=== PATIENT | female | born 1935 | race Caucasian/White ===

== ENCOUNTER → 2020-10-23 11:30 | Outpatient (CLI) | payer MEDICARE, OTHER, SELFPAY ==
--- NOTE | 2020-10-23 | DI.MRI.S_ITS ---
PROCEDURE: MR HEAD/BRAIN WO/W CON INDICATIONS: Other abnormalities of gait and mobility TECHNIQUE: Noncontrast axial T1 spin echo, axial T2 fast spin echo, sagittal and axial FLAIR, coronal T2 fast spin echo, axial gradient echo, axial diffusion and ADC through the brain. After the administration of contrast, axial and coronal T1 spin echo with fat saturation through the brain. COMPARISON: None. FINDINGS: Image quality: Excellent. CSF spaces: Basal cisterns are patent. No extra-axial fluid collections. Ventricles are normal in size and shape. Brain: No midline shift. No intracranial bleeds or masses. No abnormal intracranial enhancement. There is cerebral volume loss for age. There is periventricular white matter chronic small vessel ischemic change. The brainstem appears normal. Diffusion-weighted images demonstrate no acute ischemic insults. No chronic ischemic insults. Normal intravascular flow voids are present. Skull and face: Calvarial marrow is normal in signal. Orbits appear normal. Sinuses: Sinuses and mastoids appear clear. IMPRESSION: 1. No acute intracranial process. 2. Moderate atrophy and chronic microvascular ischemic changes. Dictated by: Sherry Fishman M.D. on 10/23/2020 at 16:37 Approved by: Sherry Fishman M.D. on 10/23/2020 at 16:40
== END ==
PROVIDERS: PCP Family Medicine; Referring Provider Nurse Practitioner; Visit Provider Nurse Practitioner
DX: R26.89 Other abnormalities of gait and mobility (principal); R29.6 Repeated falls; R51.9 Headache, unspecified
CPT/HCPCS: 70553; A9579

== ENCOUNTER → 2022-02-24 11:01 | Outpatient (CLI) | payer MEDICARE, OTHER, SELFPAY ==
--- NOTE | 2022-02-24 | DI.RAD.S_ITS ---
PROCEDURE: FL JOINT INJECTION MEDIUM LT INDICATIONS: Primary osteoarthritis, left shoulder COMPARISON: None. TECHNIQUE: The indications, alternatives, benefits, risks, and complications of the procedure were explained to the patient. Written informed consent was obtained and placed in the chart. The patient was placed in an appropriate position on the fluoroscopy table, and a site was chosen for percutaneous access under fluoroscopic guidance. The site was prepped and draped in a sterile fashion. Local anesthetic was administered using a 1% lidocaine solution. A hypodermic or spinal needle was then used to access the symptomatic joint. Intra-articular location of the needle tip was confirmed by injecting a small amount of contrast, followed by steroid administration. The needle was then withdrawn, and a bandage applied to the puncture site. FINDINGS: Joint injected: Left shoulder Medications injected: 4 mL of 40 mg/mL Kenalog and 0.5% Ropivacaine mixture. Patient's pain before injection: 7 out of 10. Patient's pain after injection: 0 out of 10. Complications: None. IMPRESSION: Successful fluoroscopically guided administration of steroid and anaesthetic solution into the left glenohumeral joint. Dictated by: Sb Castro M.D. on 02/24/2022 at 14:42 Approved by: Sb Castro M.D. on 02/24/2022 at 14:42
== END ==
PROVIDERS: PCP Counselor Mental Health; Referring Provider Counselor Mental Health; Visit Provider Counselor Mental Health
DX: M19.012 Primary osteoarthritis, left shoulder (principal)
CPT/HCPCS: 20605; 76000

== ENCOUNTER 2022-06-18 11:54 | Inpatient (IN) | payer MEDICARE, OTHER, SELFPAY ==
[2022-06-18] VITALS (19 sets, daily range): BP systolic 129–177; BP diastolic 55–107; PULSE 62–115; RESP 12–20; TEMP 36.1–37.2; O2SAT 94–100; BMI 26.9
--- NOTE | 2022-06-18 | DI.RAD.S_ITS ---
PROCEDURE: XR FEMUR RT MIN 2V INDICATIONS: Right Intramedullary Nailing Femur TECHNIQUE: 4 views of the femur were acquired. COMPARISON: [facility], CR, XR FEMUR RT MIN 2V, 06/18/2022, 13:36. FINDINGS: 4 intraoperative fluoroscopic images demonstrate postsurgical changes status post open reduction internal fixation of the previously visualized subtrochanteric fracture of the proximal right femur. There is improved alignment with interval placement of an intramedullary luisito and telescoping screws through the femoral neck. IMPRESSION: 1. Intraoperative films demonstrate improved alignment status post ORIF of a subtrochanteric right femoral fracture. Dictated by: Huber Stallworth M.D. on 06/18/2022 at 21:16 Approved by: Huber Stallworth M.D. on 06/18/2022 at 21:17
--- NOTE | 2022-06-18 12:14 | DI.RAD.S_ITS ---
PROCEDURE: XR HIP W PEL IF DONE RT 2V INDICATIONS: Fall TECHNIQUE: AP pelvis with lateral view(s) of the right hip(s). COMPARISON: None. FINDINGS: Bones: Acute slightly comminuted fracture involving intertrochanteric region of proximal right femur is seen with superior and medial migration of proximal femoral shaft in relation to femoral neck. Bilateral hip joint osteoarthritic changes are seen. No evidence of avascular necrosis of femoral head. Pelvic ring appears intact. No suspicious bony lesions. Soft tissues: The visualized bowel gas pattern is normal. No suspicious soft tissue calcifications. IMPRESSION: Comminuted and displaced fracture involving intertrochanteric region of right proximal femur as above. Dictated by: Sb Castro M.D. on 06/18/2022 at 13:09 Approved by: Sb Castro M.D. on 06/18/2022 at 13:10
--- NOTE | 2022-06-18 12:18 | DI.RAD.S_ITS ---
PROCEDURE: XR LUMBAR SPINE 2-3V INDICATIONS: fall TECHNIQUE: 3 views of the lumbar spine were acquired. COMPARISON: None. FINDINGS: Bones: 5 [id number] vertebrae are present. There is normal bony alignment. Loss of disc height, degenerative endplate changes and bilateral facet arthrosis throughout lumbar spine is seen most notably at L3-4 and L5-S1 levels. No vertebral body compression fractures. No suspicious bony lesions. Soft tissues: Overlying bowel gas pattern is normal. No suspicious soft tissue calcifications. IMPRESSION: No acute lumbar spine compression fracture or spondylolisthesis. Degenerative disc disease throughout lumbar spine as above. Dictated by: Sb Castro M.D. on 06/18/2022 at 13:06 Approved by: Sb Castro M.D. on 06/18/2022 at 13:07
[2022-06-18] MEDS: HYDROMORPHONE 0.5 MG INJ IV ×4 (12:31→22:30)
--- NOTE | 2022-06-18 12:33 | ED_ITS ---
HPI - Fall <JAYLEN Thomas - Last Filed: 06/18/22 16:09> General Chief Complaint: Fall Stated Complaint: fell backwards, pelvic pain, no thinners Time Seen by Provider: 06/18/22 12:13 Source: patient and EMS Mode of arrival: EMS History of Present Illness HPI Narrative: This is an 86-year-old female who presents to the emergency department via EMS after she stumbled on a step falling backwards on her buttocks and now complains of low back pain, right groin pain, right lateral hip pain and states that is much worse than her normal sciatica. Patient received 100 mics of fentanyl EN route to the emergency department, she did not hit her head, denies loss of consciousness or nausea vomiting. Patient's PCP is Dr. Bhatia. Patient has a history of chronic low back pain with sciatica. She is not anticoagulated, states that she is otherwise healthy. She is able to move her toes, denies any sensation changes, her foot is warm and she is able to dorsiflex and plantar extend. Patient states that she takes Benicar 40 mg daily and sertraline 25 mg, these are her medications. Has a history of osteoarthritis and hypertension. Her primary care provider is Dr. Smith. Related Data Home Medications Medication Instructions Recorded Confirmed olmesartan 40 mg tablet 40 mg PO DAILY 06/18/22 06/18/22 sertraline 25 mg tablet 25 mg PO DAILY 06/18/22 06/18/22 Allergies Allergy/AdvReac Type Severity Reaction Status Date / Time dihydroergotamine Allergy Verified 06/18/22 12:41 Review of Systems <JAYLEN Thomas - Last Filed: 06/18/22 16:09> Review of Systems ROS Unobtainable: All systems reviewed & are unremarkable except as noted in HPI and below Patient History <JAYLEN Thomas - Last Filed: 06/18/22 16:09> Social History household members: family Smoking Status: Never smoker alcohol intake: current Smoking Status: Never smoker alcohol intake frequency: 0-2 drinks per day Substance Use Type: does not use Exam <JAYLEN Thomas - Last Filed: 06/18/22 16:09> Narrative Exam Narrative: Reviewed vitals signs and nursing notes. General: cooperative, comfortable, in no acute distress, well groomed, complains of pain HEENT: symmetrical facial expressions, moist mucous membranes Cardiovascular: regular rate and rhythm, no peripheral edema, warm extremities Respiratory: normal effort, able to speak in complete sentences, without wheezing, stridor, or abnormal breath sounds. No retractions or tachypnea. GI: abdomen soft, nontender to palpation, nondistended, without masses, rebound tenderness or exquisite tenderness with exam. MSK: moves all extremities, neurovascularly intact, no weakness, normal tone, patient able to dorsiflex and plantar extend on the right without deficit, PT and DP pulses are 2+, right lower extremity is not significantly shortened or rotated, movement of right leg elicits right hip pain and right inguinal pain, patient denies numbness to her groin or incontinence Foot is neurovascularly intact, patient able to move her lower extremity Skin: brisk capillary refill, without pallor or erythema Neuro: normal speech and cognition, A&O x3, clear speech Psych: mental status is grossly normal, congruent mood, normal affect, pleasant and cooperative Initial Vital Signs Initial Vital Signs: Vital Signs Temperature 97.6 F 06/18/22 12:02 Pulse Rate 77 06/18/22 12:02 Blood Pressure 164/72 H 06/18/22 12:02 Pulse Oximetry 98 06/18/22 12:02 Oxygen Delivery Method 06/18/22 12:02 <Azeem Dolan MD - Last Filed: 06/18/22 17:40> Initial Vital Signs Initial Vital Signs: Vital Signs Temperature 97.6 F 06/18/22 12:02 Pulse Rate 77 06/18/22 12:02 Blood Pressure 164/72 H 06/18/22 12:02 Pulse Oximetry 98 06/18/22 12:02 Oxygen Delivery Method 06/18/22 12:02 Course <JAYLEN Thomas - Last Filed: 06/18/22 16:09> Orders Ordered: ED Orders 06/18/22 12:14 XR hip w pel if done RT 2V Stat 06/18/22 12:18 XR lumbar spine 2-3V Stat 06/18/22 13:23 Consult to Orthopedic Surgery Stat 06/18/22 13:26 CT pelvis wo con Stat XR femur RT min 2V Stat Covid-19 + FLU A/B + RSV - PCR Stat 06/18/22 13:50 Consult to Occupational Therapy Evaluate & Treat Consult to Physical Therapy Evaluate & Treat 06/18/22 14:14 CBC Auto Diff [Complete Blood Count AUTO DIFF] Stat CMP [Comprehensive Metabolic Panel] Stat Magnesium Urgent Prothrombin Time INR Stat 06/19/22 05:00 BMP [Basic Metabolic Panel] DAILY CBC Auto Diff [Complete Blood Count AUTO DIFF] DAILY 06/20/22 05:00 BMP [Basic Metabolic Panel] DAILY CBC Auto Diff [Complete Blood Count AUTO DIFF] DAILY 06/21/22 05:00 BMP [Basic Metabolic Panel] DAILY CBC Auto Diff [Complete Blood Count AUTO DIFF] DAILY Acetaminophen (Acetaminophen 325 Mg Tablet) 650 mg PO Q6H PRN PRN Reason: Fever/Mild Pain (1-3) Hydromorphone HCl (Hydromorphone 0.5 Mg Inj) 0.5 mg IV Q4H PRN PRN Reason: Pain, Moderate (4-6) Last Admin: 06/18/22 16:30 Dose: 0.5 mg Documented By: RYAN Sodium Chloride (Normal Saline 0.9%) 1,000 mls @ 100 mls/hr IV CONT ANAIS Last Admin: 06/18/22 16:28 Dose: 100 mls/hr Documented By: Infusion: 06/18/22 16:28 Dose: 0 mls/hr Documented By: Infusion: 06/18/22 15:20 Dose: 0 mls/hr Documented By: Admin: 06/18/22 14:33 Dose: 100 mls/hr Documented By: JASMINA Melatonin (Melatonin 3 Mg Tablet) 6 mg PO BEDTIME PRN PRN Reason: Insomnia Oxycodone HCl (Oxycodone Ir 5 Mg Tablet) 5 mg PO Q4HR PRN PRN Reason: Pain, Moderate (4-6) Polyethylene Glycol (Polyethylene Glycol 3350 17 Gm Powd.Pack) 17 gm PO DAILY PRN PRN Reason: Constipation Sennosides (Sennosides 8.6 Mg Tablet) 8.6 mg PO BID PRN PRN Reason: Constipation Discontinued Medications Hydrocodone Bitart/Acetaminophen (Hydrocodone/Acet 5/325 Tablet) 1 tab PO NOW ONE Stop: 06/18/22 12:38 Last Admin: 06/18/22 13:34 Dose: Not Given Documented By: JASMINA Hydromorphone HCl (Hydromorphone 0.5 Mg Inj) 0.5 mg IV NOW ONE Stop: 06/18/22 12:19 Last Admin: 06/18/22 12:31 Dose: 0.5 mg Documented By: DARRIN Hydromorphone HCl (Hydromorphone 0.5 Mg Inj) 0.5 mg IV NOW ONE Stop: 06/18/22 14:20 Last Admin: 06/18/22 14:32 Dose: 0.5 mg Documented By: JASMINA Ketorolac Tromethamine (Ketorolac 30 Mg/Ml Vial) 15 mg IV NOW ONE Stop: 06/18/22 12:38 Last Admin: 06/18/22 15:16 Dose: Not Given Documented By: JASMINA Lidocaine (Lidocaine Patch 1 Each Adh..Patch) 1 each TOP NOW ONE Stop: 06/18/22 12:38 Last Admin: 06/18/22 15:16 Dose: Not Given Documented By: JASMINA Consultations Consultation #1: Consultation with Dr. Mann regarding patient's right femur fracture, he would like to take patient to the operating room MADY esparzaO, orders were placed for imaging per his request, he will admit through the hospitalist and see patient later today. He is aware that patient is neurovascularly intact and her pain control. Vital Signs Vital signs: Vital Signs - 8 hr 06/18/22 12:02 06/18/22 13:07 06/18/22 13:08 Temperature 97.6 F Pulse Rate 77 69 70 Respiratory Rate Blood Pressure 164/72 H Pulse Oximetry 98 100 100 Oxygen Delivery Method Room Air Room Air 06/18/22 13:09 06/18/22 13:09 06/18/22 13:30 Temperature Pulse Rate 65 Respiratory Rate Blood Pressure 151/67 H 160/74 H Pulse Oximetry 100 Oxygen Delivery Method 06/18/22 13:30 06/18/22 13:10 Temperature Pulse Rate 70 68 Respiratory Rate 18 Blood Pressure 151/67 H Pulse Oximetry 99 97 Oxygen Delivery Method Room Air <Azeem Dolan MD - Last Filed: 06/18/22 17:40> Orders Ordered: ED Orders 06/18/22 12:14 XR hip w pel if done RT 2V Stat 06/18/22 12:18 XR lumbar spine 2-3V Stat 06/18/22 13:23 Consult to Orthopedic Surgery Stat 06/18/22 13:26 CT pelvis wo con Stat XR femur RT min 2V Stat Covid-19 + FLU A/B + RSV - PCR Stat 06/18/22 13:50 Consult to Occupational Therapy Evaluate & Treat Consult to Physical Therapy Evaluate & Treat 06/18/22 14:14 CBC Auto Diff [Complete Blood Count AUTO DIFF] Stat CMP [Comprehensive Metabolic Panel] Stat Magnesium Urgent Prothrombin Time INR Stat 06/19/22 05:00 BMP [Basic Metabolic Panel] DAILY CBC Auto Diff [Complete Blood Count AUTO DIFF] DAILY 06/20/22 05:00 BMP [Basic Metabolic Panel] DAILY CBC Auto Diff [Complete Blood Count AUTO DIFF] DAILY 06/21/22 05:00 BMP [Basic Metabolic Panel] DAILY CBC Auto Diff [Complete Blood Count AUTO DIFF] DAILY Acetaminophen (Acetaminophen 325 Mg Tablet) 650 mg PO Q6H PRN PRN Reason: Fever/Mild Pain (1-3) Hydromorphone HCl (Hydromorphone 0.5 Mg Inj) 0.5 mg IV Q4H PRN PRN Reason: Pain, Moderate (4-6) Last Admin: 06/18/22 16:30 Dose: 0.5 mg Documented By: RYAN Sodium Chloride (Normal Saline 0.9%) 1,000 mls @ 100 mls/hr IV CONT ANAIS Last Admin: 06/18/22 16:28 Dose: 100 mls/hr Documented By: Infusion: 06/18/22 16:28 Dose: 0 mls/hr Documented By: Infusion: 06/18/22 15:20 Dose: 0 mls/hr Documented By: Admin: 06/18/22 14:33 Dose: 100 mls/hr Documented By: JASMINA Melatonin (Melatonin 3 Mg Tablet) 6 mg PO BEDTIME PRN PRN Reason: Insomnia Oxycodone HCl (Oxycodone Ir 5 Mg Tablet) 5 mg PO Q4HR PRN PRN Reason: Pain, Moderate (4-6) Polyethylene Glycol (Polyethylene Glycol 3350 17 Gm Powd.Pack) 17 gm PO DAILY PRN PRN Reason: Constipation Sennosides (Sennosides 8.6 Mg Tablet) 8.6 mg PO BID PRN PRN Reason: Constipation Discontinued Medications Hydrocodone Bitart/Acetaminophen (Hydrocodone/Acet 5/325 Tablet) 1 tab PO NOW ONE Stop: 06/18/22 12:38 Last Admin: 06/18/22 13:34 Dose: Not Given Documented By: JASMINA Hydromorphone HCl (Hydromorphone 0.5 Mg Inj) 0.5 mg IV NOW ONE Stop: 06/18/22 12:19 Last Admin: 06/18/22 12:31 Dose: 0.5 mg Documented By: DARRIN Hydromorphone HCl (Hydromorphone 0.5 Mg Inj) 0.5 mg IV NOW ONE Stop: 06/18/22 14:20 Last Admin: 06/18/22 14:32 Dose: 0.5 mg Documented By: JASMINA Ketorolac Tromethamine (Ketorolac 30 Mg/Ml Vial) 15 mg IV NOW ONE Stop: 06/18/22 12:38 Last Admin: 06/18/22 15:16 Dose: Not Given Documented By: JASMINA Lidocaine (Lidocaine Patch 1 Each Adh..Patch) 1 each TOP NOW ONE Stop: 06/18/22 12:38 Last Admin: 06/18/22 15:16 Dose: Not Given Documented By: JASMINA Vital Signs Vital signs: Vital Signs - 8 hr 06/18/22 12:02 06/18/22 13:07 06/18/22 13:08 Temperature 97.6 F Pulse Rate 77 69 70 Respiratory Rate Blood Pressure 164/72 H Pulse Oximetry 98 100 100 Oxygen Delivery Method Room Air Room Air 06/18/22 13:09 06/18/22 13:09 06/18/22 13:30 Temperature Pulse Rate 65 Respiratory Rate Blood Pressure 151/67 H 160/74 H Pulse Oximetry 100 Oxygen Delivery Method 06/18/22 13:30 06/18/22 13:10 Temperature Pulse Rate 70 68 Respiratory Rate 18 Blood Pressure 151/67 H Pulse Oximetry 99 97 Oxygen Delivery Method Room Air MDM - Fall <Blossom Baxter, MACHINING ASSOCIATE - Last Filed: 06/18/22 16:09> Lab Data Result diagrams: 06/18/22 14:14 06/18/22 14:14 Labs: Lab Results 06/18/22 Range/Units 13:26 SARS-CoV-2 (PCR) Negative (Negative) Influenza A (RT-PCR) Flu a negative (NEGATIVE) Influenza B (RT-PCR) Flu b negative (NEGATIVE) RSV (PCR) Negative (Negative) Imaging Data lumbar xr: Radiologist's Impression: PROCEDURE:? XR LUMBAR SPINE 2-3V ? INDICATIONS:? fall ? TECHNIQUE:? 3 views of the lumbar spine were acquired.? ? COMPARISON:? None. ? FINDINGS:? ? Bones:? 5 [id number] vertebrae are present.? There is normal bony alignment.? Loss of disc height, degenerative endplate changes and bilateral facet arthrosis throughout lumbar spine is seen most notably at L3-4 and L5-S1 levels.? No vertebral body compression fractures.? No suspicious bony lesions.? ? Soft tissues:? Overlying bowel gas pattern is normal.? No suspicious soft tissue calcifications.? ? ? IMPRESSION:? No acute lumbar spine compression fracture or spondylolisthesis.? Degenerative disc disease throughout lumbar spine as above. ? ? Dictated by: Sb Castro M.D. on 06/18/2022 at 13:06 ? ? Approved by: Sb Castro M.D. on 06/18/2022 at 13:07 ? hip/pelvis xr : Radiologist's Impression: PROCEDURE:? XR HIP W PEL IF DONE RT 2V ? INDICATIONS:? Fall ? TECHNIQUE:? AP pelvis with lateral view(s) of the right hip(s).? ? COMPARISON:? None. ? FINDINGS:? ? Bones:? Acute slightly comminuted fracture involving intertrochanteric region of proximal right femur is seen with superior and medial migration of proximal femoral shaft in relation to femoral neck.? Bilateral hip joint osteoarthritic changes are seen.? No evidence of avascular necrosis of femoral head.? Pelvic ring appears intact.? No suspicious bony lesions.? ? Soft tissues:? The visualized bowel gas pattern is normal.? No suspicious soft tissue calcifications.? ? ? IMPRESSION:? Comminuted and displaced fracture involving intertrochanteric region of right proximal femur as above. ? Dictated by: Sb Castro M.D. on 06/18/2022 at 13:09 ? ? Approved by: Sb Castro M.D. on 06/18/2022 at 13:10 ? CT pelvis: Radiologist's Impression: PROCEDURE:? CT PEL WO CON ? INDICATIONS:? Right intertrochanteric fracture ? TECHNIQUE:? Noncontrast 3 mm axial sections acquired through the bony pelvis, with coronal and sagittal reformatting.? ? COMPARISON:? [facility], CR, XR HIP W PEL IF DONE RT 2V, 06/18/2022, 12:30. ? FINDINGS:? Image quality:? Excellent.? ? Bones:? There is an acute comminuted fracture involving proximal shaft of right femur with medial and proximal migration of proximal femoral shaft in relation to femoral neck and up to 6 mm impaction and up to 1.3 cm medial displacement at fracture site.? Fracture line is seen extending to involve lesser trochanter with slightly anterior and medial displacement of fractured fragments.? No other fracture or dislocation.? Right worse than left bilateral hip joint osteoarthritic changes are seen with joint space narrowing, subchondral sclerosis and marginal osteophyte formation.? No avascular necrosis of femoral head. ? Soft tissues:? There is significant soft tissue swelling and edema surrounding proximal femoral fracture site.? Asymmetrically enlarged right vastus intermedius muscle is noted anterior to the femoral shaft suggestive of intramuscular hematoma.? No abnormal soft tissue calcifications.? No significant right hip joint effusion.? No gross intra-articular loose bodies.? There is no pelvic free fluid or free air.? No abnormal bowel wall thickening.? Bladder wall thickness is normal.? Sigmoid diverticulosis is seen without evidence of acute diverticulitis. ? ? IMPRESSION:? ? 1. Acute comminuted and displaced fracture involving proximal right femoral shaft with extension to involve lesser trochanter as above.? No other fracture or dislocation. ? 2. Bilateral hip joint osteoarthritis.? No evidence of avascular necrosis of femoral head.? No suspicious intraosseous lesion. ? 3. Significant soft tissue swelling and edema surrounding proximal humeral shaft fracture site with suggestion of intramuscular hematoma in adjacent right anterior upper thigh muscle possibly involving vastus intermedius muscle. ? ? 4. No pelvic free fluid or free air.? ? Dictated by: Sb Castro M.D. on 06/18/2022 at 13:43 ? ? Approved by: Sb Castro M.D. on 06/18/2022 at 13:49 ? femur xr: Radiologist's Impression: PROCEDURE:? XR FEMUR RT MIN 2V ? INDICATIONS:? intertrochanteric fractuer ? TECHNIQUE:? 4 views of the femur were acquired.? ? COMPARISON:? None. ? FINDINGS:? ? Bones:? Acute comminuted and displaced fracture involving proximal right femoral shaft is seen with fracture line extending to involve lesser trochanter.? There is proximal and medial displacement of proximal femoral shaft in relation to femoral neck.? No fracture or dislocation is seen in mid to distal right femur..? No suspicious bony lesions.? ? Soft tissues:? No suspicious soft tissue calcifications or masses.? ? IMPRESSION:? Acute comminuted and displaced proximal femoral fracture as above.? No mid to distal femoral fracture.? ? Dictated by: Sb Castro M.D. on 06/18/2022 at 13:50 ? ? Approved by: Sb Castro M.D. on 06/18/2022 at 13:52 ? MDM Narrative Medical decision making narrative: This is an 86-year-old female presents to the emergency department via EMS after a mechanical fall where she stumbled after tripping on uneven ground falling backwards onto her right hip and sustained a closed comminuted and displaced fracture of the proximal right femoral shaft with extension to the lesser trochanter. Proximal and medial displacement of the proximal femoral shaft in relation to the femoral neck. Imaging reflex bilateral hip osteoarthritis as well, pelvis CT, x-rays and lumbar x-rays above. Patient is neurovascularly intact, consultation with Dr. Alexus BURNS from Orthopedics who will take patient to the operating room tonight, she has been NPO since 03/10 this morning, does not have history of significant medical conditions. Her pain has been treated with hydromorphone in the emergency department, she has tolerated her pain well, consultation with Dr. Moses who accepts patient for admission, likely observation status. Lab work is pending, Patient was informed of lab and imaging results, pertinent diagnoses, consulting physicians, and treatment plan. I have spoken with the patient in regard to admission, patient understands and agrees. I have communicated the patient's evaluation and treatment plan to the admitting physician who agrees with admission. All questions answered at this time. <Azeem Dolan MD - Last Filed: 06/18/22 17:40> Lab Data Labs: Lab Results 06/18/22 Range/Units 13:26 SARS-CoV-2 (PCR) Negative (Negative) Influenza A (RT-PCR) Flu a negative (NEGATIVE) Influenza B (RT-PCR) Flu b negative (NEGATIVE) RSV (PCR) Negative (Negative) Discharge Plan Departure Patient Disposition: Admitted as Observation Clinical Impression: Hx of osteoarthritis Closed right femoral fracture Qualifiers: Encounter type: initial encounter Femur location: shaft Fracture morphology: comminuted Fracture alignment: displaced Qualified Code(s): S72.351A - Displaced comminuted fracture of shaft of right femur, initial encounter for closed fracture Fall Qualifiers: Encounter type: initial encounter Qualified Code(s): W19.XXXA - Unspecified fall, initial encounter Admit Date/Time: 06/18/22 13:54 Admit Provider: Ry Moses <Azeem Dolan MD - Last Filed: 06/18/22 17:40> Cosign ED Attending Cosignature Attestation: I was immediately available in the department for consultation. ?This documentation has been reviewed and I agree with assessment and plan. Supervised by Azeem Dolan MD
--- NOTE | 2022-06-18 13:26 | DI.RAD.S_ITS ---
PROCEDURE: XR FEMUR RT MIN 2V INDICATIONS: intertrochanteric fractuer TECHNIQUE: 4 views of the femur were acquired. COMPARISON: None. FINDINGS: Bones: Acute comminuted and displaced fracture involving proximal right femoral shaft is seen with fracture line extending to involve lesser trochanter. There is proximal and medial displacement of proximal femoral shaft in relation to femoral neck. No fracture or dislocation is seen in mid to distal right femur.. No suspicious bony lesions. Soft tissues: No suspicious soft tissue calcifications or masses. IMPRESSION: Acute comminuted and displaced proximal femoral fracture as above. No mid to distal femoral fracture. Dictated by: Sb Castro M.D. on 06/18/2022 at 13:50 Approved by: Sb Castro M.D. on 06/18/2022 at 13:52
--- NOTE | 2022-06-18 13:26 | DI.CT.S_ITS ---
PROCEDURE: CT PEL WO CON INDICATIONS: Right intertrochanteric fracture TECHNIQUE: Noncontrast 3 mm axial sections acquired through the bony pelvis, with coronal and sagittal reformatting. COMPARISON: [facility], CR, XR HIP W PEL IF DONE RT 2V, 06/18/2022, 12:30. FINDINGS: Image quality: Excellent. Bones: There is an acute comminuted fracture involving proximal shaft of right femur with medial and proximal migration of proximal femoral shaft in relation to femoral neck and up to 6 mm impaction and up to 1.3 cm medial displacement at fracture site. Fracture line is seen extending to involve lesser trochanter with slightly anterior and medial displacement of fractured fragments. No other fracture or dislocation. Right worse than left bilateral hip joint osteoarthritic changes are seen with joint space narrowing, subchondral sclerosis and marginal osteophyte formation. No avascular necrosis of femoral head. Soft tissues: There is significant soft tissue swelling and edema surrounding proximal femoral fracture site. Asymmetrically enlarged right vastus intermedius muscle is noted anterior to the femoral shaft suggestive of intramuscular hematoma. No abnormal soft tissue calcifications. No significant right hip joint effusion. No gross intra-articular loose bodies. There is no pelvic free fluid or free air. No abnormal bowel wall thickening. Bladder wall thickness is normal. Sigmoid diverticulosis is seen without evidence of acute diverticulitis. IMPRESSION: 1. Acute comminuted and displaced fracture involving proximal right femoral shaft with extension to involve lesser trochanter as above. No other fracture or dislocation. 2. Bilateral hip joint osteoarthritis. No evidence of avascular necrosis of femoral head. No suspicious intraosseous lesion. 3. Significant soft tissue swelling and edema surrounding proximal humeral shaft fracture site with suggestion of intramuscular hematoma in adjacent right anterior upper thigh muscle possibly involving vastus intermedius muscle. 4. No pelvic free fluid or free air. Dictated by: Sb Castro M.D. on 06/18/2022 at 13:43 Approved by: Sb Castro M.D. on 06/18/2022 at 13:49
[2022-06-18 14:31] LABS: Influenza A - CEPHEID Flu A NEGATIVE (NEGATIVE); Influenza B - CEPHEID Flu B NEGATIVE (NEGATIVE); Respiratory Syncytial Virus Negative (Negative)
[2022-06-18 14:32] LABS: COVID-19 CEPHEID 4-PLEX PCR Negative (Negative)
[2022-06-18] MEDS: SODIUM CHLORIDE 0.9% 1,000 ML 100 ML IV ×3 (14:33→22:29)
[2022-06-18 14:36] LABS: Appearance Urine UA CLEAR; Bilirubin Urine UA NEGATIVE (NEGATIVE); Color Urine UA YELLOW; Glucose Urine UA NEGATIVE (Negative); Ketones Urine UA NEGATIVE (NEGATIVE); Leukocyte Esterase Urine UA NEGATIVE (NEGATIVE); Nitrite Urine UA NEGATIVE (Negative); Occult Blood Urine UA TRACE-INTACT (Negative); Protein Urine UA NEGATIVE (Negative); Specific Gravity Urine UA 1.025 (1.000-1.035); Urobilinogen Urine UA 0.2 E.U./dL (0.2)
[2022-06-18 14:52] LABS: Bacteria Urine None Seen; Culture Indicated Urine Cult Not Indicated; RBC Urine 1-5/HPF (0-5/HPF); Squamous Epithelial Cell Urine None Seen (0-5/HPF); WBC Urine None Seen (0-5/HPF)
[2022-06-18 15:09] LABS: Add Manual Diff / Slide Review NO; Basophils Absolute Auto 0 /uL (0-100); Basophils Percent Auto 0.1 % (0-2); Eosinophils Absolute Auto 0 /uL (0-450); Eosinophils Percent Auto 0.1 % (2-4); Hemoglobin 10.9 g/dL (12.0-16.0); Lymphocytes Absolute Auto 600 /uL (1100-4500); Lymphocytes Percent Auto 4.7 % (25-40); Mean Corpuscular Hemoglobin 29.7 PG (26-34); Mean Corpuscular Volume 90.1 fL (80-100); Monocytes Absolute Auto 400 /uL (0-900); Monocytes Percent Auto 2.7 % (3-14); Neutrophils Absolute Auto 12300 /uL (1500-7000); Neutrophils Percent Auto 92.4 % (50-75); Platelet Count 196 X10^3/uL (150-400); Red Blood Cell Count 3.67 X10^6/uL (4.0-5.2); Red Cell Distribution Width 19.1 % (11.6-14.8); White Blood Cell Count 13.3 X10^3/uL (4.5-11.0)
[2022-06-18 15:10] LABS: Prothrombin Time 11.7 SECONDS (10.1-12.7)
[2022-06-18 15:16] LABS: Alanine Aminotransferase 26 IU/L (<35); Albumin 4.2 g/dL (3.5-5.0); Albumin Globulin Ratio 1.4 (1.0-2.8); Alkaline Phosphatase 81 U/L (38-126); Aspartate Aminotransferase 34 IU/L (14-36); BUN Creatinine Ratio 37.7 (6-22); Bilirubin Total 0.3 mg/dL (0.2-1.3); Blood Urea Nitrogen 23 mg/dL (7-17); Calcium 10.2 mg/dL (8.4-10.2); Carbon Dioxide 27 mmol/L (22-32); Chloride 105 mmol/L (98-107); Estimated Glomerular Filt Rate > 60 mL/min (>60); Globulin 3.1 g/dL (1.7-4.1); Glucose 145 mg/dL (80-110); HEMOLYSIS < 15 (0-50); Potassium 3.9 mmol/L (3.4-5.1); Sodium 139 mmol/L (137-145); Total Protein 7.3 g/dL (6.3-8.2)
--- NOTE | 2022-06-18 15:16 | PT-IP ANOTE ---
PT eval received. EMR reviewed. Pt s/p fall and has a R femoral fx and pending sx this afternoon. Talked with hospitalist and stated that eval order is for tomorrow after sx.
[2022-06-18 15:23] LABS: Magnesium 1.8 mg/dL (1.6-2.3)
--- NOTE | 2022-06-18 17:52 | SUR.HOLD ---
Patient to pre-op holding area from room 212 in stable condition via bed. VSS. GCS 15; garcias catheter draining to bedside bag without difficulty.
[2022-06-18] MEDS: LACTATED RINGERS 1,000 ML 42 ML IV ×2 (17:55→19:46)
--- NOTE | 2022-06-18 17:59 | PC.NURSE ---
Addendum entered by Susan Arredondo R.N. 06/18/22 18:38: 300 ml output from [facility] Original Note: 1730: Off floor to pre op with Sonia HAMPTON. Continue NPO.
--- NOTE | 2022-06-18 18:02 | P.HP_ITS ---
History of Present Illness History of Present Illness Date Patient Seen: 06/18/22 Chief complaint: fell backwards, pelvic pain, no thinners Narrative: Christian Villagran is an 86yo F with PMH of depression and HTN who presents with right femur fracture after fall at home. She was reaching for a doorknob and missed the handle, losing her balance then falling on her right side. In the ED found to have a right trochanteric fracture. She has never broken a bone before. Her pain is currently low without movement of her right leg. Dr. Lopez ortho consulted from ED who will take for surgery tomorrow. She denies any CP, SBO, cough, abd pain, NV or diarrhea. Patient History Family & Social History Social History: household members family Prior Living Arrangements House Safety & Behavioral: Feels Safe in Current Yes Environment Been Physically Hurt or No Threatened By a Person Tobacco & Substance use: Smoking Status Never smoker alcohol intake current alcohol intake frequency 0-2 drinks per day Substance Use Type does not use Meds Home Medications and Allergies Home Medications Medication Instructions Recorded Confirmed Type olmesartan 40 mg tablet 40 mg PO DAILY 06/18/22 06/18/22 History sertraline 25 mg tablet 25 mg PO DAILY 06/18/22 06/18/22 History Allergies Allergy/AdvReac Type Severity Reaction Status Date / Time dihydroergotamine Allergy Verified 06/18/22 12:41 Review of Systems Review of Systems Narrative: All other systems reviewed with the patient and are negative unless otherwise stated. Exam Vital Signs (past 8 hours): - 06/18/22 12:02 06/18/22 13:07 06/18/22 13:08 Temperature 97.6 F Pulse Rate 77 69 70 Respiratory Rate Blood Pressure 164/72 H Pulse Oximetry 98 100 100 Oxygen Delivery Method Room Air Room Air 06/18/22 13:09 06/18/22 13:09 06/18/22 13:30 Temperature Pulse Rate 65 Respiratory Rate Blood Pressure 151/67 H 160/74 H Pulse Oximetry 100 Oxygen Delivery Method 06/18/22 13:30 06/18/22 14:00 06/18/22 14:18 Temperature Pulse Rate 70 70 Respiratory Rate Blood Pressure 177/107 H Pulse Oximetry 99 99 Oxygen Delivery Method Room Air 06/18/22 14:18 06/18/22 14:30 06/18/22 14:30 Temperature Pulse Rate 76 72 Respiratory Rate Blood Pressure 174/102 H Pulse Oximetry 99 100 Oxygen Delivery Method Room Air Room Air 06/18/22 13:10 06/18/22 15:00 06/18/22 16:47 Temperature 98.5 F Pulse Rate 68 71 62 Respiratory Rate 18 16 Blood Pressure 151/67 H 131/65 Pulse Oximetry 97 94 96 Oxygen Delivery Method Room Air Room Air 06/18/22 17:49 Temperature 99 F Pulse Rate 70 Respiratory Rate 20 Blood Pressure 170/71 H Pulse Oximetry 99 Oxygen Delivery Method Room Air Oxygen Delivery Method Room Air Narrative Exam Narrative: GEN: no acute distress, elderly woman who appears younger than stated age HEENT: moist mucous membranes, PERRL NECK: trachea midline, no JVD CV: regular rate and rhythm, no murmurs PULM: clear bilaterally ABD: soft, nontender, nondistended, no organomegaly EXT: Right extremity externally rotated NEURO: awake, alert, oriented, no focal deficits Objective Labs Result Diagrams: 06/18/22 14:14 06/18/22 14:14 Labs: Laboratory Results - last 24 hr 06/18/22 06/18/22 06/18/22 13:26 14:10 14:14 WBC 13.3 H RBC 3.67 L Hgb 10.9 L Hct 33.0 L MCV 90.1 MCH 29.7 MCHC 33.0 RDW 19.1 H Plt Count 196 Neut % (Auto) 92.4 H Lymph % (Auto) 4.7 L [place] % (Auto) 2.7 L Eos % (Auto) 0.1 L Baso % (Auto) 0.1 Neut # (Auto) 97192 H Lymph # (Auto) 600 L [place] # (Auto) 400 Eos # (Auto) 0 Baso # (Auto) 0 PT INR Sodium Potassium Chloride Carbon Dioxide BUN Creatinine Estimated GFR BUN/Creatinine Ratio Glucose Calcium Magnesium Total Bilirubin AST ALT Alkaline Phosphatase Total Protein Albumin Globulin Albumin/Globulin Ratio Urine Color Yellow Urine Appearance Clear Urine pH 5.0 Ur Specific [place] 1.025 Urine Protein Negative Urine Glucose (UA) Negative Urine Ketones Negative Urine Occult Blood Trace-intact Urine Nitrate Negative Urine Bilirubin Negative Urine Urobilinogen 0.2 Ur Leukocyte Esterase Negative Urine RBC 1-5/hpf Urine WBC None seen Ur Squamous Epith Cells None seen Urine Bacteria None seen Ur Culture Indicated? Cult not indicated SARS-CoV-2 (PCR) Negative Influenza A (RT-PCR) Flu a negative Influenza B (RT-PCR) Flu b negative RSV (PCR) Negative 06/18/22 06/18/22 06/18/22 14:14 14:14 14:14 WBC RBC Hgb Hct MCV MCH MCHC RDW Plt Count Neut % (Auto) Lymph % (Auto) [place] % (Auto) Eos % (Auto) Baso % (Auto) Neut # (Auto) Lymph # (Auto) [place] # (Auto) Eos # (Auto) Baso # (Auto) PT 11.7 INR 1.0 Sodium 139 Potassium 3.9 Chloride 105 Carbon Dioxide 27 BUN 23 H Creatinine 0.61 Estimated GFR > 60 BUN/Creatinine Ratio 37.7 H Glucose 145 H Calcium 10.2 Magnesium 1.8 Total Bilirubin 0.3 AST 34 ALT 26 Alkaline Phosphatase 81 Total Protein 7.3 Albumin 4.2 Globulin 3.1 Albumin/Globulin Ratio 1.4 Urine Color Urine Appearance Urine pH Ur Specific [place] Urine Protein Urine Glucose (UA) Urine Ketones Urine Occult Blood Urine Nitrate Urine Bilirubin Urine Urobilinogen Ur Leukocyte Esterase Urine RBC Urine WBC Ur Squamous Epith Cells Urine Bacteria Ur Culture Indicated? SARS-CoV-2 (PCR) Influenza A (RT-PCR) Influenza B (RT-PCR) RSV (PCR) Assessment & Plan Assessment & Plan narrative: # right femur fracture 2/2 GLF -sustained after losing balance accidentally at home and falling on right side -R hip CT with acute comminuted and displaced fracture involving proximal right femoral shaft with extension to involve lesser trochanter -Dr. Mann, ortho consulting and will take for repair on 06/19 -pain control with oxycodone as needed and Dilaudid as needed -laxatives as needed to prevent constipation -PT/OT eval following surgery -patient should have outpatient DEXA scan to screen for osteoporosis # mild leukocytosis -likely stress related, low clinical suspicion for infection -UA negative # hypertension, chronic -continue home olmesartan # depression -continue home sertraline Code status is DNR. COVID negative. DVT prophylaxis with SCDs then Lovenox following surgery. Proxy is her son Greg. I have reviewed home meds and used all available resources to reconcile the home meds. This patient will be admitted as inpatient and will require greater than 2 midnights of hospital time to treat right hip fracture. Time Spent With Patient Critical Care time: I spent a total of [] minutes of critical care time on this patient's care today; this time is exclusive of procedural time. Quality VTE Deep Vein Thrombosis/Pulmonary Embolism Present on Admission: No
--- NOTE | 2022-06-18 18:33 | PM.HP.1 ---
History of Present Illness History of Present Illness Date Patient Seen: 06/18/22 Time Patient Seen: 18:33 Date of Onset of Symptoms: 06/18/22 Chief complaint: fell backwards, pelvic pain, no thinners Narrative: Patient is seen in the preoperative holding unit. She states that she was grabbing for a door handle on her car when she fell backwards and landed on her right hip. She felt immediate pain could not bear weight. She was taken to the emergency department at [facility] where imaging was obtained demonstrating a reverse obliquity intertrochanteric femur fracture. She denies any distal numbness or tingling. She denies any recent nausea, vomiting, diarrhea, fevers, chills, shortness of breath or chest pain. No other complaints at this time. Patient History Family & Social History Social History: household members family Prior Living Arrangements House Safety & Behavioral: Feels Safe in Current Yes Environment Been Physically Hurt or No Threatened By a Person Tobacco & Substance use: Smoking Status Never smoker alcohol intake current alcohol intake frequency 0-2 drinks per day Substance Use Type does not use Meds Home Medications and Allergies Home Medications Medication Instructions Recorded Confirmed Type olmesartan 40 mg tablet 40 mg PO DAILY 06/18/22 06/18/22 History sertraline 25 mg tablet 25 mg PO DAILY 06/18/22 06/18/22 History Allergies Allergy/AdvReac Type Severity Reaction Status Date / Time dihydroergotamine Allergy Verified 06/18/22 12:41 Review of Systems Review of Systems ROS: Yes All systems reviewed with the patient and are negative except as otherwise documented Exam Vital Signs (past 8 hours): - 06/18/22 12:02 06/18/22 13:07 06/18/22 13:08 Temperature 97.6 F Pulse Rate 77 69 70 Respiratory Rate Blood Pressure 164/72 H Pulse Oximetry 98 100 100 Oxygen Delivery Method Room Air Room Air 06/18/22 13:09 06/18/22 13:09 06/18/22 13:30 Temperature Pulse Rate 65 Respiratory Rate Blood Pressure 151/67 H 160/74 H Pulse Oximetry 100 Oxygen Delivery Method 06/18/22 13:30 06/18/22 14:00 06/18/22 14:18 Temperature Pulse Rate 70 70 Respiratory Rate Blood Pressure 177/107 H Pulse Oximetry 99 99 Oxygen Delivery Method Room Air 06/18/22 14:18 06/18/22 14:30 06/18/22 14:30 Temperature Pulse Rate 76 72 Respiratory Rate Blood Pressure 174/102 H Pulse Oximetry 99 100 Oxygen Delivery Method Room Air Room Air 06/18/22 13:10 06/18/22 15:00 06/18/22 16:47 Temperature 98.5 F Pulse Rate 68 71 62 Respiratory Rate 18 16 Blood Pressure 151/67 H 131/65 Pulse Oximetry 97 94 96 Oxygen Delivery Method Room Air Room Air 06/18/22 17:49 Temperature 99 F Pulse Rate 70 Respiratory Rate 20 Blood Pressure 170/71 H Pulse Oximetry 99 Oxygen Delivery Method Room Air Oxygen Delivery Method Room Air Narrative Exam Narrative: HEENT: Head atraumatic, eyes anicteric moist mucous membranes Cardiovascular: Palpable pulses warm and well-perfused extremities Respiratory: Breathing comfortably on room air Neuro no acute deficits Psychiatric: Appropriate mood and affect Musculoskeletal: Focused exam of the right lower extremity demonstrates leg held flexed and in external rotation. She has sensation intact from light touch from L2 through S2. 2+ dorsalis pedis pulse with brisk capillary refill less than 2 seconds. Objective Labs Result Diagrams: 06/18/22 14:14 06/18/22 14:14 Labs: Laboratory Results - last 24 hr 06/18/22 06/18/22 06/18/22 13:26 14:10 14:14 WBC 13.3 H RBC 3.67 L Hgb 10.9 L Hct 33.0 L MCV 90.1 MCH 29.7 MCHC 33.0 RDW 19.1 H Plt Count 196 Neut % (Auto) 92.4 H Lymph % (Auto) 4.7 L [place] % (Auto) 2.7 L Eos % (Auto) 0.1 L Baso % (Auto) 0.1 Neut # (Auto) 86755 H Lymph # (Auto) 600 L [place] # (Auto) 400 Eos # (Auto) 0 Baso # (Auto) 0 PT INR Sodium Potassium Chloride Carbon Dioxide BUN Creatinine Estimated GFR BUN/Creatinine Ratio Glucose Calcium Magnesium Total Bilirubin AST ALT Alkaline Phosphatase Total Protein Albumin Globulin Albumin/Globulin Ratio Urine Color Yellow Urine Appearance Clear Urine pH 5.0 Ur Specific [place] 1.025 Urine Protein Negative Urine Glucose (UA) Negative Urine Ketones Negative Urine Occult Blood Trace-intact Urine Nitrate Negative Urine Bilirubin Negative Urine Urobilinogen 0.2 Ur Leukocyte Esterase Negative Urine RBC 1-5/hpf Urine WBC None seen Ur Squamous Epith Cells None seen Urine Bacteria None seen Ur Culture Indicated? Cult not indicated SARS-CoV-2 (PCR) Negative Influenza A (RT-PCR) Flu a negative Influenza B (RT-PCR) Flu b negative RSV (PCR) Negative 06/18/22 06/18/22 06/18/22 14:14 14:14 14:14 WBC RBC Hgb Hct MCV MCH MCHC RDW Plt Count Neut % (Auto) Lymph % (Auto) [place] % (Auto) Eos % (Auto) Baso % (Auto) Neut # (Auto) Lymph # (Auto) [place] # (Auto) Eos # (Auto) Baso # (Auto) PT 11.7 INR 1.0 Sodium 139 Potassium 3.9 Chloride 105 Carbon Dioxide 27 BUN 23 H Creatinine 0.61 Estimated GFR > 60 BUN/Creatinine Ratio 37.7 H Glucose 145 H Calcium 10.2 Magnesium 1.8 Total Bilirubin 0.3 AST 34 ALT 26 Alkaline Phosphatase 81 Total Protein 7.3 Albumin 4.2 Globulin 3.1 Albumin/Globulin Ratio 1.4 Urine Color Urine Appearance Urine pH Ur Specific [place] Urine Protein Urine Glucose (UA) Urine Ketones Urine Occult Blood Urine Nitrate Urine Bilirubin Urine Urobilinogen Ur Leukocyte Esterase Urine RBC Urine WBC Ur Squamous Epith Cells Urine Bacteria Ur Culture Indicated? SARS-CoV-2 (PCR) Influenza A (RT-PCR) Influenza B (RT-PCR) RSV (PCR) Assessment & Plan Assessment and plan (1) Closed right femoral fracture: Qualifiers: Encounter type: initial encounter Femur location: shaft Fracture alignment: displaced Fracture morphology: comminuted Qualified Code(s): S72.351A - Displaced comminuted fracture of shaft of right femur, initial encounter for closed fracture Status: Acute Plan Exam and imaging discussed with patient. She has a right reverse obliquity intertrochanteric femur fracture. We discussed treatment options. In order to facilitate early weight-bearing and reduce the risk of fracture nonunion or malunion we recommend operative fixation with intramedullary nail. The risks and benefits of surgery were discussed with her including the risk of bleeding, damage to internal structures, failure of hardware and need for future surgery as well as anesthesia. Patient agreed with these risks and wished to go forward with surgery. All of her questions were answered fully to her satisfaction as the son the consent. Time Spent With Patient Critical Care time: I spent a total of [] minutes of critical care time on this patient's care today; this time is exclusive of procedural time. Quality VTE Deep Vein Thrombosis/Pulmonary Embolism Present on Admission: No
[2022-06-18] MEDS: CEFAZOLIN 2 GM/100 ML PREMIX 100 ML IV (19:00)
[2022-06-18] MEDS: TRANEXAMIC ACID 1,000 MG in SODIUM CHLORIDE 0.9% 100 ML 200 MG IV (19:09)
--- NOTE | 2022-06-18 19:29 | SUR.OPER ---
Supine on padded [place] table with bilateral legs secured in padded positioning boots and suspended in positioning spars, operative leg in traction per surgeon. Head on one pillow. Arm on non-operative side secured on padded armboard <90 degrees abduction. Arm on operative side padded and resting across chest then secured with tape over sheet. Padded perineal post in place per surgeon.
[2022-06-18] MEDS: BUPIVACAINE 0.25% (PF) 30 ML, EPINEPHrine 0.15 MG INJ (19:36)
--- NOTE | 2022-06-18 20:43 | SUR.PHASEI ---
Patient to recovery room s/p right hip IM nailing in stable condition; vss; no distress noted; ice pack to site; Lungs CTA. Following simple commands when prompted.
--- NOTE | 2022-06-18 20:56 | P.OP_ITS ---
Operative Date/Time/Diagnoses Date of procedure: 06/18/22 Time of procedure: 20:56 Pre-op diagnosis: Right intertrochanteric femur fracture Post-op diagnosis: same Procedure & Clinicians Procedure: Intramedullary nail right hip Same procedure as scheduled: Yes Indications: This is an 86-year-old female who had a fall earlier today sustaining a right reverse obliquity intertrochanteric femur fracture. We discussed that in order to enable early mobilization to allow fracture healing and decrease the risk of nonunion and malunion we recommend operative fixation. The risks and benefits of the procedure were described in detail including the risk for infection, damage to internal structures, failure of hardware, need for further or future surgery, and risk of anesthesia. She expressed understanding with these risks and wished to go forward with surgery. Surgeon: Ajay Mann Click Yes if Unassisted: Yes Anesthesia Type: General Operative Notes Findings: Operative findings: Intertrochanteric hip fracture, reducible with traction using leverage to the operating table. Closure Type: primary Specimen(s): none sent Prosthetic devices, grafts, tissues, transplants, or devices: Bowie and nephew 10 x 36 cm intertan nail 100 mm lag screw 95 mm compression screw 5 x 35 mm interlocking screw 5 x 37.5 mm interlocking screw Estimated Blood Loss (mL): 50 Blood products transfused: none Procedure in detail: Details of operation: The patient's identity was verified. The right hip was verified and site of surgery was marked. Prophylactic antibiotics were administered. The patient was taken to the operating room and anesthesia was established. Patient was positioned supine on the operating table. The feet were padded and placed into the traction boots with the injured hip in slight adduction and the uninjured hip extended about 30?. A C-arm was then brought into the OR and positioned perpendicularly to allow visualization of the hip and AP and lateral planes. The fracture was reduced by applying longitudinal traction and internal rotation and a small amount of adduction. The lateral surface of the hip was sterilely prepped after which a vertical isolation drape was placed. The surgical team paused in the patient's identity, surgical procedure and surgical site were verified. Antibiotics were given. A small incision was made proximal to the greater trochanter through the fascia to the tip of the trochanter could be palpated. A threaded guide pin was then inserted through the tip of the greater trochanter to the level of the lesser tuberosity. Once the wire was appropriately positioned the entry hole was drilled. The entry/channel Reamer was used to enter the cortex and reamed the metaphyseal portion of the canal. The intramedullary nail was assembled on the insertion handle and the nail was inserted and its depth verified. Our attention was then turned to the proximal locking of the nail. A small incision was made laterally over the distal vastus tubercle, through the fascia down to the bone and the targeting jig sleeve was advanced to the bone. Under fluoroscopic control, a guidewire was positioned through the lateral cortex of the femoral neck and into the center of the femoral head. Once the wire was appropriately positioned, the length of nail was measured the lateral cortex was opened with a drill. The lag screw was assembled on the insertion handle and advanced over the guidewire into the center of the femoral head to beneath the subchondral surface. The compression screw was then placed in compressed under fluoroscopic imaging. Final AP and lateral projections were taken confirming correct nail and screw placement. Our attention was then directed distally to the interlocking of the nail. Fluoroscopy was positioned for perfect [place] technique. Two nonlocking interlocking screws were then placed. Final fluoroscopic images were then taken confirming screw position and final implant. The wounds were copiously irrigated. The subcutaneous area was closed with interrupted 2-0 Vicryl. The wound was then infiltrated with 0.5% lidocaine with epinephrine. The skin was then closed with ryley after which a sterile dressing was applied. Patient was subsequently transferred from the [place] table to the hospital bed. Disposition: The patient was taken to the recovery room in stable condition having tolerated the procedure without difficulty. Post-operative Condition: stable Disposition: PACU Plan for aftercare: Postoperative plan: Weightbearing as tolerated with crutches or walker for 4 weeks. After 4 weeks it is okay to ambulate without assistance if stable and strong enough. DVT prophylaxis for 4 weeks (default aspirin 81 mg b.i.d., is unable to take aspirin, and then Lovenox, 40 mg subcutaneous daily). Okay to change dressings to clean dry dressings after 3 days. Okay for dressings to come off completely at 7 days. Okay for warm soap and water to run over the incision and a shower or sponge bath, however no soaking the wound. Follow-up in 2 weeks with a PA for staple removal, and follow-up in [address] Mann with x-rays on arrival
[2022-06-18] MEDS: ONDANSETRON 4 MG/2 ML INJ IV (20:57)
[2022-06-18 22:15] LABS: Hematocrit 26.8 % (36-46); Hemoglobin 9.1 g/dL (12.0-16.0)
[2022-06-19] VITALS (9 sets, daily range): BP systolic 111–142; BP diastolic 42–62; PULSE 60–104; RESP 12–20; TEMP 36.4–37.3; O2SAT 93–98
[2022-06-19] MEDS: HYDROMORPHONE 0.5 MG INJ IV ×2 (02:00→05:44)
[2022-06-19 06:31] LABS: BUN Creatinine Ratio 30.6 (6-22); Blood Urea Nitrogen 19 mg/dL (7-17); Calcium 8.6 mg/dL (8.4-10.2); Carbon Dioxide 26 mmol/L (22-32); Chloride 104 mmol/L (98-107); Estimated Glomerular Filt Rate > 60 mL/min (>60); Glucose 130 mg/dL (80-110); HEMOLYSIS < 15 (0-50); Potassium 4.2 mmol/L (3.4-5.1); Sodium 135 mmol/L (137-145)
[2022-06-19 06:33] LABS: Add Manual Diff / Slide Review NO; Basophils Absolute Auto 0 /uL (0-100); Basophils Percent Auto 0.1 % (0-2); Eosinophils Absolute Auto 0 /uL (0-450); Eosinophils Percent Auto 0.1 % (2-4); Hematocrit 23.5 % (36-46); Hemoglobin 7.8 g/dL (12.0-16.0); Lymphocytes Absolute Auto 1100 /uL (1100-4500); Lymphocytes Percent Auto 10.8 % (25-40); Mean Corpuscular HGB Conc 32.9 % (30-36); Mean Corpuscular Hemoglobin 30.1 PG (26-34); Mean Corpuscular Volume 91.2 fL (80-100); Monocytes Absolute Auto 800 /uL (0-900); Monocytes Percent Auto 8.1 % (3-14); Neutrophils Absolute Auto 8300 /uL (1500-7000); Neutrophils Percent Auto 80.9 % (50-75); Platelet Count 163 X10^3/uL (150-400); Red Blood Cell Count 2.58 X10^6/uL (4.0-5.2); White Blood Cell Count 10.2 X10^3/uL (4.5-11.0)
--- NOTE | 2022-06-19 08:16 | PM.PNPO.1 ---
Subjective Subjective Date Patient Seen: 06/19/22 Time Patient Seen: 09:28 Interval history: Patient is complaining of [id number] right leg pain. She denies any dizziness or lightheadedness. She is not worked with physical therapy yet. She is planning to discharge with her daughter in [place]. Exam Vital Signs (past 8 hours): - 06/19/22 00:50 06/19/22 03:27 06/19/22 07:44 Temperature 97.8 F Pulse Rate 60 72 80 Respiratory Rate 12 14 20 Blood Pressure 119/42 L 114/54 L Pulse Oximetry 98 96 97 Oxygen Flow Rate 0 0 0 Oxygen Delivery Method Nasal Cannula Oxygen Flow Rate 0 Narrative Exam Narrative: Pleasant 86-year-old female, resting comfortably in bed, eating breakfast, no acute distress. Right hip dressings are clean, dry, intact, there is no surrounding erythema, induration, or mandi pus. Bilateral lower extremity: Motor functions are grossly intact, sensation is grossly intact to light touch, calves are soft and nontender palpation. Objective Labs Result Diagrams: 06/19/22 05:34 06/19/22 05:34 Labs: Laboratory Results - last 24 hr 06/18/22 06/18/22 06/18/22 13:26 14:10 14:14 WBC 13.3 H RBC 3.67 L Hgb 10.9 L Hct 33.0 L MCV 90.1 MCH 29.7 MCHC 33.0 RDW 19.1 H Plt Count 196 Neut % (Auto) 92.4 H Lymph % (Auto) 4.7 L [place] % (Auto) 2.7 L Eos % (Auto) 0.1 L Baso % (Auto) 0.1 Neut # (Auto) 83209 H Lymph # (Auto) 600 L [place] # (Auto) 400 Eos # (Auto) 0 Baso # (Auto) 0 PT INR Sodium Potassium Chloride Carbon Dioxide BUN Creatinine Estimated GFR BUN/Creatinine Ratio Glucose Calcium Magnesium Total Bilirubin AST ALT Alkaline Phosphatase Total Protein Albumin Globulin Albumin/Globulin Ratio Urine Color Yellow Urine Appearance Clear Urine pH 5.0 Ur Specific [place] 1.025 Urine Protein Negative Urine Glucose (UA) Negative Urine Ketones Negative Urine Occult Blood Trace-intact Urine Nitrate Negative Urine Bilirubin Negative Urine Urobilinogen 0.2 Ur Leukocyte Esterase Negative Urine RBC 1-5/hpf Urine WBC None seen Ur Squamous Epith Cells None seen Urine Bacteria None seen Ur Culture Indicated? Cult not indicated SARS-CoV-2 (PCR) Negative Influenza A (RT-PCR) Flu a negative Influenza B (RT-PCR) Flu b negative RSV (PCR) Negative 06/18/22 06/18/22 06/18/22 14:14 14:14 14:14 WBC RBC Hgb Hct MCV MCH MCHC RDW Plt Count Neut % (Auto) Lymph % (Auto) [place] % (Auto) Eos % (Auto) Baso % (Auto) Neut # (Auto) Lymph # (Auto) [place] # (Auto) Eos # (Auto) Baso # (Auto) PT 11.7 INR 1.0 Sodium 139 Potassium 3.9 Chloride 105 Carbon Dioxide 27 BUN 23 H Creatinine 0.61 Estimated GFR > 60 BUN/Creatinine Ratio 37.7 H Glucose 145 H Calcium 10.2 Magnesium 1.8 Total Bilirubin 0.3 AST 34 ALT 26 Alkaline Phosphatase 81 Total Protein 7.3 Albumin 4.2 Globulin 3.1 Albumin/Globulin Ratio 1.4 Urine Color Urine Appearance Urine pH Ur Specific [place] Urine Protein Urine Glucose (UA) Urine Ketones Urine Occult Blood Urine Nitrate Urine Bilirubin Urine Urobilinogen Ur Leukocyte Esterase Urine RBC Urine WBC Ur Squamous Epith Cells Urine Bacteria Ur Culture Indicated? SARS-CoV-2 (PCR) Influenza A (RT-PCR) Influenza B (RT-PCR) RSV (PCR) 06/18/22 06/19/22 06/19/22 22:07 05:34 05:34 WBC 10.2 RBC 2.58 L Hgb 9.1 L 7.8 L Hct 26.8 L 23.5 L MCV 91.2 MCH 30.1 MCHC 32.9 RDW 19.0 H Plt Count 163 Neut % (Auto) 80.9 H Lymph % (Auto) 10.8 L [place] % (Auto) 8.1 Eos % (Auto) 0.1 L Baso % (Auto) 0.1 Neut # (Auto) 8300 H Lymph # (Auto) 1100 [place] # (Auto) 800 Eos # (Auto) 0 Baso # (Auto) 0 PT INR Sodium 135 L Potassium 4.2 Chloride 104 Carbon Dioxide 26 BUN 19 H Creatinine 0.62 Estimated GFR > 60 BUN/Creatinine Ratio 30.6 H Glucose 130 H Calcium 8.6 Magnesium Total Bilirubin AST ALT Alkaline Phosphatase Total Protein Albumin Globulin Albumin/Globulin Ratio Urine Color Urine Appearance Urine pH Ur Specific [place] Urine Protein Urine Glucose (UA) Urine Ketones Urine Occult Blood Urine Nitrate Urine Bilirubin Urine Urobilinogen Ur Leukocyte Esterase Urine RBC Urine WBC Ur Squamous Epith Cells Urine Bacteria Ur Culture Indicated? SARS-CoV-2 (PCR) Influenza A (RT-PCR) Influenza B (RT-PCR) RSV (PCR) [facility] Social History household members: family Smoking Status: Never smoker alcohol intake: current Assessment & Plan Post-op Postoperative Procedures: Procedures Operation Date: 06/18/22 17:30 Actual Procedure Side Surgeon p Intramedullary Nailing Femur Right Ajay Mann MD Postoperative day: 1 Postoperative status: doing well Postoperative status narrative: -stable status post right hip IM nailing for right intertrochanteric femur fracture -postoperative hemorrhagic anemia, asymptomatic Postoperative plan narrative: -mobilize with physical therapy. Weightbearing as tolerated with crutches or walker for 4 weeks. After 4 weeks it is okay to ambulate without assistance if stable and strong enough. -DVT prophylaxis for 4 weeks (default aspirin 81 mg b.i.d., is unable to take aspirin, and then Lovenox, 40 mg subcutaneous daily). -continue with multimodal pain management, encourage p.o. medications -Okay to change dressings to clean dry dressings after 3 days. Okay for dressings to come off completely at 7 days. Okay for warm soap and water to run over the incision and a shower or sponge bath, however no soaking the wound. -continue to monitor postoperative hemorrhagic anemia, current hemoglobin is 7.8, down from 10.9 yesterday. The patient is currently asymptomatic. Consider possible transfusion if she becomes symptomatic, per hospitalist recommendation. -patient is planning on discharging with her daughter in [place] -Follow-up in 2 weeks with a PA for staple removal, and follow-up in [address] Mann with x-rays on arrival Quality VTE Deep Vein Thrombosis/Pulmonary Embolism Present on Admission: No
--- NOTE | 2022-06-19 08:40 | PM.PN.1 ---
Subjective Subjective Date Patient Seen: 06/19/22 Interval history: Patient underwent right femur fracture repair last night. Pain is currently controlled. Exam Vital Signs (past 8 hours): - 06/19/22 00:50 06/19/22 03:27 06/19/22 07:44 Temperature 97.8 F Pulse Rate 60 72 80 Respiratory Rate 12 14 20 Blood Pressure 119/42 L 114/54 L Pulse Oximetry 98 96 97 Oxygen Flow Rate 0 0 0 Oxygen Delivery Method Nasal Cannula Oxygen Flow Rate 0 Narrative Exam Narrative: GEN: no acute distress, elderly woman who appears younger than stated age HEENT: moist mucous membranes, PERRL NECK: trachea midline, no JVD CV: regular rate and rhythm, no murmurs PULM: clear bilaterally ABD: soft, nontender, nondistended, no organomegaly EXT: s/p right femur repair with bandage in place NEURO: awake, alert, oriented, no focal deficits Objective Labs Result Diagrams: 06/19/22 05:34 06/19/22 05:34 Labs: Laboratory Results - last 24 hr 06/18/22 06/18/22 06/18/22 13:26 14:10 14:14 WBC 13.3 H RBC 3.67 L Hgb 10.9 L Hct 33.0 L MCV 90.1 MCH 29.7 MCHC 33.0 RDW 19.1 H Plt Count 196 Neut % (Auto) 92.4 H Lymph % (Auto) 4.7 L [place] % (Auto) 2.7 L Eos % (Auto) 0.1 L Baso % (Auto) 0.1 Neut # (Auto) 90050 H Lymph # (Auto) 600 L [place] # (Auto) 400 Eos # (Auto) 0 Baso # (Auto) 0 PT INR Sodium Potassium Chloride Carbon Dioxide BUN Creatinine Estimated GFR BUN/Creatinine Ratio Glucose Calcium Magnesium Total Bilirubin AST ALT Alkaline Phosphatase Total Protein Albumin Globulin Albumin/Globulin Ratio Urine Color Yellow Urine Appearance Clear Urine pH 5.0 Ur Specific [place] 1.025 Urine Protein Negative Urine Glucose (UA) Negative Urine Ketones Negative Urine Occult Blood Trace-intact Urine Nitrate Negative Urine Bilirubin Negative Urine Urobilinogen 0.2 Ur Leukocyte Esterase Negative Urine RBC 1-5/hpf Urine WBC None seen Ur Squamous Epith Cells None seen Urine Bacteria None seen Ur Culture Indicated? Cult not indicated SARS-CoV-2 (PCR) Negative Influenza A (RT-PCR) Flu a negative Influenza B (RT-PCR) Flu b negative RSV (PCR) Negative 06/18/22 06/18/22 06/18/22 14:14 14:14 14:14 WBC RBC Hgb Hct MCV MCH MCHC RDW Plt Count Neut % (Auto) Lymph % (Auto) [place] % (Auto) Eos % (Auto) Baso % (Auto) Neut # (Auto) Lymph # (Auto) [place] # (Auto) Eos # (Auto) Baso # (Auto) PT 11.7 INR 1.0 Sodium 139 Potassium 3.9 Chloride 105 Carbon Dioxide 27 BUN 23 H Creatinine 0.61 Estimated GFR > 60 BUN/Creatinine Ratio 37.7 H Glucose 145 H Calcium 10.2 Magnesium 1.8 Total Bilirubin 0.3 AST 34 ALT 26 Alkaline Phosphatase 81 Total Protein 7.3 Albumin 4.2 Globulin 3.1 Albumin/Globulin Ratio 1.4 Urine Color Urine Appearance Urine pH Ur Specific [place] Urine Protein Urine Glucose (UA) Urine Ketones Urine Occult Blood Urine Nitrate Urine Bilirubin Urine Urobilinogen Ur Leukocyte Esterase Urine RBC Urine WBC Ur Squamous Epith Cells Urine Bacteria Ur Culture Indicated? SARS-CoV-2 (PCR) Influenza A (RT-PCR) Influenza B (RT-PCR) RSV (PCR) 06/18/22 06/19/22 06/19/22 22:07 05:34 05:34 WBC 10.2 RBC 2.58 L Hgb 9.1 L 7.8 L Hct 26.8 L 23.5 L MCV 91.2 MCH 30.1 MCHC 32.9 RDW 19.0 H Plt Count 163 Neut % (Auto) 80.9 H Lymph % (Auto) 10.8 L [place] % (Auto) 8.1 Eos % (Auto) 0.1 L Baso % (Auto) 0.1 Neut # (Auto) 8300 H Lymph # (Auto) 1100 [place] # (Auto) 800 Eos # (Auto) 0 Baso # (Auto) 0 PT INR Sodium 135 L Potassium 4.2 Chloride 104 Carbon Dioxide 26 BUN 19 H Creatinine 0.62 Estimated GFR > 60 BUN/Creatinine Ratio 30.6 H Glucose 130 H Calcium 8.6 Magnesium Total Bilirubin AST ALT Alkaline Phosphatase Total Protein Albumin Globulin Albumin/Globulin Ratio Urine Color Urine Appearance Urine pH Ur Specific [place] Urine Protein Urine Glucose (UA) Urine Ketones Urine Occult Blood Urine Nitrate Urine Bilirubin Urine Urobilinogen Ur Leukocyte Esterase Urine RBC Urine WBC Ur Squamous Epith Cells Urine Bacteria Ur Culture Indicated? SARS-CoV-2 (PCR) Influenza A (RT-PCR) Influenza B (RT-PCR) RSV (PCR) [facility] Social History household members: none Smoking Status: Never smoker alcohol intake: current Assessment & Plan Assessment & Plan narrative: # right femur fracture 2/ GLF s/p ORIF -sustained after losing balance accidentally at home and falling on right side -R hip CT with acute comminuted and displaced fracture involving proximal right femoral shaft with extension to involve lesser trochanter -Dr. Mann, ortho consulting and took for repair on 06/19 -pain control with oxycodone as needed and Dilaudid as needed -laxatives as needed to prevent constipation -PT/OT eval rec SNF -patient should have outpatient DEXA scan to screen for osteoporosis # mild leukocytosis, resolved -likely stress related, low clinical suspicion for infection -UA negative # hypertension, chronic -continue home olmesartan # depression -continue home sertraline Code status is DNR. COVID negative. DVT prophylaxis with SCDs then Lovenox following surgery. Proxy is her son Greg. I have reviewed home meds and used all available resources to reconcile the home meds. Dispo: PT rec SNF. Awaiting placement. Time Spent With Patient Critical Care time: I spent a total of [] minutes of critical care time on this patient's care today; this time is exclusive of procedural time. Quality VTE Deep Vein Thrombosis/Pulmonary Embolism Present on Admission: No
[2022-06-19] MEDS: SERTRALINE 50 MG TABLET 25 MG PO (09:31)
--- NOTE | 2022-06-19 10:12 | PT.IIE ---
Current Diagnoses Displaced comminuted fracture of shaft of right femur, initial encounter for closed fracture (06/18/22) Surgery Performed Operation Date: 06/18/22 17:30 Actual Procedures p Intramedullary Nailing Femur(Right) - Ajay Mann MD Physical Therapy Inpatient Evaluation/Re-Eval M1 PT/OT-IP Prior Functional Status Start: 06/19/22 14:39 Freq: NEEDED Status: Active Protocol: Document 06/19/22 10:12 DLM (Rec: 06/19/22 15:04 DL [id number]) Medical Review Prior Functional Status Medical History Reviewed Yes Diet/Fluid Consistency Regular Communication glasses all the time, mild hard of hearing Mobility and Gait Independent without a device Activities of Daily Living and IADL's Independent, drives 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 1+1 step to enter back door, 4 steep steps at front she does not usually use Home Environment High Toilet,Walk in Shower Home Equipment Shower Seat with Backrest,Grab Bars In Shower Additional Social History Comment she reports her chair in the shower is a plastic lawn type chair she used to have a FWW but loaned it out to friend, can borrow one from [employer] as needed M2 PT-IP Current Condition Start: 06/19/22 14:39 Freq: NEEDED Status: Active Protocol: Document 06/19/22 10:12 DLM (Rec: 06/19/22 15:04 [facility] [id number]) Physical Therapy Current Condition Current Condition Evaluation Date 06/19/22 Treatment Diagnosis Right femur fx s/p ORIF, impaired gait and mobility Onset Date 06/18/22 M3 PT-IP Subjective Start: 06/19/22 14:39 Freq: NEEDED Status: Active Protocol: Document 06/19/22 10:12 DLM (Rec: 06/19/22 15:04 DL [id number]) Subjective Physical Therapy Visit Type Type Initial Evaluation Visit Start Time 09:30 Visit Stop Time 10:12 Total Visit Minutes 42 Number of INCIDENT COMMANDER Visits 0 Physical Therapy Visit Comments Patient Comments Her Daughter wants her to go stay somewhere closer to [place] to be closer to family Patient Goals get stronger Therapy Pain Assessment Pain When Pain Assessed During Mobility Pain Present Pain Present Pain Reported Location Right Hip Intensity 5 Scale Used Numeric (0 - 10) Description Aching,Tender,With Movement Pain Behaviors Facial Grimacing,Guarding, Wincing Pain Management Techniques Re-positioning,Timing of Activity with Medications M4 PT-IP Mobility and Gait Start: 06/19/22 14:39 Freq: NEEDED Status: Active Protocol: Document 06/19/22 10:12 DL (Rec: 06/19/22 15:04 [facility] [id number]) PT-Bed Mobility Assessment Rolling Type of Rolling Roll to Right Level of Assist Contact Guard Assistance, Minimal Assistance Supine to Sit Supine to Sit Minimal Assistance,Bedrails Sit to Supine Sit to Supine Moderate Assistance,Bedrails Scooting Scooting to Edge of Bed Minimal Assistance,Moderate Assistance PT-Transfer Assessment Equipment Transfer Assistive Device Gait Belt,Front Wheeled Walker Comments Mobility Comments Pt attempted to stand 3 times but was not able to achieve a standing position. Pt developed urgent need to have BM with fear it would be diarrhea so she returned to supine and was placed on bed mojica. Pt able to sit on edge of bed with SBA. She was not able to progress to transfers this visit. Gait Assessment Comments Gait Comments unable to progress to standing or gait this visit Stair Climbing Assessment Comments Stair Climbing Comments unable to assess PT-Balance Assessment Sitting Balance and Reactions Static Sitting Balance Ability Good Dynamic Sitting Balance Ability Fair Comments Other Balance Tests/Deviations/Treatment sitting on edge of bed she : tends to lean to left side with less weight on right hip area, c/o pain right hip/thigh area M5 PT-IP Objective Assessments Start: 06/19/22 14:39 Freq: NEEDED Status: Active Protocol: Document 06/19/22 10:12 DL (Rec: 06/19/22 15:04 [facility] [id number]) Orientation Orientation/Cognition Level of Alertness Alert Orientation Name,Age,Birthday,Month,Date, Year,Day of Week,Place, Situation Language Function Ability Hard of Hearing Safety Awareness Decreased Safety Awareness Memory Description No Deficits Noted Comments she can be tangential and disorganized in conversation, she is pleasant and cooperative, she has limited awareness of her current limitations at this time Gross Range of Motion Upper Extremity ROM Assessment Within Functional Limits Lower Extremity ROM Assessment Right Impaired Impairments pain moving right hip area, functional for sitting, limited hip flexion in supine (about 45 degrees) Strength Upper Extremity Strength Assessment Within Functional Limits Lower Extremity Strength Assessment Right Impaired Hip needs assist to move right LE in bed with pain Knee seated knee ext 2+/5 with pain Ankle DF 4+/5 Comments Strength Comments she reports she has hx of left hip area fracture that healed well, no details in her medical chart Coordination Assessment Gross Coordination Gross Coordination WNL Sensation Assessment Sensation Gross Sensation WNL Muscle Tone Muscle Tone WNL Yes Other Assessments Other Other Assessments mild decrease in motor coordination globally with difficulty coordinating scooting and compensatory movement patterns M6 PT-IP Treatment Start: 06/19/22 14:39 Freq: NEEDED Status: Active Protocol: Document 06/19/22 10:12 DLM (Rec: 06/19/22 15:04 DLM [id number]) Physical Therapy Treatment Exercises Exercises Ankle Pumps Education Education Provided Weight Bearing Status,Post-Op Packet,Safety M7 PT-IP Assessment and Plan Start: 06/19/22 14:39 Freq: NEEDED Status: Active Protocol: Document 06/19/22 10:12 DLM (Rec: 06/19/22 15:04 DLM [id number]) PT Summary Assessment and Plan Potential Rehabilitation Potential Good Status of Condition at Evaluation Evolving Summary Impairments Pain,ROM,Strength,Balance,Bed Mobility,Transfers,Gait, Activity Tolerance Assessment Summary I[place] is alert and resting in bed. She fell trying to get into her car suffering right femur fracture. She underwent ORIF 06/18/22. This visit she was able to sit up on edge of bed. She was not able to progress to standing nor transfers this visit. She shows good effort with therapy . Patient is not safe to discharge home alone and will needs SNF rehab at discharge. Since she is not able to sit up in a chair at this time will plan for a BLS transfer. Will continue to work towards improved sitting tolerance with the goal of transport to SNF via wheelchair. Will continue to assess as she progresses in therapy. Goals Bed Mobility Goal Independent Transfer Goal Independent,Front Wheeled Walker Gait Goal Independent,Front Wheel Walker Gait Distance 50 feet Other Goals Up and down one step with FWW and CG/SBA. Days to Meet Goals 10 Frequency of Treatment Frequency Of Treatment Twice a Day Treatment Plan Physical Therapy Treatment Plan Bed Mobility Training,Transfer Training,Gait Training, Therapeutic Exercise,Balance Retraining,Post Op Education, Discharge Planning,Hot or Cold Pack,Neuromuscular Re-ed Weight Bearing Status Weight Bearing Status Weight Bear as Tolerated Allowed Weight Bearing Amount (enter % right LE s/p ORIF 06/18/22 or #) (%) Recommendations To Nursing Amount of Assist Needed 2 Person Assist Discharge Recommendations PT Discharge Recommendations SNF Rehab Other Discharge Recommendations limited sitting tolerance at this time and unable to do functional transfer Transportation Needs at Discharge Stretcher/Ambulance
[2022-06-19] MEDS: OXYCODONE IR 5 MG TABLET PO ×3 (11:41→23:35)
--- NOTE | 2022-06-19 13:40 | CM.DANOTE ---
Addendum entered by Nona Ann R.N. 06/19/22 15:56: DCDarlene Cont: Spoke to Bettina at facility and she states that they can accept the patient on Wednesday. Bettina requesting to see weekend therapy notes on Wednesday when back in the office but otherwise, able to accept. ISABELLEP spoke about transport and Bettina states her and the daughter have talked about this and family is going to figure out transport along with PT/OT recommendations over the weekend. They are aware that it could be out of pocket cost. DCP to continue following pt case. DCP to contact daughter and update her tomorrow. Nona Ann RN/MAIDA Original Note: DCP Assessment: Payor confirmed: Medicare and commercial insurance PCP confirmed: MD Elham Pt is a 86 y.o. F who presented to the ER following a fall after attempting to open her car door. It was found that pt has a femoral fracture. Pt brought up to the unit for further evaluation and management of diagnosis. DCP met with pt this morning to discuss needs. Pt laying in bed. DCP introduced herself and role. Pt is normally independent at baseline and lives alone in [place]. Pt drives POV and owns a walker that she sometimes uses. Pt states that her daughter, Racheal, lives in [place] and has been attempting to get pt to move down closer to her. Pt states that Racheal has been working on discharge plan since last night and that DCP should give her a call to help coordinate. DCP was provided Racheal's phone number. White board updated and instructed to call. Pt thankful for discussion. DCP contacted Racheal to discuss discharge plan. Racheal states that she has been in contact with Bettina, administrative support coordinator, at a facility called [facility] in [place], [place]. Racheal wants to get her mother closer to her so that she can take care of her easier. Racheal requesting DCP contact Bettina to help with coordination of care. DCP contacted Bettina at [facility] and she is requesting clinicals to determine if they can accept the pt. Bettina states that the earliest they could accept the pt would be Wednesday as they do not do admissions on the weekend. DCP to fax clinicals today. Once determination is made, transportation will be arranged. P: Pt is needing rehab. DCP to help with coordination of care to get pt to rehab closer to her family. Once medically cleared, pt to discharge to SNF. DCP to continue to follow. Nona Ann RN/ISABELLEP Discharge Planning/Care Management CM Discharge Assessment Start: 06/19/22 13:38 Freq: Status: Active Protocol: Document 06/19/22 13:38 AJ (Rec: 06/19/22 13:39 AJ [id number]) Discharge Planning Assessment Assigned Senior Business Architect Nona Ann RN/ISABELLEP Advance Directives? No History Provided By Patient,Medical Record Prior Living Arrangements House Household Members none Type of transporation used prior to Drives own vehicle admit Independent with ADL's Yes Is patient alert and oriented? Yes Caregiver for Another No DME Already Rented / Owned FWW / Walker Patient/Family Preference Alf Facility Discharge Plan Alf Facility Referrals Initiated Alf Whiteboard Updated in Patient Room with Yes name and ext. # of Senior Business Architect Comment Instructed to call Review Status In Process Please Provide Date Initial DC 06/19/22 Assessment Was Performed Next Review Type Continued Stay Review
--- NOTE | 2022-06-19 14:35 | PT.IPTN ---
Current Diagnoses Displaced comminuted fracture of shaft of right femur, initial encounter for closed fracture (06/18/22) Surgery Performed Operation Date: 06/18/22 17:30 Actual Procedures p Intramedullary Nailing Femur(Right) - Ajay Mann MD Physical Therapy Treatment Note M2 PT-IP Current Condition Start: 06/19/22 14:39 Freq: NEEDED Status: Active Protocol: Document 06/19/22 10:12 DLM (Rec: 06/19/22 15:04 DLM [id number]) Physical Therapy Current Condition Current Condition Evaluation Date 06/19/22 Treatment Diagnosis Right femur fx s/p ORIF, impaired gait and mobility Onset Date 06/18/22 M3 PT-IP Subjective Start: 06/19/22 14:39 Freq: NEEDED Status: Active Protocol: Document 06/19/22 14:35 DLM (Rec: 06/19/22 15:16 DL [id number]) Subjective Physical Therapy Visit Type Type Treatment Note Visit Start Time 14:00 Visit Stop Time 14:35 Total Visit Minutes 35 Notes co-treated with OT for patient safety Number of NUCLEAR MEDICAL TECH Visits 0 Physical Therapy Visit Comments Patient Comments She reports her Daughter has found a facility for her near [employer] [employer]. Patient Goals get stronger Therapy Pain Assessment Pain When Pain Assessed During Mobility Pain Present Pain Present Pain Reported Location Right Hip Intensity 6 Scale Used Numeric (0 - 10) Description Aching,Tender,With Movement Pain Behaviors Guarding,Wincing Pain Management Techniques Apply Cold,Re-positioning, Timing of Activity with Medications M4 PT-IP Mobility and Gait Start: 06/19/22 14:39 Freq: NEEDED Status: Active Protocol: Document 06/19/22 14:35 DLM (Rec: 06/19/22 15:16 DL [id number]) PT-Bed Mobility Assessment Supine to Sit Supine to Sit Minimal Assistance,Head of Bed Elevated Sit to Supine Sit to Supine Moderate Assistance,Bedrails Scooting Scooting to Edge of Bed Minimal Assistance Scooting Up and Down in Bed Dependent PT-Transfer Assessment Sit to and From Stand Sit to and from Stand Minimal Assistance,2 Person Assistance,Use of Upper Extremities Equipment Transfer Assistive Device Gait Belt,Front Wheeled Walker Comments Mobility Comments Pt was able stand at edge of bed x 2 trials but each a very short duration. She c/o pain in right LE with weight bearing. She was not able to progress to transfers this visit. Pt sat on edge of bed for ADL's and balance training . Gait Assessment Comments Gait Comments she was not able to progress to gait this visit Stair Climbing Assessment Comments Stair Climbing Comments unable PT-Balance Assessment Sitting Balance and Reactions Static Sitting Balance Ability Good Dynamic Sitting Balance Ability Fair Standing Balance and Reactions Static Standing Balance Ability Fair Dynamic Standing Balance Ability Poor Device Used fWW Comments Other Balance Tests/Deviations/Treatment sitting edge of bed she tends : to lean to left side with c/o pain right LE M5 PT-IP Objective Assessments Start: 06/19/22 14:39 Freq: NEEDED Status: Active Protocol: Document 06/19/22 10:12 DLM (Rec: 06/19/22 15:04 DLM [id number]) Orientation Orientation/Cognition Level of Alertness Alert Orientation Name,Age,Birthday,Month,Date, Year,Day of Week,Place, Situation Language Function Ability Hard of Hearing Safety Awareness Decreased Safety Awareness Memory Description No Deficits Noted Comments she can be tangential and disorganized in conversation, she is pleasant and cooperative, she has limited awareness of her current limitations at this time Gross Range of Motion Upper Extremity ROM Assessment Within Functional Limits Lower Extremity ROM Assessment Right Impaired Impairments pain moving right hip area, functional for sitting, limited hip flexion in supine (about 45 degrees) Strength Upper Extremity Strength Assessment Within Functional Limits Lower Extremity Strength Assessment Right Impaired Hip needs assist to move right LE in bed with pain Knee seated knee ext 2+/5 with pain Ankle DF 4+/5 Comments Strength Comments she reports she has hx of left hip area fracture that healed well, no details in her medical chart Coordination Assessment Gross Coordination Gross Coordination WNL Sensation Assessment Sensation Gross Sensation WNL Muscle Tone Muscle Tone WNL Yes Other Assessments Other Other Assessments mild decrease in motor coordination globally with difficulty coordinating scooting and compensatory movement patterns M6 PT-IP Treatment Start: 06/19/22 14:39 Freq: NEEDED Status: Active Protocol: Document 06/19/22 14:35 DLM (Rec: 06/19/22 15:16 DLM [id number]) Physical Therapy Treatment Exercises Exercises Ankle Pumps,Seated Knee Flexion/Extension Education Education Provided Safety M7 PT-IP Assessment and Plan Start: 06/19/22 14:39 Freq: NEEDED Status: Active Protocol: Document 06/19/22 14:35 DLM (Rec: 06/19/22 15:16 DLM [id number]) PT Summary Assessment and Plan Summary Impairments Pain,ROM,Strength,Balance,Bed Mobility,Transfers,Gait, Activity Tolerance Progress Towards Goals Slow Progress due to Activity Tolerance Assessment Summary Christian is showing slow but good progress this visit. She was able to sit on edge of bed and stand with two person assist and use of the FWW. She was not able to progress to transfers nor gait at this time. Due to her limited sitting tolerance and the plan to go to a SNF in [place] continue to recommend BLS for transport. If she can improve her sitting tolerance then she may be able to transport by wheelchair at discharge. Will continue to assess as she progresses with therapy. She is not safe to discharge home alone and will needs SNF rehab to assist with her functional recovery. Goals Bed Mobility Goal Independent Transfer Goal Independent,Front Wheeled Walker Gait Goal Independent,Front Wheel Walker Gait Distance 50 feet Other Goals Up and down one step with FWW and CG/SBA. Days to Meet Goals 10 Frequency of Treatment Frequency Of Treatment Twice a Day Treatment Plan Physical Therapy Treatment Plan Bed Mobility Training,Transfer Training,Gait Training, Therapeutic Exercise,Balance Retraining,Post Op Education, Discharge Planning,Hot or Cold Pack,Neuromuscular Re-ed Weight Bearing Status Weight Bearing Status Weight Bear as Tolerated Allowed Weight Bearing Amount (enter % right LE s/p ORIF 06/18/22 or #) (%) Recommendations To Nursing Amount of Assist Needed 2 Person Assist Discharge Recommendations PT Discharge Recommendations SNF Rehab Other Discharge Recommendations limited sitting tolerance at this time and unable to do functional transfer Transportation Needs at Discharge Stretcher/Ambulance
--- NOTE | 2022-06-19 14:38 | OT.IP.EVAL ---
Current Diagnoses Displaced comminuted fracture of shaft of right femur, initial encounter for closed fracture (06/18/22) Surgery Performed Operation Date: 06/18/22 17:30 Actual Procedures p Intramedullary Nailing Femur(Right) - Ajay Mann MD Occupational Therapy Inpatient Evaluation/Re-Eval M1 PT/OT-IP Prior Functional Status Start: 06/19/22 14:39 Freq: NEEDED Status: Active Protocol: Document 06/19/22 14:41 [facility] (Rec: 06/19/22 15:04 [facility] [id number]) Medical Review Prior Functional Status Communication Independent Mobility and Gait Pt states does not use a device to walk with. Activities of Daily Living and IADL's Pt states completely independent with all needs prior to her fall. Social History Household Members none Living Arrangements Mobile home Number of Floors (Floors) One Floor Number of Stairs To Enter/Railing? 4 steep steps from the front and if having to walk to the back 1 step, space, and another step. Home Environment Standard Height Toilet,Walk in Shower Home Equipment Shower Seat with Backrest,Grab Bars In Shower Additional Social History Comment Pt feel while trying to reach out to the door handle of the car and landed backwards on her hip. M2 OT-IP Current Condition Start: 06/19/22 14:40 Freq: Status: Active Protocol: Document 06/19/22 14:41 [facility] (Rec: 06/19/22 15:04 [facility] [id number]) Occupational Therapy Current Condition Current Condition Evaluation Date 06/19/22 Treatment Diagnosis Right intertrochanteric femur fx, s/p ORIF right hip Diagnosis Onset Date 06/18/22 Weight Bearing Status Weight Bearing Status Weight Bear as Tolerated M3 OT- IP Subjective and Pain Start: 06/19/22 14:40 Freq: Status: Active Protocol: Document 06/19/22 14:41 [facility] (Rec: 06/19/22 15:04 [facility] [id number]) OT- Subjective Occupational Therapy Visit Type Type Initial Evaluation Visit Start Time 13:58 Visit Stop Time 14:38 Total Visit Minutes 40 Occupational Therapy Visit Comments Patient Comments Pt agreed to try to get up. Pt also present for the session. Patient/Caregiver Goals To be able to care fore herself again. OT Pain Assessment Pain When Pain Assessed During Mobility Pain Present Pain Present Pain Reported M4 OT- IP ADL's Start: 06/19/22 14:40 Freq: Status: Active Protocol: Document 06/19/22 14:41 [facility] (Rec: 06/19/22 15:04 [facility] [id number]) OT [id number] Comments OT Self-Feeding Comments Not at meal time. OT ADL-Grooming General Evaluation Grooming Ability Independent Areas Needing Assistance Retrieving/Set-up of Grooming Items Comments OT Grooming Comments while seated on the edge of the bed OT ADL-Oral Care General Eval Oral Care Ability Independent Areas of Assistance Retrieving/Set-Up of Items Comments Oral Care Comments While seated on the edge of the bed OT ADL-Dressing General Eval Lower Body Dressing Ability Maximum Assistance Areas Needing Assistance Socks OT ADL-Toileting General Evaluation Toileting Ability Total Assistance Comments OT Toileting Comments Gill in place OT ADL-Bathing Comments OT Bathing Comments Sponge bath more appropriate at this time. M5 OT- IP IADL's Start: 06/19/22 14:40 Freq: Status: Active Protocol: Document 06/19/22 14:41 [facility] (Rec: 06/19/22 15:04 [facility] [id number]) OT-Instrumental Activities of Daily Living Deficits IADL Deficits Identified Deficits Medication Management Medication Management Comments Prior pt states was completely independent with all her needs. Money Management Money Management Comments Prior pt states was completely independent with all her needs. Meal Preparation Meal Preparation Comments Prior pt states was completely independent with all her needs. French Binding Folder French Binding Folder Comments Prior pt states was completely independent with all her needs. Driving Driving Comments Pt states was driving prior. M6 OT- IP Functional Cognition Start: 06/19/22 14:40 Freq: Status: Active Protocol: Document 06/19/22 14:41 [facility] (Rec: 06/19/22 15:04 [facility] [id number]) Cognitive Factors Limiting Selfcare Function Cognitive Ability Level of Alertness Alert Patient Orientation Name,Age,Place,Situation Attention Span Ability Capable of Focused Attention, Capable of Sustained Attention Ability to Follow Commands Able to Follow One Step Commands Cognitive Comments Cognitive Assessment Comments Pt able to follow commands for ADl and mobility needs. Pt able to follow in conversation however is very tangential and tends to skip from topic to topic. OT- Vision and Hearing OT- Hearing Assessment OT- Hearing Assessment WFL OT- Vision Assessment Visual Acuity Glasses All The Time M7 OT- IP Mobility and Balance Start: 06/19/22 14:40 Freq: Status: Active Protocol: Document 06/19/22 14:41 [facility] (Rec: 06/19/22 15:04 [facility] [id number]) OT- Bed Mobility Assessment Supine to Sit Supine to Sit Assist Minimal Assistance Sit to Supine Sit to Supine Assist Moderate Assistance OT-Transfer Assessment Sit to and From Stand Sit to and from Stand Minimal Assistance,2 Person Assistance Comments Mobility Comments LUCIANO x2 to stand to FWW and pt not able to tolerate standing for long. Pt able to stand again a second time but having to sit back down again due to her back pain or hip pain. OT- Gait Assessment Comments Gait Ability Comments Unable to take any steps at this time. OT- Balance Assessment Sitting Balance and Reactions Static Sitting Balance Ability Good Dynamic Sitting Balance Ability Fair Standing Balance and Reactions Static Standing Balance Ability Poor Dynamic Standing Balance Ability Poor M8 OT- IP Objective Assessments Start: 06/19/22 14:40 Freq: Status: Active Protocol: Document 06/19/22 14:41 [facility] (Rec: 06/19/22 15:04 [facility] [id number]) OT Gross Range of Motion Upper Extremity Range of Motion Assessment Within Functional Limits OT Strength Upper Extremity Strength Assessment Within Functional Limits Comments Strength Comments BUE 4/5 OT- Coordination Assessment Comments Coordination Comments Pt has arthritis in her hands and having to use her teeth to open the seal from the toothpaste tube. OT-Muscle Tone Assessment Muscle Tone WNL Yes M9 OT- IP Assessment and Plan Start: 06/19/22 14:40 Freq: Status: Active Protocol: Document 06/19/22 14:41 [facility] (Rec: 06/19/22 15:04 [facility] [id number]) OT Summary Assessment and Plan Potential Rehabilitation Potential Good Analytic Complexity at Evaluation Moderate Summary OT Impairments Pain,Strength,Balance, Functional Mobility,Dressing, Toileting,Bathing,Toilet Transfers,Shower Transfers, Activity Tolerance Progress Towards Goals Slow Progress due to Pain,Slow Progress due to Activity Tolerance Assessment Summary Pt MOD complexity and main barriers are pain and just able to tolerate standing at this time. Pt is open to going to skilled rehab as currently pt lives alone and prior was independent for all ADl and mobility needs. Pt is very cooperative and motivated to get better. Pt's family looking at a skilled rehab facility closer to [place] as if is closer to her family. Goals Grooming Goal Independent Dressing Goal Independent Toileting Goal Independent Bathing Goal Independent Toilet Transfer Goal Independent Shower Transfer Goal Independent Days to Meet Goals 35 Frequency of Treatment Frequency Of Treatment Once a Day Treatment Plan OT Treatment Plan ADL Training,Functional Mobility,Patient/Family Education,Discharge Planning Other Treatment Recommendations and [place] [facility] [place] 2 Treatment Focus with FWW. Discharge Recommendations OT Discharge Recommendations SNF Rehab Transportation Needs at Discharge Stretcher/Ambulance
[2022-06-20] VITALS (11 sets, daily range): BP systolic 105–153; BP diastolic 45–63; PULSE 81–93; RESP 14–20; TEMP 36.4–37.2; O2SAT 93–98
[2022-06-20] MEDS: ACETAMINOPHEN 325 MG TABLET 650 MG PO ×2 (03:23→22:30)
[2022-06-20] MEDS: OXYCODONE IR 5 MG TABLET PO ×3 (03:24→22:30)
[2022-06-20 05:19] LABS: BUN Creatinine Ratio 23.4 (6-22); Blood Urea Nitrogen 18 mg/dL (7-17); Calcium 8.5 mg/dL (8.4-10.2); Carbon Dioxide 28 mmol/L (22-32); Chloride 102 mmol/L (98-107); Estimated Glomerular Filt Rate > 60 mL/min (>60); Glucose 127 mg/dL (80-110); HEMOLYSIS < 15 (0-50); Potassium 3.8 mmol/L (3.4-5.1); Sodium 133 mmol/L (137-145)
[2022-06-20 05:58] LABS: Basophils Absolute Auto 0 /uL (0-100); Basophils Percent Auto 0.1 % (0-2); Eosinophils Absolute Auto 0 /uL (0-450); Eosinophils Percent Auto 0.4 % (2-4); Lymphocytes Absolute Auto 1700 /uL (1100-4500); Lymphocytes Percent Auto 21.5 % (25-40); Mean Corpuscular HGB Conc 33.9 % (30-36); Mean Corpuscular Hemoglobin 30.2 PG (26-34); Mean Corpuscular Volume 89.2 fL (80-100); Monocytes Absolute Auto 800 /uL (0-900); Monocytes Percent Auto 10.7 % (3-14); Neutrophils Absolute Auto 5200 /uL (1500-7000); Neutrophils Percent Auto 67.3 % (50-75); Platelet Count 131 X10^3/uL (150-400); Red Blood Cell Count 2.21 X10^6/uL (4.0-5.2); Red Cell Distribution Width 19.2 % (11.6-14.8); White Blood Cell Count 7.8 X10^3/uL (4.5-11.0)
[2022-06-20 06:09] LABS: Add Manual Diff / Slide Review SLIDE REVIEW; Hematocrit 19.7 % (36-46); Hemoglobin 6.7 g/dL (12.0-16.0)
--- NOTE | 2022-06-20 06:37 | PC.NURSE ---
Patient resting in bed this shift. Did wake up confused at 0100 and accidentally pulled out her IV access, patient pod2 taking po fluids well and po pain meds. Iv was not replaced per patient request. Reoriented well after confusion. Drsgs cdi to rt hip. Pain controlled well with percolone. Patient did have a critical H&H, aware and ordering blood transfusion.
[2022-06-20 06:47] LABS: Anisocytosis 2+; Ovalocytes 1+
--- NOTE | 2022-06-20 09:16 | CM.DPC ---
Addendum entered by Sudha Miller R.N. 06/20/22 14:08: Spoke to patient's daughter, Racheal. Confirmed that patient was accepted at [facility] in [place]. Daughter is ok with transport as long as she can get into the car. Will just need to update her, since she lives in the [facility]. Patient did not work with P.T. today secondary to transfusion. Sent this note to the facility, letting them know that as soon as patient works with P.T, again, will fax this over. Discussed possible discharge on Wednesday with daughter. Original Note: DCP Cont: Notes indicate that Bettina at [facility] in [place], has accepted on Wednesday. She will want updated P.T. notes as well. Left message with daughter, Racheal, to call this [facility] back regarding mode of transport, can be expensive should she need BLS. Will have to consult with P.T. As back up, just to see if there may be any local facilities accepting, called [facility], no beds until Wednesday, messages out to both [facility] and [facility]. At this point, no bed availability until Wednesday. P: DCP to continue to follow. Will fax over P.T. notes to Bettina, and await daughter's response regarding transport. Sudha Miller RN/Pre Coder
--- NOTE | 2022-06-20 09:37 | P.PN_ITS ---
Subjective Subjective Date Patient Seen: 06/20/22 Time Patient Seen: 09:37 Interval history: Lying in bed comfortably, receiving blood transfusion. Will need SNF per PT. Exam Vital Signs (past 8 hours): - 06/20/22 04:01 06/20/22 09:01 06/20/22 09:20 Temperature 99.0 F 97.6 F 97.6 F Pulse Rate 81 85 83 Respiratory Rate 18 14 16 Blood Pressure 131/53 L 115/50 L 105/45 L Pulse Oximetry 95 Oxygen Flow Rate 06/20/22 08:45 Temperature 97.6 F Pulse Rate 85 Respiratory Rate 14 Blood Pressure 115/50 L Pulse Oximetry 97 Oxygen Flow Rate 0 Oxygen Delivery Method Nasal Cannula Oxygen Flow Rate 0 Narrative Exam Narrative: 5/5 DF, PF, EHL on right. Calves soft, compressible, nontender. Sensation to light touch intact throughout leg. Dressings place intraoperatively are CDI. Objective Labs Result Diagrams: 06/20/22 04:55 06/20/22 04:55 Labs: Laboratory Results - last 24 hr 06/20/22 06/20/22 06/20/22 04:55 04:55 06:35 WBC 7.8 RBC 2.21 L Hgb 6.7 L* Hct 19.7 L* MCV 89.2 MCH 30.2 MCHC 33.9 RDW 19.2 H Plt Count 131 L Neut % (Auto) 67.3 Lymph % (Auto) 21.5 L [place] % (Auto) 10.7 Eos % (Auto) 0.4 L Baso % (Auto) 0.1 Neut # (Auto) 5200 Lymph # (Auto) 1700 [place] # (Auto) 800 Eos # (Auto) 0 Baso # (Auto) 0 RBC Morphology See below Anisocytosis 2+ H Ovalocytes 1+ H Sodium 133 L Potassium 3.8 Chloride 102 Carbon Dioxide 28 BUN 18 H Creatinine 0.77 Estimated GFR > 60 BUN/Creatinine Ratio 23.4 H Glucose 127 H Calcium 8.5 Blood Type A Positive Antibody Screen Negative Crossmatch See Detail PFSH Social History household members: none Smoking Status: Never smoker alcohol intake: current Assessment & Plan Post-op Assessment and plan (1) Status post hip surgery: Assessment and Plan narrative: 1) Weightbearing as tolerated with crutches or walker for 4 weeks (through Jul 16, 2022).? After Jul 16 it is okay to ambulate without assistance if stable and strong enough.? 2) DVT prophylaxis for through Jul 16, 2022 with either ASA 81 mg BID or Lovenox 40 gm daily. Spoke to Dr Alvarenga today about holding Lovenox until H/H stable; resume VTE prophylaxis when appropriate per hospitalist service. 3) If needed, can change dressings on June 21.? Dressings can be removed completely on June 25.? Okay for warm soap and water to run over the incisions and a shower or sponge bath, however no soaking the wounds.? 4) Follow-up in 2 weeks with a PA for staple removal, and follow-up in [address] Mann with x-rays on arrival. Postoperative Procedures: Procedures Operation Date: 06/18/22 17:30 Actual Procedure Side Surgeon p Intramedullary Nailing Femur Right Ajay Mann MD Postoperative day: 2 Quality VTE Deep Vein Thrombosis/Pulmonary Embolism Present on Admission: No
[2022-06-20] MEDS: SERTRALINE 50 MG TABLET 25 MG PO (10:30)
--- NOTE | 2022-06-20 12:26 | PT-IP ANOTE ---
Pt with Hgb of 6.7 and Hct of 19.7. checked with nurse and stated that pt will be receiving transfusion. will hold PT at this time pending H&H result post transfusion.
--- NOTE | 2022-06-20 14:39 | PM.PN.1 ---
Subjective Subjective Interval history: 86yo female w/depression and HTN who suffered a mechanical fall at home and sustained a right trochanteric hip fracture. She is now POD #2 from imtramedullary nailing. Patient reports her pain has been somewhat difficult to control. She states she suffered a mechanical fall which led to her injury. She states it has been 2 days since her last bowel movement which has her a bit concerned as she is worried about getting constipated. She denies any lightheadedness, shortness of breath, chest pain. She was noted to be more anemic today and the orthopedic team ordered 2 units of packed red blood cells. Exam Vital Signs (past 8 hours): - 06/19/22 18:00 06/19/22 19:50 Temperature 97.8 F 98.7 F Pulse Rate 84 84 Respiratory Rate 18 18 Blood Pressure 125/54 L 142/50 H Pulse Oximetry 96 94 Oxygen Flow Rate 0 Oxygen Delivery Method Nasal Cannula Oxygen Flow Rate 0 Narrative Exam Narrative: GEN: Very pleasant elderly female, Alert and oriented x 3, NAD HEENT:NC, Face symmetric CHEST: Respiratory excursions symmetric, CTAB CV: RRR, no M/R/G ABD: Soft, NT/ND, BT present in all 4 quadrants, no organomegaly or masses EXTR: warm, well perfused, no C/C/E, right hip dressings are clean/dry/intact SKIN: warm and dry, no rash NEURO: Alert and oriented x 3, nonfocal Objective Labs Result Diagrams: 06/20/22 04:55 06/20/22 04:55 Labs: Laboratory Results - last 24 hr 06/18/22 06/19/22 06/19/22 22:07 05:34 05:34 WBC 10.2 RBC 2.58 L Hgb 9.1 L 7.8 L Hct 26.8 L 23.5 L MCV 91.2 MCH 30.1 MCHC 32.9 RDW 19.0 H Plt Count 163 Neut % (Auto) 80.9 H Lymph % (Auto) 10.8 L [place] % (Auto) 8.1 Eos % (Auto) 0.1 L Baso % (Auto) 0.1 Neut # (Auto) 8300 H Lymph # (Auto) 1100 [place] # (Auto) 800 Eos # (Auto) 0 Baso # (Auto) 0 Sodium 135 L Potassium 4.2 Chloride 104 Carbon Dioxide 26 BUN 19 H Creatinine 0.62 Estimated GFR > 60 BUN/Creatinine Ratio 30.6 H Glucose 130 H Calcium 8.6 PFSH Social History household members: none Smoking Status: Never smoker alcohol intake: current Assessment & Plan Assessment & Plan narrative: 1. POD #2 from R femur intramedullary nailing for trochanteric fx ?Continue working on mobility. PT rec's SNF. Care management working towards placement. 2. Anemia Likely secondary to expected intraoperative losses and acute fracture. Hgb 7.8 yesterday. Down to 6.7 today. Receiving 2 units of packed red blood cells per Orthopedic surgery. 3. HTN Chronic. Continue olmesartan. Blood pressure is moderately hypertensive today. 4. Depression Continue sertraline Resolved issues: Leukocytosis - felt to be a stress reaction Code status DNR Elaine Finn ordered Dispo SNF Time Spent With Patient Critical Care time: I spent a total of [] minutes of critical care time on this patient's care today; this time is exclusive of procedural time. Quality VTE Deep Vein Thrombosis/Pulmonary Embolism Present on Admission: No
--- NOTE | 2022-06-20 17:53 | PC.NURSE ---
Patient denies pain or discomfort after oxycodone given. She tolerated 2u of prbcs well. IV started to L.ac. Dressing to r.hip is cdi. PT will work with patient tomorrow. Her H and H was low and they felt it would be best to wait until levels were higher. Resting comfortably. Eating well at meals.
[2022-06-20] MEDS: SENNOSIDES 8.6 MG TABLET PO (22:31)
[2022-06-21 04:29] VITALS: BP 127/53; PULSE 76; RESP 17; TEMP 36.3; O2SAT 96
[2022-06-21 05:34] LABS: Add Manual Diff / Slide Review NO; Basophils Absolute Auto 0 /uL (0-100); Basophils Percent Auto 0.3 % (0-2); Eosinophils Absolute Auto 100 /uL (0-450); Eosinophils Percent Auto 1.6 % (2-4); Hemoglobin 9.3 g/dL (12.0-16.0); Lymphocytes Absolute Auto 1600 /uL (1100-4500); Lymphocytes Percent Auto 20.3 % (25-40); Mean Corpuscular HGB Conc 34.7 % (30-36); Mean Corpuscular Hemoglobin 29.9 PG (26-34); Mean Corpuscular Volume 86.2 fL (80-100); Monocytes Absolute Auto 800 /uL (0-900); Monocytes Percent Auto 10.1 % (3-14); Neutrophils Absolute Auto 5400 /uL (1500-7000); Neutrophils Percent Auto 67.7 % (50-75); Platelet Count 142 X10^3/uL (150-400); Red Blood Cell Count 3.11 X10^6/uL (4.0-5.2); Red Cell Distribution Width 18.2 % (11.6-14.8); White Blood Cell Count 7.9 X10^3/uL (4.5-11.0)
[2022-06-21 05:44] LABS: BUN Creatinine Ratio 23.5 (6-22); Blood Urea Nitrogen 19 mg/dL (7-17); Carbon Dioxide 27 mmol/L (22-32); Chloride 105 mmol/L (98-107); Estimated Glomerular Filt Rate > 60 mL/min (>60); Glucose 106 mg/dL (80-110); HEMOLYSIS < 15 (0-50); Potassium 3.5 mmol/L (3.4-5.1); Sodium 136 mmol/L (137-145)
--- NOTE | 2022-06-21 05:45 | P.PN_ITS ---
Subjective Subjective Interval history: 86yo female w/depression and HTN who suffered a mechanical fall at home and sustained a right trochanteric hip fracture.? She is now POD #2 from imtramedullary nailing. Patient reports she is having some difficulty with sleep. She has trouble finding a comfortable position overall. She reports she did attempt to use the bedpan but was unsuccessful. She is worried about getting constipated. She does complain of some right knee pain on wonders if she could have injured her knee were twisted it. ? Exam Vital Signs (past 8 hours): - 06/21/22 04:29 Temperature 97.4 F L Pulse Rate 76 Respiratory Rate 17 Blood Pressure 127/53 L Pulse Oximetry 96 Oxygen Delivery Method Nasal Cannula Oxygen Flow Rate 0 Narrative Exam Narrative: GEN:? Very pleasant elderly female, Alert and oriented x 3, NAD HEENT:NC, Face symmetric CHEST: Respiratory excursions symmetric, CTAB CV: RRR, no M/R/G ABD: Soft, NT/ND, BT present in all 4 quadrants, no organomegaly or masses EXTR: warm, well perfused, no C/C/E, right hip dressings are clean/dry/intact SKIN: warm and dry, no rash NEURO: Alert and oriented x 3, nonfocal Musculoskeletal: Mild tenderness with palpation of her right quadriceps muscles, no obvious deformity or effusion to the right knee Objective Labs Result Diagrams: 06/21/22 04:55 06/21/22 04:55 Labs: Laboratory Results - last 24 hr 06/20/22 06/20/22 06/21/22 04:55 06:35 04:55 WBC 7.8 RBC 2.21 L Hgb 6.7 L* Hct 19.7 L* MCV 89.2 MCH 30.2 MCHC 33.9 RDW 19.2 H Plt Count 131 L Neut % (Auto) 67.3 Lymph % (Auto) 21.5 L Mclean % (Auto) 10.7 Eos % (Auto) 0.4 L Baso % (Auto) 0.1 Neut # (Auto) 5200 Lymph # (Auto) 1700 Mclean # (Auto) 800 Eos # (Auto) 0 Baso # (Auto) 0 RBC Morphology See below Anisocytosis 2+ H Ovalocytes 1+ H Sodium 136 L Potassium 3.5 Chloride 105 Carbon Dioxide 27 BUN 19 H Creatinine 0.81 Estimated GFR > 60 BUN/Creatinine Ratio 23.5 H Glucose 106 Calcium 9.0 Blood Type A Positive Antibody Screen Negative Crossmatch See Detail [facility] Social History household members: none Smoking Status: Never smoker alcohol intake: current Assessment & Plan Assessment & Plan narrative: 1.? POD #3 from R femur intramedullary nailing for trochanteric fx ?Continue working on mobility.? PT rec's SNF.? Care management working towards placement. Encouraged her to monitor her knee pain when she worked with therapy next. If it does seem to be persistent, she is instructed to advise her nurse and we can consider further workup if needed. Advised it may very well generalized discomfort from her fall. She has required reassurance regarding her hip and thigh pain as well. 2.? Anemia Likely secondary to expected intraoperative losses and acute fracture.? 6.7 yesterday. 2 units of packed red blood cells were given and hemoglobin improved to 9.3 today. 3.? HTN Chronic.? Continue olmesartan.? Blood pressure is moderately hypertensive today. 4.? Depression Continue sertraline 5. Thrombocytopenia Mild at 131 yesterday. Improved at 142 today. Likely consumptive related to surgery and her injury. 6. Hyponatremia Mild. Low at 133 yesterday. Improved at 136 today. Resolved issues: Leukocytosis - felt to be a stress reaction Code status DNR Aidanfaustino Españarodrick ordered Dispo SNF. She is been accepted to [facility] rehab in [place], [place]. Care management is working on disposition. I will determine after discussing further with physical therapy whether patient can transfer via private vehicle or via BLS ambulance. Anticipate discharge tomorrow. Time Spent With Patient Critical Care time: I spent a total of [] minutes of critical care time on this patient's care today; this time is exclusive of procedural time. Quality VTE Deep Vein Thrombosis/Pulmonary Embolism Present on Admission: No
[2022-06-21 05:50] LABS: Hematocrit 26.8 % (36-46)
[2022-06-21] MEDS: ACETAMINOPHEN 325 MG TABLET 650 MG PO ×2 (06:43→17:31)
[2022-06-21] MEDS: polyethylene glycoL 3350 17 GM POWD.PACK PO (06:43)
[2022-06-21] MEDS: OXYCODONE IR 5 MG TABLET PO ×3 (06:44→21:54)
[2022-06-21 08:00] VITALS: BP 117/57; PULSE 79; RESP 14; TEMP 36; O2SAT 96
[2022-06-21 08:45] VITALS: BP 117/67; PULSE 76
[2022-06-21] MEDS: POTASSIUM CHLORIDE 20 MEQ TAB PO (08:45)
[2022-06-21] MEDS: LOSARTAN 50 MG TABLET 100 MG PO (08:45)
[2022-06-21] MEDS: SENNOSIDES 8.6 MG TABLET PO ×2 (08:45→21:49)
[2022-06-21] MEDS: SERTRALINE 50 MG TABLET 25 MG PO (08:46)
[2022-06-21] MEDS: ENOXAPARIN 40 MG/0.4 ML SYRINGE SUBCUT (08:46)
--- NOTE | 2022-06-21 09:09 | P.PN_ITS ---
Subjective Subjective Date Patient Seen: 06/21/22 Time Patient Seen: 09:09 Interval history: Sitting up in bed, c/o inability to move bowels. 'They are kicking me out tomorrow.' Per CM note, it sounds like pt will likely d/c to a SNF in [place], [place]. Exam Vital Signs (past 8 hours): - 06/21/22 04:29 06/21/22 08:45 Temperature 97.4 F L Pulse Rate 76 76 Respiratory Rate 17 Blood Pressure 127/53 L 117/67 Pulse Oximetry 96 Oxygen Delivery Method Nasal Cannula Oxygen Flow Rate 0 Narrative Exam Narrative: Pain and hesitancy w/ movement of RLE. 5/5 DF, PF, EHL. 4/5 hip flexors, celestine driceps, hamstrings. Dressings placed intraoperatively are CDI. H/H responded appropriately to transfusion yesterday, enoxaparin started this morning. Objective Labs Result Diagrams: 06/21/22 04:55 06/21/22 04:55 Labs: Laboratory Results - last 24 hr 06/20/22 06/21/22 06/21/22 06:35 04:55 04:55 WBC 7.9 RBC 3.11 L Hgb 9.3 L Hct 26.8 L MCV 86.2 D MCH 29.9 MCHC 34.7 RDW 18.2 H Plt Count 142 L Neut % (Auto) 67.7 Lymph % (Auto) 20.3 L Imperial % (Auto) 10.1 Eos % (Auto) 1.6 L Baso % (Auto) 0.3 Neut # (Auto) 5400 Lymph # (Auto) 1600 Imperial # (Auto) 800 Eos # (Auto) 100 Baso # (Auto) 0 Sodium 136 L Potassium 3.5 Chloride 105 Carbon Dioxide 27 BUN 19 H Creatinine 0.81 Estimated GFR > 60 BUN/Creatinine Ratio 23.5 H Glucose 106 Calcium 9.0 Blood Type A Positive Antibody Screen Negative Crossmatch See Detail [facility] Social History household members: none Smoking Status: Never smoker alcohol intake: current Assessment & Plan Post-op Assessment and plan (1) Status post hip surgery: Assessment and Plan narrative: 1) Weightbearing as tolerated with crutches or walker for 4 weeks (through Jul 16, 2022).? After Jul 16 it is okay to ambulate without assistance if stable and strong enough.? 2) DVT prophylaxis for through Jul 16, 2022 with Lovenox 40 mg sq daily.? 3) Dressings can be removed completely on June 25.? Okay for warm soap and water to run over the incisions and a shower or sponge bath, however no soaking the wounds.? 4) Follow-up in 2 weeks with a PA for staple removal, and follow-up in [address] Mann with x-rays on arrival. Given that pt may d/c to [facility], the 2- week wound check and staple removal can be done at the SNF or by a closer provider if more convenient. No soaking incisions or applying any creams, lotions, or ointments to them until completely healed. Postoperative Procedures: Procedures Operation Date: 06/18/22 17:30 Actual Procedure Side Surgeon p Intramedullary Nailing Femur Right Ajay Mann MD Postoperative day: 3 Quality VTE Deep Vein Thrombosis/Pulmonary Embolism Present on Admission: No
--- NOTE | 2022-06-21 11:08 | CM.DPC ---
DCP Cont: Called patient's daughter, Racheal. P.T. and nurse, were concerned about patient going in daughter's private vehicle. Spoke to daughter about ambulance, and expense of driving that far. Daughter indicated, I don't think that my mom can afford it, I really want to pick her up in my car tomorrow. Let nurseElaine know, patient will likely need pain medication before transport. Daughter is planning to leave her home at about 0500 tomorrow, should be here at about 0800. Daughter also indicated that her daughter is a JAVA PROGRAMMER ANALYST at [facility], and knows Bettina in admissions, and can text her about tomorrow's admission. P: DCP to continue to follow. Will plan on discharge to [facility] tomorrow. PASSR already completed. Daughter will arrive here at about 0800 tomorrow. Sudha Miller RN/Plastics Fabricator Or Welder
[2022-06-21 11:52] VITALS: BP 130/58; PULSE 77; RESP 14; TEMP 36.4; O2SAT 94
--- NOTE | 2022-06-21 12:05 | PT.IPTN ---
Current Diagnoses Displaced comminuted fracture of shaft of right femur, initial encounter for closed fracture (06/18/22) Other specified postprocedural states (06/18/22) Surgery Performed Operation Date: 06/18/22 17:30 Actual Procedures p Intramedullary Nailing Femur(Right) - Ajay Mann MD Physical Therapy Treatment Note M2 PT-IP Current Condition Start: 06/19/22 14:39 Freq: NEEDED Status: Active Protocol: Document 06/19/22 10:12 DLM (Rec: 06/19/22 15:04 DLM [id number]) Physical Therapy Current Condition Current Condition Evaluation Date 06/19/22 Treatment Diagnosis Right femur fx s/p ORIF, impaired gait and mobility Onset Date 06/18/22 M3 PT-IP Subjective Start: 06/19/22 14:39 Freq: NEEDED Status: Active Protocol: Document 06/21/22 12:05 AW (Rec: 06/21/22 13:46 AW [id number]) Subjective Physical Therapy Visit Type Type Treatment Note Visit Start Time 11:45 Visit Stop Time 12:05 Total Visit Minutes 20 Number of WAREHOUSE ORDER PULLER Visits 0 Physical Therapy Visit Comments Patient Comments Pt would like to try standing again today Patient Goals get stronger Therapy Pain Assessment Pain When Pain Assessed During Mobility Pain Present Pain Present Denied Pain Location Right Hip Intensity 5 Scale Used Numeric (0 - 10) Description Aching,With Movement Pain Behaviors Guarding,Wincing Pain Management Techniques Apply Cold,Re-positioning, Timing of Activity with Medications M4 PT-IP Mobility and Gait Start: 06/19/22 14:39 Freq: NEEDED Status: Active Protocol: Document 06/21/22 12:05 AW (Rec: 06/21/22 13:46 AW [id number]) PT-Bed Mobility Assessment Supine to Sit Supine to Sit Minimal Assistance,Head of Bed Elevated Sit to Supine Sit to Supine Minimal Assistance,Bedrails Scooting Scooting to Edge of Bed Minimal Assistance Scooting Up and Down in Bed Moderate Assistance PT-Transfer Assessment Sit to and From Stand Sit to and from Stand Moderate Assistance,1 Person Assistance,Use of Upper Extremities Equipment Transfer Assistive Device Gait Belt,Front Wheeled Walker Comments Mobility Comments Pt was able to transition to sitting EOB with min A. She leans heavily away from her right side in sitting and needs assist to get her feet on the floor. She needed mod A to stand with FWW and tolerated standing ~45 seconds before needing to sit. After resting, she stood again mod A but stated her right knee would not support her and needed to sit after ~10 seconds. Pt was assisted back to supine min A and cued to use her LLE and to pull with her arms on the bed rails to reposition. She was left with call light in reach. Gait Assessment Comments Gait Comments Unable to transfer or take any steps at this time. Stair Climbing Assessment Comments Stair Climbing Comments unable PT-Balance Assessment Sitting Balance and Reactions Static Sitting Balance Ability Good Dynamic Sitting Balance Ability Fair Standing Balance and Reactions Static Standing Balance Ability Poor Dynamic Standing Balance Ability Poor Device Used fWW M5 PT-IP Objective Assessments Start: 06/19/22 14:39 Freq: NEEDED Status: Active Protocol: Document 06/19/22 10:12 DLM (Rec: 06/19/22 15:04 DLM [id number]) Orientation Orientation/Cognition Level of Alertness Alert Orientation Name,Age,Birthday,Month,Date, Year,Day of Week,Place, Situation Language Function Ability Hard of Hearing Safety Awareness Decreased Safety Awareness Memory Description No Deficits Noted Comments she can be tangential and disorganized in conversation, she is pleasant and cooperative, she has limited awareness of her current limitations at this time Gross Range of Motion Upper Extremity ROM Assessment Within Functional Limits Lower Extremity ROM Assessment Right Impaired Impairments pain moving right hip area, functional for sitting, limited hip flexion in supine (about 45 degrees) Strength Upper Extremity Strength Assessment Within Functional Limits Lower Extremity Strength Assessment Right Impaired Hip needs assist to move right LE in bed with pain Knee seated knee ext 2+/5 with pain Ankle DF 4+/5 Comments Strength Comments she reports she has hx of left hip area fracture that healed well, no details in her medical chart Coordination Assessment Gross Coordination Gross Coordination WNL Sensation Assessment Sensation Gross Sensation WNL Muscle Tone Muscle Tone WNL Yes Other Assessments Other Other Assessments mild decrease in motor coordination globally with difficulty coordinating scooting and compensatory movement patterns M6 PT-IP Treatment Start: 06/19/22 14:39 Freq: NEEDED Status: Active Protocol: Document 06/21/22 12:05 AW (Rec: 06/21/22 13:46 AW [id number]) Physical Therapy Treatment Exercises Exercises Ankle Pumps,Heel Slides,Seated Knee Flexion/Extension Education Education Provided Weight Bearing Status,Safety M7 PT-IP Assessment and Plan Start: 06/19/22 14:39 Freq: NEEDED Status: Active Protocol: Document 06/21/22 12:05 AW (Rec: 06/21/22 13:46 AW [id number]) PT Summary Assessment and Plan Summary Impairments Pain,ROM,Strength,Balance,Bed Mobility,Transfers,Gait, Activity Tolerance Progress Towards Goals Slow Progress due to Activity Tolerance Assessment Summary Christian continues to show slow progress. She was able to sit on edge of bed and stand with one person assist and FWW. She was not able to progress to transfers nor gait at this time. Due to her limited sitting tolerance and the plan to go to a SNF in [place] continue to recommend BLS for transport. If she can improve her sitting tolerance then she may be able to transport by wheelchair at discharge. Will continue to assess as she progresses with therapy. She is not safe to discharge home alone and will needs SNF rehab to assist with her functional recovery. Goals Bed Mobility Goal Independent Transfer Goal Independent,Front Wheeled Walker Gait Goal Independent,Front Wheel Walker Gait Distance 50 feet Other Goals Up and down one step with FWW and CG/SBA. Days to Meet Goals 10 Frequency of Treatment Frequency Of Treatment Twice a Day Treatment Plan Physical Therapy Treatment Plan Bed Mobility Training,Transfer Training,Gait Training, Therapeutic Exercise,Balance Retraining,Post Op Education, Discharge Planning,Hot or Cold Pack,Neuromuscular Re-ed Weight Bearing Status Weight Bearing Status Weight Bear as Tolerated Recommendations To Nursing Amount of Assist Needed 1 Person Assist,2 Person Assist Discharge Recommendations PT Discharge Recommendations SNF Rehab Other Discharge Recommendations limited sitting tolerance at this time and unable to do functional transfer Transportation Needs at Discharge Stretcher/Ambulance
--- NOTE | 2022-06-21 15:17 | PT.IPTN ---
Current Diagnoses Displaced comminuted fracture of shaft of right femur, initial encounter for closed fracture (06/18/22) Other specified postprocedural states (06/18/22) Surgery Performed Operation Date: 06/18/22 17:30 Actual Procedures p Intramedullary Nailing Femur(Right) - Ajay Mann MD Physical Therapy Treatment Note M2 PT-IP Current Condition Start: 06/19/22 14:39 Freq: NEEDED Status: Active Protocol: Document 06/19/22 10:12 DLM (Rec: 06/19/22 15:04 DLM [id number]) Physical Therapy Current Condition Current Condition Evaluation Date 06/19/22 Treatment Diagnosis Right femur fx s/p ORIF, impaired gait and mobility Onset Date 06/18/22 M3 PT-IP Subjective Start: 06/19/22 14:39 Freq: NEEDED Status: Active Protocol: Document 06/21/22 15:03 LJ (Rec: 06/21/22 15:17 LJ [id number]) Subjective Physical Therapy Visit Type Type Treatment Note Visit Start Time 14:24 Visit Stop Time 14:46 Total Visit Minutes 22 Number of SHOP SERVICE TECHNICIAN Visits 1 Physical Therapy Visit Comments Patient Comments Pt c/o sitting on lumps on the matress. Would like to sit on side of bed for a while Therapy Pain Assessment Pain When Pain Assessed During Mobility Pain Present Pain Present Pain Reported M4 PT-IP Mobility and Gait Start: 06/19/22 14:39 Freq: NEEDED Status: Active Protocol: Document 06/21/22 15:03 LJ (Rec: 06/21/22 15:17 LJ [id number]) PT-Bed Mobility Assessment Rolling Type of Rolling Roll to Left Supine to Sit Supine to Sit Minimal Assistance,Head of Bed Elevated Sit to Supine Sit to Supine Minimal Assistance,Bedrails Scooting Scooting to Edge of Bed Minimal Assistance Scooting Up and Down in Bed Maximum Assistance PT-Transfer Assessment Sit to and From Stand Sit to and from Stand Moderate Assistance,1 Person Assistance,Use of Upper Extremities Equipment Transfer Assistive Device Gait Belt,Front Wheeled Walker Comments Mobility Comments Pt requiring Walter for all bed mobility other than MaxA to scoot to head of bed. Sitting on side of bed pt silll leaning to left. Able to get her feet on the floor SBA. ModA for sit<>stand. Pt unable to weightbear on RLE therefore unable to scoot to chair next to bed. Pt stood ~1 .5 min then sat back on bed. Rested for several minutes toen attempted standing again but unable to stand tall second time. Pt sat back on bed and repositioned in bed Walter -MaxA. Pt given all needs and left in bed with nursing. Gait Assessment Comments Gait Comments Unable to do more than tranfer at this time Stair Climbing Assessment Comments Stair Climbing Comments unable PT-Balance Assessment Sitting Balance and Reactions Static Sitting Balance Ability Good Dynamic Sitting Balance Ability Fair Standing Balance and Reactions Static Standing Balance Ability Poor Dynamic Standing Balance Ability Poor Device Used fWW Comments Other Balance Tests/Deviations/Treatment sitting edge of bed she tends : to lean to left side with c/o pain right LE M5 PT-IP Objective Assessments Start: 06/19/22 14:39 Freq: NEEDED Status: Active Protocol: Document 06/19/22 10:12 DLM (Rec: 06/19/22 15:04 DL [id number]) Orientation Orientation/Cognition Level of Alertness Alert Orientation Name,Age,Birthday,Month,Date, Year,Day of Week,Place, Situation Language Function Ability Hard of Hearing Safety Awareness Decreased Safety Awareness Memory Description No Deficits Noted Comments she can be tangential and disorganized in conversation, she is pleasant and cooperative, she has limited awareness of her current limitations at this time Gross Range of Motion Upper Extremity ROM Assessment Within Functional Limits Lower Extremity ROM Assessment Right Impaired Impairments pain moving right hip area, functional for sitting, limited hip flexion in supine (about 45 degrees) Strength Upper Extremity Strength Assessment Within Functional Limits Lower Extremity Strength Assessment Right Impaired Hip needs assist to move right LE in bed with pain Knee seated knee ext 2+/5 with pain Ankle DF 4+/5 Comments Strength Comments she reports she has hx of left hip area fracture that healed well, no details in her medical chart Coordination Assessment Gross Coordination Gross Coordination WNL Sensation Assessment Sensation Gross Sensation WNL Muscle Tone Muscle Tone WNL Yes Other Assessments Other Other Assessments mild decrease in motor coordination globally with difficulty coordinating scooting and compensatory movement patterns M6 PT-IP Treatment Start: 06/19/22 14:39 Freq: NEEDED Status: Active Protocol: Document 06/21/22 15:03 VINCE (Rec: 06/21/22 15:17 LJ [id number]) Physical Therapy Treatment Exercises Exercises Ankle Pumps,Heel Slides,Seated Knee Flexion/Extension Education Education Provided Weight Bearing Status,Safety M7 PT-IP Assessment and Plan Start: 06/19/22 14:39 Freq: NEEDED Status: Active Protocol: Document 06/21/22 15:03 VINCE (Rec: 06/21/22 15:17 VINCE [id number]) PT Summary Assessment and Plan Summary Impairments Pain,ROM,Strength,Balance,Bed Mobility,Transfers,Gait, Activity Tolerance Progress Towards Goals Slow Progress due to Activity Tolerance Assessment Summary Pt progressed today with transfer ability. Still c/o of pain with all movement. Unable to bear weight on RLE. She will require SNF at this time to recover and improve activity tolernce, strength, and level of independence. Goals Bed Mobility Goal Independent Transfer Goal Independent,Front Wheeled Walker Gait Goal Independent,Front Wheel Walker Gait Distance 50 feet Other Goals Up and down one step with FWW and CG/SBA. Days to Meet Goals 10 Frequency of Treatment Frequency Of Treatment Twice a Day Treatment Plan Physical Therapy Treatment Plan Bed Mobility Training,Transfer Training,Gait Training, Therapeutic Exercise,Balance Retraining,Post Op Education, Discharge Planning,Hot or Cold Pack,Neuromuscular Re-ed Weight Bearing Status Weight Bearing Status Weight Bear as Tolerated Recommendations To Nursing Amount of Assist Needed 2 Person Assist Discharge Recommendations PT Discharge Recommendations SNF Rehab Other Discharge Recommendations limited sitting tolerance at this time and unable to do functional transfer Transportation Needs at Discharge Stretcher/Ambulance
[2022-06-21 18:00] VITALS: BP 118/42; PULSE 84; RESP 14; TEMP 36.6; O2SAT 93
--- NOTE | 2022-06-21 18:26 | PC.NURSE ---
Notified Dr. Alvarenga in person that patient's IV came out. Dr. Alvarenga states, ok to leave out since pt is to go to SNF tomorrow.
[2022-06-22 00:42] VITALS: BP 104/57; PULSE 72; RESP 18; TEMP 36.4; O2SAT 95
[2022-06-22 06:00] VITALS: BP 128/61; PULSE 82; RESP 18; TEMP 36.6; O2SAT 96
[2022-06-22 06:08] LABS: Add Manual Diff / Slide Review NO; Basophils Absolute Auto 0 /uL (0-100); Basophils Percent Auto 0.3 % (0-2); Eosinophils Absolute Auto 100 /uL (0-450); Eosinophils Percent Auto 1.1 % (2-4); Hemoglobin 9.4 g/dL (12.0-16.0); Lymphocytes Absolute Auto 1300 /uL (1100-4500); Mean Corpuscular HGB Conc 33.6 % (30-36); Mean Corpuscular Hemoglobin 29.5 PG (26-34); Mean Corpuscular Volume 87.8 fL (80-100); Monocytes Absolute Auto 600 /uL (0-900); Monocytes Percent Auto 8.9 % (3-14); Neutrophils Absolute Auto 4900 /uL (1500-7000); Neutrophils Percent Auto 70.7 % (50-75); Platelet Count 173 X10^3/uL (150-400); Red Blood Cell Count 3.19 X10^6/uL (4.0-5.2); Red Cell Distribution Width 18.3 % (11.6-14.8)
[2022-06-22 06:14] LABS: BUN Creatinine Ratio 29.9 (6-22); Blood Urea Nitrogen 23 mg/dL (7-17); Calcium 9.2 mg/dL (8.4-10.2); Carbon Dioxide 29 mmol/L (22-32); Chloride 105 mmol/L (98-107); Estimated Glomerular Filt Rate > 60 mL/min (>60); Glucose 103 mg/dL (80-110); HEMOLYSIS < 15 (0-50); Potassium 3.9 mmol/L (3.4-5.1); Sodium 135 mmol/L (137-145)
[2022-06-22] MEDS: ACETAMINOPHEN 325 MG TABLET 650 MG PO ×2 (06:17→11:17)
[2022-06-22] MEDS: OXYCODONE IR 5 MG TABLET PO ×2 (06:17→09:50)
--- NOTE | 2022-06-22 08:33 | CM.DPC ---
Addendum entered by Sudha Miller R.N. 06/22/22 09:06: Bettina Lyons called back from [facility], and confirmed acceptance. They would like patient there before 4:00pm, preferred noon, but let her know that patient is not yet ready, and is about [place] [address]. Updated nurse, Vignesh, gave her the report phone number, and updated hospitalist. Will fax orders as soon as they are completed. Original Note: DCP Cont: [facility]ed [facility] yesterday's physical therapy notes. Left a message this morning with Bettina in admissions, that patient is ready to discharge today. Placed COVID swab order, and updated hospitalist. Daughter, Racheal, is here and in the room. P: DCP working [facility], awaiting call back from the facility. Sudha Miller RN/Wildlife Manager
[2022-06-22 09:08] VITALS: BP 114/50; PULSE 78; RESP 16; TEMP 36.7; O2SAT 100
--- NOTE | 2022-06-22 09:36 | P.DS_ITS ---
History of Present Illness History of Present Illness Date Patient Seen: 06/22/22 Chief complaint: fell backwards, pelvic pain, no thinners Narrative: Christian Villagran is an 86yo F with PMH of depression and HTN who presents with right femur fracture after fall at home. She was reaching for a doorknob and missed the handle, losing her balance then falling on her right side. In the ED found to have a right trochanteric fracture. She has never broken a bone before. Her pain is currently low without movement of her right leg. Dr. Lopez ortho consulted from ED who will take for surgery tomorrow. She denies any CP, SBO, cough, abd pain, NV or diarrhea. Discharge Providers Provider Date of admission: 06/18/22 13:54 Discharge Date: 06/22/22 Consults: 06/18/22 13:23 Consult to Orthopedic Surgery Stat Comment: Consulting Provider: Ajay Mann Reason for consultation: rt comminuted displaced intertoc Has provider been notified: Yes 06/18/22 13:50 Consult to Occupational Therapy Evaluate & Treat Comment: Physician Instructions: Evaluate and treat Consult to Physical Therapy Evaluate & Treat Comment: Physician Instructions: Evaluate and Treat 06/18/22 21:08 Consult to Discharge Planning Routine Comment: Consult to Physical Therapy Evaluate & Treat Comment: Physician Instructions: Evaluate and Treat Discharge provider: Ry Moses DO Summary Hospital Course Discharge Diagnosis: 1.? POD #3 from R femur intramedullary nailing for trochanteric fx ?Continue working on mobility.? PT rec's SNF.? Care management arranged rehab.? Encouraged her to monitor her knee pain when she worked with therapy next.? If i t does seem to be persistent, she is instructed to advise her nurse and we can consider further workup if needed.? Advised it may very well generalized discomfort from her fall.? She has required reassurance regarding her hip and thigh pain as well. 2.? Anemia Likely secondary to expected intraoperative losses and acute fracture.? 6.7 yesterday.? 2 units of packed red blood cells were given and hemoglobin improved to 9.3 today.? 3.? HTN Chronic.? Continue olmesartan.? Blood pressure is moderately hypertensive today. 4.? Depression Continue sertraline 5. Thrombocytopenia Mild at 131 yesterday.? Improved at 142 today.? Likely consumptive related to surgery and her injury. 6. Hyponatremia Mild.? Low at 133 yesterday.? Improved at 136 today. Hospital Course: Admitted for fall resulting in R femur fracture. This was repaired by ortho. PT rec SNF. Had postop anemia due to blood loss and received 2 units of PRBC's. Hgb stable after that. Discharged with 6 weeks of lovenox, garcias still in place and oxy for pain control PRN. Time Spent with Patient Time spent: Greater than 30 minutes Exam Vital Signs (past 8 hours): - 06/22/22 06:00 06/22/22 09:08 Temperature 97.9 F 98.0 F Pulse Rate 82 78 Respiratory Rate 18 16 Blood Pressure 128/61 114/50 L Pulse Oximetry 96 100 Oxygen Delivery Method Nasal Cannula Oxygen Flow Rate 0 Narrative Exam Narrative: GEN:? Very pleasant elderly female, Alert and oriented x 3, NAD HEENT:NC, Face symmetric CHEST: Respiratory excursions symmetric, CTAB CV: RRR, no M/R/G ABD: Soft, NT/ND, BT present in all 4 quadrants, no organomegaly or masses EXTR: warm, well perfused, no C/C/E, right hip dressings are clean/dry/intact SKIN: warm and dry, no rash NEURO: Alert and oriented x 3, nonfocal Musculoskeletal: Mild tenderness with palpation of her right quadriceps muscles, no obvious deformity or effusion to the right knee Objective Labs Result Diagrams: 06/22/22 05:22 06/22/22 05:22 Labs: Laboratory Results - last 24 hr 06/22/22 06/22/22 05:22 05:22 WBC 7.0 RBC 3.19 L Hgb 9.4 L Hct 28.0 L MCV 87.8 MCH 29.5 MCHC 33.6 RDW 18.3 H Plt Count 173 Neut % (Auto) 70.7 Lymph % (Auto) 19.0 L Cascade % (Auto) 8.9 Eos % (Auto) 1.1 L Baso % (Auto) 0.3 Neut # (Auto) 4900 Lymph # (Auto) 1300 Cascade # (Auto) 600 Eos # (Auto) 100 Baso # (Auto) 0 Sodium 135 L Potassium 3.9 Chloride 105 Carbon Dioxide 29 BUN 23 H Creatinine 0.77 Estimated GFR > 60 BUN/Creatinine Ratio 29.9 H Glucose 103 Calcium 9.2 PFSH Social History household members: none Smoking Status: Never smoker alcohol intake: current Discharge Plan Discharge Plan Patient Disposition: SNF Other facility[facility] in [place], [place] Under care of provider: Facility MD Discharge orders & Medications Prescriptions: New sennosides [senna] 8.6 mg Tablet 8.6 mg PO BID Qty: 20 0RF acetaminophen 325 mg Tablet 650 mg PO Q6H PRN (Reason: Fever/Mild Pain (1-3)) Qty: 30 0RF polyethylene glycol 3350 17 gram Powder In Packet 17 g PO DAILY PRN (Reason: Constipation) Qty: 14 0RF bisacodyl 10 mg Suppository 10 mg ME DAILY PRN (Reason: Constipation) Qty: 12 0RF oxycodone 5 mg tablet 5 mg PO Q4H PRN (Reason: pain) Qty: 30 0RF enoxaparin [Lovenox] 40 mg/0.4 mL Syringe 40 mg SUBCUT DAILY 42 Days Qty: 4 0RF Rx Instructions: until Jul 16, 2022 Continued sertraline 25 mg tablet 25 mg PO DAILY Label Comments: Take 1 tablet by mouth once a day olmesartan 40 mg tablet 40 mg PO DAILY Follow up/Referrals: Chandrakant Bhatia [Non-Staff] - Ajay Mann MD [Physician] - 2 Weeks (Follow up with a PA at [facility] between Jun 28- for wound check and staple removal. If this is inconvenient, please have ryley removed at [facility] or by a closer provider during those dates. Come in to see Dr Mann in about 6 weeks after surgery for repeat xrays.) Diet/Activity/Treatments Diet: Diet as Tolerated Liquid consistency: Normal/Thin Food texture: Regular Activity: As tolerated, per PT/OT Other treatments: Weightbearing as tolerated with crutches or walker for 4 weeks (through Jul 16, 2022). After Jul 16 it is okay to ambulate without assistance if stable and strong enough. 2) DVT prophylaxis for through Jul 16, 2022 with Lovenox 40 mg sq daily. 3) Dressings can be removed completely on June 25. Okay for warm soap and water to run over the incisions and a shower or sponge bath, however no soaking the wounds. 4) Follow-up in 2 weeks with a PA for staple removal, and follow-up in [address] Mann with x-rays on arrival. Given that pt may d/c to [facility], the 2- week wound check and staple removal can be done at the [facility] or by a closer pro vider if more convenient. No soaking incisions or applying any creams, lotions, or ointments to them until completely healed. Dressing/Wound care: -okay to remove Zack wrap after 48-72 hours of surgery -Okay to change dressings to clean dry dressings after 3 days. Okay for dressings to come off completely at 7 days. Okay for warm soap and water to run over the incision and a shower or sponge bath. -No soaking or submerging until all the scabs fall off (approximately 6 weeks). -No lotions, ointments, or scar creams directly to the incision until the wound is healed (4-6 weeks), -Please call the office if dressing becomes wet, soiled, or saturated. Activities: -Weightbearing as tolerated with crutches or walker for 4 weeks. After 4 weeks it is okay to ambulate without assistance if stable and strong enough. -Continue with home exercises as directed by your physical therapist. -Elevate ?toes above the nose if you have significant swelling in your lower leg. (A wedge pillow is easiest.) -Ice your incision as needed for pain/inflammation/swelling. Protect your skin with a folded pillowcase. Follow-up: -call to schedule the following appointments: -Follow-up with PA in the orthopedic office between Jun 28 and for wound check. Please see above comments if this is not possible. -Follow-up with your surgeon 6 weeks postoperatively. Call the office if you have chest pain, shortness of breath, significant swelling that will not resolve with elevating, fever over 101?, significantly worsening pain, or are concerned you might need to go to the Emergency Room. [facility]: [phone] Skin/Wound/Dressing Care Report to your healthcare provider any signs of infection, such as:: chills, fever, night sweats, unusual drainage and unusual redness Special Rehabilitation Services Reason for rehabilitation: Post-operative therapy Rehab type: Physical therapy and Occupational therapy Visit Report/Discharge Packet Instructions: DI for Prescription Opioid Use Stand Alone Forms: Surgery Discharge Quality VTE Deep Vein Thrombosis/Pulmonary Embolism Present on Admission: No
[2022-06-22 09:43] LABS: COVID19 -Nasal RAPID Negative (Negative)
[2022-06-22] MEDS: SERTRALINE 50 MG TABLET 25 MG PO (09:50)
[2022-06-22] MEDS: LOSARTAN 50 MG TABLET 100 MG PO (09:50)
[2022-06-22] MEDS: SENNOSIDES 8.6 MG TABLET PO (09:50)
[2022-06-22] MEDS: ENOXAPARIN 40 MG/0.4 ML SYRINGE SUBCUT (09:50)
--- NOTE | 2022-06-22 10:14 | PC.NURSE ---
Per Dr. Moses maintain garcias during transport per patient request/comfort during a long car ride. Discontinue upon arrival to SNF.
--- NOTE | 2022-06-22 11:42 | PT.IPTN ---
Current Diagnoses Displaced comminuted fracture of shaft of right femur, initial encounter for closed fracture (06/18/22) Other specified postprocedural states (06/18/22) Surgery Performed Operation Date: 06/18/22 17:30 Actual Procedures p Intramedullary Nailing Femur(Right) - Ajay Mann MD Physical Therapy Treatment Note M2 PT-IP Current Condition Start: 06/19/22 14:39 Freq: NEEDED Status: Discharge Protocol: Document 06/19/22 10:12 DLM (Rec: 06/19/22 15:04 DLM [id number]) Physical Therapy Current Condition Current Condition Evaluation Date 06/19/22 Treatment Diagnosis Right femur fx s/p ORIF, impaired gait and mobility Onset Date 06/18/22 M3 PT-IP Subjective Start: 06/19/22 14:39 Freq: NEEDED Status: Discharge Protocol: Document 06/22/22 11:42 AW (Rec: 06/22/22 14:42 AW [id number]) Subjective Physical Therapy Visit Type Type Treatment Note Visit Start Time 08:55 Visit Stop Time 11:42 Total Visit Minutes 33 Notes Split visits [id number] and [id number] with OT Number of JOB ANALYSIS MANAGER Visits 0 Physical Therapy Visit Comments Patient Comments Pt is preparing to discharge to [facility]. She hopes to be able to get into her daughter's [facility]. Therapy Pain Assessment Pain When Pain Assessed During Mobility Pain Present Pain Present Denied Pain Location Right Hip Intensity 6 Scale Used Numeric (0 - 10) M4 PT-IP Mobility and Gait Start: 06/19/22 14:39 Freq: NEEDED Status: Discharge Protocol: Document 06/22/22 11:42 AW (Rec: 06/22/22 14:42 AW [id number]) PT-Bed Mobility Assessment Supine to Sit Supine to Sit Minimal Assistance,Head of Bed Elevated Scooting Scooting to Edge of Bed Minimal Assistance PT-Transfer Assessment Sit to and From Stand Sit to and from Stand Moderate Assistance,2 Person Assistance Equipment Transfer Assistive Device Gait Belt,Front Wheeled Walker Transfers Transfer Destination Chair,Bedside Commode,Car Transfer Technique Stand Pivot Transfer Ability Level of Assist Maximum Assistance,Total Assistance,2 Person Assistance Comments Mobility Comments During early AM session, pt needed assist to sitting EOB. Mod A x 2 to stand and max A x 2 to transfer toward left side to chair. Pt was able to pivot on her left foot and needed cues and assist to bring her RLE along. Once sitting on the chair, pt stated need to use the commode . Set up the commode on her left. Mod A x 2 to stand and pt transferred with left foot pivot to commode with PT assisting via gait belt and pt 's daughter guiding her hips to commode from behind. Pt was left on the commode with OT. PT returned later to assist with car transfer. Pt was in the w/c as PT arrived. She was escorted to the main entrance . Vehicle was situated next to the curb. PT assisted pt to stand using car door for support. She was able to stand tall as PT assisted via gait belt. OT was inside the car and able to pull pt's hips onto the front seat of the car . PT assisted pt to lift RLE into the car and helped position her. Pt left with her daughter driving POV. Gait Assessment Comments Gait Comments Pivot steps taken during transfer. RLE WB remains limited. PT-Balance Assessment Sitting Balance and Reactions Static Sitting Balance Ability Good Dynamic Sitting Balance Ability Fair Standing Balance and Reactions Static Standing Balance Ability Poor Dynamic Standing Balance Ability Poor Device Used fWW M5 PT-IP Objective Assessments Start: 06/19/22 14:39 Freq: NEEDED Status: Discharge Protocol: Document 06/19/22 10:12 [facility] (Rec: 06/19/22 15:04 [facility] [id number]) Orientation Orientation/Cognition Level of Alertness Alert Orientation Name,Age,Birthday,Month,Date, Year,Day of Week,Place, Situation Language Function Ability Hard of Hearing Safety Awareness Decreased Safety Awareness Memory Description No Deficits Noted Comments she can be tangential and disorganized in conversation, she is pleasant and cooperative, she has limited awareness of her current limitations at this time Gross Range of Motion Upper Extremity ROM Assessment Within Functional Limits Lower Extremity ROM Assessment Right Impaired Impairments pain moving right hip area, functional for sitting, limited hip flexion in supine (about 45 degrees) Strength Upper Extremity Strength Assessment Within Functional Limits Lower Extremity Strength Assessment Right Impaired Hip needs assist to move right LE in bed with pain Knee seated knee ext 2+/5 with pain Ankle DF 4+/5 Comments Strength Comments she reports she has hx of left hip area fracture that healed well, no details in her medical chart Coordination Assessment Gross Coordination Gross Coordination WNL Sensation Assessment Sensation Gross Sensation WNL Muscle Tone Muscle Tone WNL Yes Other Assessments Other Other Assessments mild decrease in motor coordination globally with difficulty coordinating scooting and compensatory movement patterns M6 PT-IP Treatment Start: 06/19/22 14:39 Freq: NEEDED Status: Discharge Protocol: Document 06/22/22 11:42 AW (Rec: 06/22/22 14:42 AW [id number]) Physical Therapy Treatment Education Education Provided Weight Bearing Status,Safety M7 PT-IP Assessment and Plan Start: 06/19/22 14:39 Freq: NEEDED Status: Discharge Protocol: Document 06/22/22 11:42 AW (Rec: 06/22/22 14:42 AW [id number]) PT Summary Assessment and Plan Summary Impairments Pain,ROM,Strength,Balance,Bed Mobility,Transfers,Gait, Activity Tolerance Progress Towards Goals Slow Progress due to Activity Tolerance Assessment Summary Pt was able to transfer to chair, BSC, and car today with max/total A x 2. She is on her way to a [facility]. Goals Bed Mobility Goal Independent Transfer Goal Independent,Front Wheeled Walker Gait Goal Independent,Front Wheel Walker Gait Distance 50 feet Other Goals Up and down one step with FWW and CG/SBA. Days to Meet Goals 10 Frequency of Treatment Frequency Of Treatment Twice a Day Treatment Plan Physical Therapy Treatment Plan Bed Mobility Training,Transfer Training,Gait Training, Therapeutic Exercise,Balance Retraining,Post Op Education, Discharge Planning,Hot or Cold Pack,Neuromuscular Re-ed Weight Bearing Status Weight Bearing Status Weight Bear as Tolerated Allowed Weight Bearing Amount (enter % right LE s/p ORIF 06/18/22 or #) (%) Recommendations To Nursing Amount of Assist Needed 2 Person Assist Discharge Recommendations PT Discharge Recommendations SNF Rehab
--- NOTE | 2022-06-22 11:42 | OT.IP.TRT ---
Current Diagnoses Displaced comminuted fracture of shaft of right femur, initial encounter for closed fracture (06/18/22) Other specified postprocedural states (06/18/22) Surgery Performed Operation Date: 06/18/22 17:30 Actual Procedures p Intramedullary Nailing Femur(Right) - Ajay Mann MD Occupational Therapy Treatment Note M2 OT-IP Current Condition Start: 06/19/22 14:40 Freq: Status: Discharge Protocol: Document 06/19/22 14:41 [facility] (Rec: 06/19/22 15:04 [facility] [id number]) Occupational Therapy Current Condition Current Condition Evaluation Date 06/19/22 Treatment Diagnosis Right intertrochanteric femur fx, s/p ORIF right hip Diagnosis Onset Date 06/18/22 Weight Bearing Status Weight Bearing Status Weight Bear as Tolerated M3 OT- IP Subjective and Pain Start: 06/19/22 14:40 Freq: Status: Discharge Protocol: Document 06/22/22 08:56 [facility] (Rec: 06/22/22 12:29 [facility] [id number]) OT- Subjective Occupational Therapy Visit Type Visit Start Time 08:56 Visit Stop Time 11:42 Total Visit Minutes 60 Notes Pt seen for split treatments [id number] and [id number], pt's daughter present. Occupational Therapy Visit Comments Patient Comments Pt agreed to use the BSC. Patient/Caregiver Goals To be able to care fore herself again. OT Pain Assessment Pain When Pain Assessed During Mobility Pain Present Pain Present Pain Reported M4 OT- IP ADL's Start: 06/19/22 14:40 Freq: Status: Discharge Protocol: Document 06/22/22 08:56 [facility] (Rec: 06/22/22 12:29 [facility] [id number]) OT [id number] Comments OT Self-Feeding Comments Not at meal time. OT ADL-Grooming Comments OT Grooming Comments Able to do while seated in the wc. OT ADL-Oral Care Comments Oral Care Comments Able to do while seated in the WC OT ADL-Dressing General Eval Lower Body Dressing Ability Maximum Assistance,Total Assistance Areas Needing Assistance Underpants/Brief,Pants/Shorts, Socks Comments OT Dressing Comments Assist to tread the catheter through the pants, assist to dawna brief over her feet and over over her hips when another person assist to stand her with MAXA 1 with FWW. OT ADL-Toileting General Evaluation Toileting Ability Total Assistance Comments OT Toileting Comments Gill in place, pt dependent for all brief and hygiene needs after BM. OT ADL-Bathing Comments OT Bathing Comments Sponge bath more appropriate at this time. M5 OT- IP IADL's Start: 06/19/22 14:40 Freq: Status: Discharge Protocol: Document 06/19/22 14:41 [facility] (Rec: 06/19/22 15:04 [facility] [id number]) OT-Instrumental Activities of Daily Living Deficits IADL Deficits Identified Deficits Medication Management Medication Management Comments Prior pt states was completely independent with all her needs. Money Management Money Management Comments Prior pt states was completely independent with all her needs. Meal Preparation Meal Preparation Comments Prior pt states was completely independent with all her needs. Carpenter Helper Carpenter Helper Comments Prior pt states was completely independent with all her needs. Driving Driving Comments Pt states was driving prior. M6 OT- IP Functional Cognition Start: 06/19/22 14:40 Freq: Status: Discharge Protocol: Document 06/22/22 08:56 [facility] (Rec: 06/22/22 12:29 [facility] [id number]) Cognitive Factors Limiting Selfcare Function Cognitive Comments Cognitive Assessment Comments Pt able to follow command better today and partake in conversations better. Pt still gets distracted at times. M7 OT- IP Mobility and Balance Start: 06/19/22 14:40 Freq: Status: Discharge Protocol: Document 06/22/22 08:56 [facility] (Rec: 06/22/22 12:29 [facility] [id number]) OT-Transfer Assessment Sit to and From Stand Sit to and from Stand Moderate Assistance,Maximum Assistance,2 Person Assistance Transfers Transfer Ability Maximum Assistance,Total Assistance,2 Person Assistance Technique Transfer Destination Bed,Bedside Commode,Car,Chair, Wheelchair Transfer Technique Stand Step Pivot Devices Transfer Assistive Devices Gait Belt,Front Wheeled Walker Comments Mobility Comments Pending on the level of surface standing from needing from MODA X2 to MAX AX 2. Pt' s transfer with FWW MAX AX 2 as pt needing to shuffle her feet side to side to move at this time to the recliner and BSC. Opted to just stand from the BSC and swap out for the WC. WC to car MAX/TOTAL Ax2 and pt having to hold to the care door to assist as well. OT- Balance Assessment Sitting Balance and Reactions Static Sitting Balance Ability Good Dynamic Sitting Balance Ability Fair Standing Balance and Reactions Static Standing Balance Ability Poor Dynamic Standing Balance Ability Poor M8 OT- IP Objective Assessments Start: 06/19/22 14:40 Freq: Status: Discharge Protocol: Document 06/19/22 14:41 [facility] (Rec: 06/19/22 15:04 [facility] [id number]) OT Gross Range of Motion Upper Extremity Range of Motion Assessment Within Functional Limits OT Strength Upper Extremity Strength Assessment Within Functional Limits Comments Strength Comments BUE 4/5 OT- Coordination Assessment Comments Coordination Comments Pt has arthritis in her hands and having to use her teeth to open the seal from the toothpaste tube. OT-Muscle Tone Assessment Muscle Tone WNL Yes M9 OT- IP Assessment and Plan Start: 06/19/22 14:40 Freq: Status: Discharge Protocol: Document 06/22/22 08:56 [facility] (Rec: 06/22/22 12:29 [facility] [id number]) OT Summary Assessment and Plan Potential Rehabilitation Potential Good Analytic Complexity at Evaluation Moderate Summary OT Impairments Pain,Strength,Balance, Functional Mobility,Dressing, Toileting,Bathing,Toilet Transfers,Shower Transfers, Activity Tolerance Progress Towards Goals Progressing Toward Goals Assessment Summary Pt able to tolerate transfer to the recliner, BSC, and care today. Pt needing extensive assist x2 for all transfers as mainly just able to shuffle her feet side to side and with use of FWW to transfer. Pt going to skilled rehab today. Goals Grooming Goal Independent Dressing Goal Independent Toileting Goal Independent Bathing Goal Independent Toilet Transfer Goal Independent Shower Transfer Goal Independent Days to Meet Goals 24 Frequency of Treatment Frequency Of Treatment Once a Day Treatment Plan OT Treatment Plan ADL Training,Functional Mobility,Patient/Family Education,Discharge Planning Discharge Recommendations OT Discharge Recommendations SNF Rehab Transportation Needs at Discharge Private Vehicle
--- NOTE | 2022-06-22 11:44 | PC.NURSE ---
Called Kyra for nurse report [phone] at approx 10am, she had not received any information yet and not ready to receive report. Paperwork was finalized by MD and case management and confirmed sent. Packet given to patient's daughter for transport. Patient in wheelchair to be escorted out and assisted by PT/OT into her vehicle as arranged. Able to call back Kyra to give report prior to patient leaving. Gill is in place during transportation and to be discontinued upon arrival at SNF. Patient has IV out, and all belongings with patient.
== END 2022-06-22 11:30 | DRG 481 ==
LOC: ED 13:34 → AC 13:56
PROVIDERS: Family Medicine; Orthopaedic Surgery; Admitting Provider Student in an Organized Health Care Education/Training Program; Emergency Provider Nurse Practitioner Critical Care Medicine; Referring Provider Nurse Practitioner Critical Care Medicine; Visit Provider Student in an Organized Health Care Education/Training Program
PROC: 0QS606Z Reposition Right Upper Femur with Intramedullary Internal Fixation Device, Open Approach (ICD-10-PCS; CPT 27245; principal; 2022-06-18 17:30)
DX: S72.141A Displaced intertrochanteric fracture of right femur, initial encounter for closed fracture (principal); D62 Acute posthemorrhagic anemia; I10 Essential (primary) hypertension; F32.A Depression, unspecified; W18.30XA Fall on same level, unspecified, initial encounter; Z66 Do not resuscitate; Z20.822 Contact with and (suspected) exposure to COVID-19
CPT/HCPCS: 0241U; 36415; 36430; 72100; 72192; 73502; 73552; 76000; 80048; 80053; 81001; 83735; 85014; 85018; 85025; 85610; 86850; 86900; 86901; 87635; 96374; 96376; 97162; 97166; 97530; 97535; 99284; C9803; P9016; J0171; J0690; J1170; J1650; J2405; J2704; J3010

== ENCOUNTER → 2022-12-01 10:29 | Outpatient (CLI) | payer MEDICARE, OTHER, SELFPAY ==
[2022-06-18 15:41] VITALS: BMI 26.9
--- NOTE | 2022-12-01 | DI.RAD.S_ITS ---
PROCEDURE: FL JOINT INJECTION MEDIUM LT INDICATIONS: DJD LEFT SHOULDER COMPARISON: [facility], CR, XR PELVIS WITH LATERAL HIP RIGHT, 08/21/2022, 14:07. TECHNIQUE: The indications, alternatives, benefits, risks, and complications of the procedure were explained to the patient. Written informed consent was obtained and placed in the chart. The patient was placed in an appropriate position on the fluoroscopy table, and a site was chosen for percutaneous access under fluoroscopic guidance. The site was prepped and draped in a sterile fashion. Local anesthetic was administered using a 1% lidocaine solution. A hypodermic or spinal needle was then used to access the symptomatic joint. Intra-articular location of the needle tip was confirmed by injecting a small amount of contrast, followed by steroid administration. The needle was then withdrawn, and a bandage applied to the puncture site. FINDINGS: Joint injected: Left shoulder Medications injected: 4 mL of 40 mg/mL Kenalog and 0.5% Ropivacaine mixture. Patient's pain before injection: 8 out of 10. Patient's pain after injection: 0 out of 10. 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 Complications: None. IMPRESSION: Successful fluoroscopically guided administration of steroid and anaesthetic solution into the left glenohumeral joint. Dictated by: Cat Glasgow M.D. on 12/02/2022 at 10:36 Approved by: Cat Glasgow M.D. on 12/02/2022 at 10:37
== END ==
PROVIDERS: PCP Family Medicine; Referring Provider Physician Assistant Surgical; Visit Provider Physician Assistant Surgical
DX: M19.012 Primary osteoarthritis, left shoulder (principal)
CPT/HCPCS: 20605; 76000

== ENCOUNTER → 2023-05-31 12:41 | Outpatient (CLI) | payer MEDICARE, OTHER, SELFPAY ==
[2022-06-18 15:41] VITALS: BMI 26.9
--- NOTE | 2023-05-31 | DI.RAD.S_ITS ---
PROCEDURE: [place] JOINT INJECTION MEDIUM LT INDICATIONS: DEGENERATIVE JOINT DISEASE LEFT SHOULDER COMPARISON: [facility], , [place] JOINT INJECTION MEDIUM LT, 12/01/2022, 11:10. TECHNIQUE: The indications, alternatives, benefits, risks, and complications of the procedure were explained to the patient. Written informed consent was obtained and placed in the chart. The patient was placed in an appropriate position on the fluoroscopy table, and a site was chosen for percutaneous access under fluoroscopic guidance. The site was prepped and draped in a sterile fashion. Local anesthetic was administered using a 1% lidocaine solution. A hypodermic or spinal needle was then used to access the symptomatic joint. Intra-articular location of the needle tip was confirmed by injecting a small amount of contrast, followed by steroid administration. The needle was then withdrawn, and a bandage applied to the puncture site. FINDINGS: Joint injected: Left shoulder Medications injected: 4 mL of 40 mg/mL Kenalog and 0.5% Ropivacaine mixture. Patient's pain before injection: 7 out of 10. Patient's pain after injection: 0 out of 10. Complications: None. IMPRESSION: Successful fluoroscopically guided administration of steroid and anaesthetic solution into the left shoulder joint. Dictated by: Denis Zavala M.D. on 05/31/2023 at 13:58 Approved by: Denis Zavala M.D. on 05/31/2023 at 13:58
[2023-05-31] MEDS: ROPIVACAINE 0.5% PF 5 MG/ML 20ML VIAL 20 ML INJ (13:20)
[2023-05-31] MEDS: TRIAMCINOLONE 40 MG/ML VIAL INTRA-ARTI (13:20)
[2023-05-31] MEDS: LIDOCAINE 1% 20 ML INJ (13:20)
== END ==
PROVIDERS: PCP Family Medicine; Referring Provider Physician Assistant Surgical; Visit Provider Physician Assistant Surgical
DX: M19.012 Primary osteoarthritis, left shoulder (principal)
CPT/HCPCS: 20605; 77002

== ENCOUNTER → 2023-10-08 13:28 | Outpatient (CLI) | payer MEDICARE, OTHER, SELFPAY ==
[2022-06-18 15:41] VITALS: BMI 26.9
--- NOTE | 2023-10-08 13:31 | DI.RAD.S_ITS ---
PROCEDURE: [place] JOINT INJECTION MEDIUM LT INDICATIONS: Primary osteoarthritis, left shoulder COMPARISON: [facility], [place], [place] JOINT INJECTION MEDIUM LT, 05/31/2023, 14:16. TECHNIQUE: The indications, alternatives, benefits, risks, and complications of the procedure were explained to the patient. Written informed consent was obtained and placed in the chart. The patient was placed in an appropriate position on the fluoroscopy table, and a site was chosen for percutaneous access under fluoroscopic guidance. The site was prepped and draped in a sterile fashion. Local anesthetic was administered using a 1% lidocaine solution. A hypodermic or spinal needle was then used to access the symptomatic joint. Intra-articular location of the needle tip was confirmed by injecting a small amount of contrast, followed by steroid administration. The needle was then withdrawn, and a bandage applied to the puncture site. FINDINGS: Joint injected: Left shoulder Medications injected: 4 mL of 40 mg/mL Kenalog and 0.5% Ropivacaine mixture. Patient's pain before injection: 10 out of 10. Patient's pain after injection: 0 out of 10. Complications: None. IMPRESSION: Successful fluoroscopically guided administration of steroid and anaesthetic solution into the left shoulder joint. Dictated by: Denis Zavala M.D. on 10/08/2023 at 17:22 Approved by: Denis Zavala M.D. on 10/08/2023 at 17:23
[2023-10-08] MEDS: LIDOCAINE 1% 20 ML INJ (14:49)
[2023-10-08] MEDS: ROPIVACAINE 0.5% PF 5 MG/ML 20ML VIAL 20 ML INJ (14:51)
[2023-10-08] MEDS: TRIAMCINOLONE 40 MG/ML VIAL INTRA-ARTI (14:52)
== END ==
LOC: RAD 13:29
PROVIDERS: PCP Family Medicine; Referring Provider Physician Assistant Surgical; Visit Provider Physician Assistant Surgical
DX: M19.012 Primary osteoarthritis, left shoulder (principal)
CPT/HCPCS: 20605; 77002

== ENCOUNTER 2024-10-12 11:13 | Observation (INO) | payer OTHER, SELFPAY ==
[2022-06-18 15:41] VITALS: BMI 26.9
[2024-10-12] VITALS (21 sets, daily range): BP systolic 128–192; BP diastolic 57–78; PULSE 58–77; RESP 15–28; TEMP 36.6–36.7; O2SAT 92–100; BMI 27.3
--- NOTE | 2024-10-12 11:23 | DI.RAD.S_ITS ---
PROCEDURE: XR HIP W PEL IF DONE LT 2V INDICATIONS: fall/left hip pain/can't walk TECHNIQUE: 2 views of the hip were acquired. COMPARISON: [facility], CR, XR HIP W PEL IF DONE RT 2V, 06/18/2022, 12:30. FINDINGS AND IMPRESSION: Bilateral hip arthrosis. No definite acute displaced femoral neck fracture. No hip dislocation. Possible bony irregularity in the inferior left pubic ring. Consider CT to further evaluate given reported history. Right femur postsurgical changes, with fracture bridging. Dictated by: Nilay Bazan M.D. on 10/12/2024 at 11:54 Approved by: Nilay Bazan M.D. on 10/12/2024 at 11:55
--- NOTE | 2024-10-12 12:01 | DI.RAD.S_ITS ---
PROCEDURE: XR CHEST 1V INDICATIONS: Shortness of breath TECHNIQUE: One view of the chest was acquired. COMPARISON: None. FINDINGS: Surgical changes and devices: None. Lungs and pleura: Lungs are clear. No pleural effusions or pneumothorax. Mediastinum: Mediastinal contours appear normal. Heart size is normal. Bones and chest wall: No suspicious bony lesions. Overlying soft tissues appear unremarkable. IMPRESSION: No acute cardiopulmonary abnormality is seen. Dictated by: Melvin Ahn M.D. on 10/12/2024 at 12:22 Approved by: Melvin Ahn M.D. on 10/12/2024 at 12:22
[2024-10-12 12:11] LABS: Add Manual Diff / Slide Review NO; Basophils Absolute Auto 0 /uL (0-100); Basophils Percent Auto 0.3 % (0-2); Eosinophils Absolute Auto 100 /uL (0-450); Eosinophils Percent Auto 0.6 % (2-4); Hematocrit 35.9 % (36-46); Hemoglobin 12.2 g/dL (12.0-16.0); Lymphocytes Absolute Auto 1300 /uL (1100-4500); Lymphocytes Percent Auto 13.2 % (25-40); Mean Corpuscular HGB Conc 33.8 % (30-36); Mean Corpuscular Hemoglobin 32.4 PG (26-34); Mean Corpuscular Volume 95.7 fL (80-100); Monocytes Absolute Auto 500 /uL (0-900); Monocytes Percent Auto 5.2 % (3-14); Neutrophils Absolute Auto 8100 /uL (1500-7000); Neutrophils Percent Auto 80.7 % (50-75); Platelet Count 215 X10^3/uL (150-400); Prothrombin Time 10.8 SECONDS (9.4-12.5); Red Blood Cell Count 3.75 X10^6/uL (4.0-5.2)
[2024-10-12 12:16] LABS: Alanine Aminotransferase 26 IU/L (<35); Albumin 4.5 g/dL (3.5-5.0); Albumin Globulin Ratio 1.6 (1.0-2.8); Alkaline Phosphatase 69 U/L (38-126); Aspartate Aminotransferase 41 IU/L (14-36); BUN Creatinine Ratio 33.3 (6-22); Bilirubin Total 0.7 mg/dL (0.2-1.3); Blood Urea Nitrogen 25 mg/dL (7-17); Calcium 10.8 mg/dL (8.4-10.2); Carbon Dioxide 23 mmol/L (22-32); Chloride 108 mmol/L (98-107); Estimated Glomerular Filt Rate > 60 mL/min (>60); Globulin 2.8 g/dL (1.7-4.1); Glucose 99 mg/dL (80-110); HEMOLYSIS < 15 (0-50); Potassium 4.1 mmol/L (3.4-5.1); Sodium 140 mmol/L (137-145); Total Protein 7.3 g/dL (6.3-8.2)
[2024-10-12 12:28] LABS: NT-proBNP (BNP-Adult 18+) 174 pg/mL (<450); Troponin I < 0.012 ng/mL (0.01-0.034)
--- NOTE | 2024-10-12 12:33 | EKG_ITS ---
[place] [id number] [place] [id number] Test Date: 2024-10-12 Pat Name: Christian Villagran Department: [facility] Room: Gender: Female Full Time Babysitter: RALPH : 1935 Requested By: Order Number: [id number] Reading MD: Henrry Borden Measurements Intervals [place] Rate: 65 P: 48 VT: 200 QRS: -45 QRSD: 94 T: 39 QT: 396 QTc: 411 Interpretive Statements Normal sinus rhythm Incomplete right bundle branch block Left anterior fascicular block Moderate voltage criteria for LVH, may be normal variant ( R in aVL , [facility] product ) Electronically Signed On 10-13-2024 19:10:16 PDT by Henrry Borden
--- NOTE | 2024-10-12 13:41 | DI.CT.S_ITS ---
PROCEDURE: CT PEL WO CON INDICATIONS: severe left hip pain TECHNIQUE: Noncontrast 3 mm axial sections acquired through the bony pelvis, with coronal and sagittal reformatting. COMPARISON: [facility], CR, XR HIP W PEL IF DONE LT 2V, 10/12/2024, 11:27. [facility], CT, CT PEL WO CON, 06/18/2022, 13:34. FINDINGS: Image quality: Excellent. Bones: There is prior internal fixation of right proximal femur with surgical hardware in place. Acute slightly comminuted fracture involving mid shaft of left inferior pubic ramus is seen. No left femoral fracture or dislocation. No evidence of avascular necrosis of femoral heads. No suspicious intraosseous lesions. Soft tissues: There is mild soft tissue swelling surrounding left inferior pubic ramus fracture site. Asymmetric enlargement of left obturator externus muscle adjacent to the inferior pubic ramus likely represent intramuscular hematoma. No discrete soft tissue mass or drainable fluid collection. No pelvic free fluid or free air. No abnormal bowel wall thickening. Bladder wall thickness is normal. IMPRESSION: 1. Acute comminuted and minimally displaced fracture involving left inferior pubic ramus. 2. No other acute pelvic fracture or dislocation. Prior internal fixation of right proximal femur. Bilateral hip joint osteoarthritis. No evidence of avascular necrosis of femoral head. 3. Mild soft tissue swelling adjacent to left inferior pubic ramus fracture site with intramuscular hematoma involving adjacent left obturator externus muscle. No discrete drainable fluid collection or large soft tissue mass. No abnormal soft tissue calcifications. No pelvic free fluid or free air. Dictated by: Sb Castro M.D. on 10/12/2024 at 14:24 Approved by: Sb Castro M.D. on 10/12/2024 at 14:28
--- NOTE | 2024-10-12 14:15 | PC.NURSE ---
Pt declined pain medication, stating that she is not feeling pain at this time. Refusing to do ambulation trial because she is unable to bear weight on her lower extremities. RN offered walker to assist with ambulation and pt still refused. A&Ox4.
--- NOTE | 2024-10-12 15:21 | ED.FALL ---
HPI - Fall General Chief Complaint: Fall Stated Complaint: GLF Time Seen by Provider: 10/12/24 13:41 Source: patient Mode of arrival: EMS History of Present Illness HPI Narrative: Patient 89-year-old history of depression hypertension presenting today with a ground level fall. Reports that she was walking into her bathroom without any shoes or socks on noticed that the floor was cold she turned around and fell onto her left hip. Did not hit her head or lose consciousness. Not on any antiplatelet or anticoagulation medication. No chest pain shortness of breath or other symptoms. Having significant left hip pain. She was here with a caregiver however caregiver is only intermittent and a neighbor who helps once in awhile. Related Data Home Medications Medication Instructions Recorded Confirmed olmesartan 40 mg tablet 40 mg PO DAILY 06/18/22 10/12/24 sertraline 25 mg tablet 25 mg PO DAILY 06/18/22 10/12/24 calcium 600 mg (as 1 tab PO DAILY 10/12/24 10/12/24 carbonate)-vitamin D3 5 mcg (200 unit) tablet gabapentin 100 mg tablet 100 mg PO PRN PRN NERVE PAIN 10/12/24 10/12/24 sennosides 8.6 mg tablet (senna) 8.6 mg PO BID PRN Constipation 10/12/24 10/12/24 turmeric 1 cap PO DAILY 10/12/24 10/12/24 Previous Rx's Medication Instructions Recorded acetaminophen 325 mg tablet 650 mg (2 x 325 mg) PO Q6H PRN 06/22/22 Fever/Mild Pain (1-3) #30 tabs bisacodyl 10 mg rectal suppository 10 mg MN DAILY PRN Constipation 06/22/22 #12 ea polyethylene glycol 3350 17 gram 17 g PO DAILY PRN Constipation #14 06/22/22 oral powder packet ea Allergies Allergy/AdvReac Type Severity Reaction Status Date / Time dihydroergotamine Allergy Verified 06/18/22 12:41 Patient History Social History household members: none Smoking Status: Never smoker alcohol intake: never Smoking Status: Never smoker alcohol intake frequency: 0-2 drinks per day Exam Initial Vital Signs Initial Vital Signs: Vital Signs Pulse Rate 70 10/12/24 11:19 Pulse Oximetry 98 10/12/24 11:19 GENERAL: Alert pleasant 89-year-old female HEENT: Head atraumatic,EOMI, pupils reactive, face symmetric, moist mucous membranes CARDIOVASCULAR: Regular rate and rhythm without murmurs, rubs or gallops. RESPIRATORY: Breath sounds equal bilaterally, no wheezes rales or rhonchi. ABDOMEN: Soft, nontender. Normoactive bowel sounds all 4 quadrants. No guarding or rebound. EXTREMITIES: Normal range of motion, no clubbing or edema. Neurovascularly intact NEUROLOGICAL: Alert and oriented x4. Moving all extremity SKIN: Warm, dry, no laceration, no petechiae, no rashes or lesions. Course Orders Ordered: ED Orders 10/12/24 11:23 XR hip w pel if done LT 2V Stat 10/12/24 11:53 Complete Blood Count AUTO DIFF Stat Comprehensive Metabolic Panel Stat Lactate (Lactic Acid) Stat NT-proBNP (BNP-Adult 18+) Stat Prothrombin Time INR Stat Troponin I Stat 10/12/24 12:01 XR chest 1V Stat EKG-12 Lead Stat 10/12/24 13:41 CT pelvis wo con Stat Acetaminophen (Acetaminophen 325 Mg Tablet) 650 mg PO Q6H PRN PRN Reason: Fever/Mild Pain (1-3) Docusate Sodium (Docusate 100 Mg Capsule) 100 mg PO BID ANAIS Sodium Chloride (Normal Saline 0.9%) 1,000 mls @ 75 mls/hr IV CONT ANAIS Naloxone HCl (Naloxone 0.4 Mg/Ml Vial) 0.2 mg IV Q2MIN PRN PRN Reason: Opiate Reversal Ondansetron HCl (Ondansetron 4 Mg/2 Ml Inj) 4 mg IV Q8HR PRN PRN Reason: Nausea And Vomiting Oxycodone HCl (Oxycodone Ir 5 Mg Tablet) 5 mg PO Q3H PRN PRN Reason: Pain, Moderate (4-6) Discontinued Medications Hydrocodone Bitart/Acetaminophen (Hydrocodone/Acet 5/325 Tablet) 1 tab PO NOW ONE Stop: 10/12/24 15:54 Last Admin: 10/12/24 16:09 Dose: 1 tab Documented By: FELA Morphine Sulfate (Morphine 2 Mg/Ml Inj) 2 mg IV NOW ONE Stop: 10/12/24 13:42 Last Admin: 10/12/24 14:00 Dose: Not Given Documented By: FELA Vital Signs Vital signs: Vital Signs - 8 hr 10/12/24 11:19 10/12/24 11:20 10/12/24 11:39 Temperature 98 F Pulse Rate 70 70 67 Respiratory Rate 18 Blood Pressure 192/77 H Pulse Oximetry 98 97 97 Oxygen Delivery Method Room Air 10/12/24 11:40 10/12/24 11:40 10/12/24 11:45 Temperature Pulse Rate 66 66 Respiratory Rate Blood Pressure 182/78 H Pulse Oximetry 98 99 Oxygen Delivery Method 10/12/24 11:45 10/12/24 12:00 10/12/24 12:00 Temperature Pulse Rate 67 Respiratory Rate 28 H Blood Pressure 171/77 H 160/74 H Pulse Oximetry 94 Oxygen Delivery Method 10/12/24 12:30 10/12/24 12:36 10/12/24 12:36 Temperature Pulse Rate 63 65 Respiratory Rate 15 19 Blood Pressure 150/69 H Pulse Oximetry 98 97 Oxygen Delivery Method 10/12/24 13:04 10/12/24 13:30 10/12/24 13:58 Temperature Pulse Rate 77 58 L 65 Respiratory Rate 22 19 18 Blood Pressure Pulse Oximetry 97 96 Oxygen Delivery Method Room Air 10/12/24 13:58 10/12/24 14:00 10/12/24 14:00 Temperature Pulse Rate 65 Respiratory Rate Blood Pressure 175/69 H 140/70 Pulse Oximetry Oxygen Delivery Method 10/12/24 14:30 10/12/24 14:30 10/12/24 15:00 Temperature Pulse Rate 67 64 Respiratory Rate 22 21 Blood Pressure 151/66 H Pulse Oximetry 92 92 Oxygen Delivery Method 10/12/24 15:00 10/12/24 15:30 10/12/24 15:30 Temperature Pulse Rate 62 Respiratory Rate 20 Blood Pressure 146/65 H 161/67 H Pulse Oximetry 94 Oxygen Delivery Method 10/12/24 16:00 10/12/24 16:00 10/12/24 16:29 Temperature Pulse Rate 59 L Respiratory Rate 17 Blood Pressure 177/72 H 168/77 H Pulse Oximetry 100 Oxygen Delivery Method 10/12/24 16:29 10/12/24 16:30 Temperature Pulse Rate 67 69 Respiratory Rate 18 18 Blood Pressure Pulse Oximetry 98 98 Oxygen Delivery Method MDM - Fall Lab Data 10/12/24 11:53 10/12/24 11:53 Labs: Lab Results 10/12/24 Range/Units 11:53 WBC 10.0 (4.5-11.0) X10^3/uL RBC 3.75 L (4.0-5.2) X10^6/uL Hgb 12.2 (12.0-16.0) g/dL Hct 35.9 L (36-46) % MCV 95.7 (80-100) fL MCH 32.4 (26-34) PG MCHC 33.8 (30-36) % RDW 15.0 H (11.6-14.8) % Plt Count 215 (150-400) X10^3/uL Neut % (Auto) 80.7 H (50-75) % Lymph % (Auto) 13.2 L (25-40) % Chase % (Auto) 5.2 (3-14) % Eos % (Auto) 0.6 L (2-4) % Baso % (Auto) 0.3 (0-2) % Neut # (Auto) 8100 H (8032-9076) /uL Lymph # (Auto) 1300 (9853-8652) /uL Chase # (Auto) 500 (0-900) /uL Eos # (Auto) 100 (0-450) /uL Baso # (Auto) 0 (0-100) /uL PT 10.8 (9.4-12.5) SECONDS INR 1.0 (0.9-1.3) Sodium 140 (137-145) mmol/L Potassium 4.1 (3.4-5.1) mmol/L Chloride 108 H (98-107) mmol/L Carbon Dioxide 23 (22-32) mmol/L BUN 25 H (7-17) mg/dL Creatinine 0.75 (0.52-1.04) mg/dL Estimated GFR > 60 (>60) mL/min BUN/Creatinine Ratio 33.3 H (6-22) Glucose 99 (80-110) mg/dL Lactate 1.0 (0.7-2.1) mmol/L Calcium 10.8 H (8.4-10.2) mg/dL Total Bilirubin 0.7 (0.2-1.3) mg/dL AST 41 H (14-36) IU/L ALT 26 (<35) IU/L Alkaline Phosphatase 69 (38-126) U/L Troponin I < 0.012 (0.01-0.034) ng/mL NT-Pro-B Natriuret Pep 174 (<450) pg/mL Total Protein 7.3 (6.3-8.2) g/dL Albumin 4.5 (3.5-5.0) g/dL Globulin 2.8 (1.7-4.1) g/dL Albumin/Globulin Ratio 1.6 (1.0-2.8) Imaging Data Extremity x-ray #1: Radiologist's Impression: PROCEDURE: XR HIP W PEL IF DONE LT 2V INDICATIONS: fall/left hip pain/can't walk TECHNIQUE: 2 views of the hip were acquired. COMPARISON: [facility], CR, XR HIP W PEL IF DONE RT 2V, 06/18/2022, 12:30. FINDINGS AND IMPRESSION: Bilateral hip arthrosis. No definite acute displaced femoral neck fracture. No hip dislocation. Possible bony irregularity in the inferior left pubic ring. Consider CT to further evaluate given reported history. Right femur postsurgical changes, with fracture bridging. Dictated by: Nilay Bazan M.D. on 10/12/2024 at 11:54 Chest x-ray: Radiologist's Impression: PROCEDURE: XR CHEST 1V INDICATIONS: Shortness of breath TECHNIQUE: One view of the chest was acquired. COMPARISON: None. FINDINGS: Surgical changes and devices: None. Lungs and pleura: Lungs are clear. No pleural effusions or pneumothorax. Mediastinum: Mediastinal contours appear normal. Heart size is normal. Bones and chest wall: No suspicious bony lesions. Overlying soft tissues appear unremarkable. IMPRESSION: No acute cardiopulmonary abnormality is seen. Dictated by: Melvin Ahn M.D. on 10/12/2024 at 12:22 CT scan - abdomen/pelvis: Radiologist's Impression: PROCEDURE: CT PEL WO CON INDICATIONS: severe left hip pain TECHNIQUE: Noncontrast 3 mm axial sections acquired through the bony pelvis, with coronal and sagittal reformatting. COMPARISON: [facility], CR, XR HIP W PEL IF DONE LT 2V, 10/12/2024, 11:27. [facility], CT, CT PEL WO CON, 06/18/2022, 13:34. FINDINGS: Image quality: Excellent. Bones: There is prior internal fixation of right proximal femur with surgical hardware in place. Acute slightly comminuted fracture involving mid shaft of left inferior pubic ramus is seen. No left femoral fracture or dislocation. No evidence of avascular necrosis of femoral heads. No suspicious intraosseous lesions. Soft tissues: There is mild soft tissue swelling surrounding left inferior pubic ramus fracture site. Asymmetric enlargement of left obturator externus muscle adjacent to the inferior pubic ramus likely represent intramuscular hematoma. No discrete soft tissue mass or drainable fluid collection. No pelvic free fluid or free air. No abnormal bowel wall thickening. Bladder wall thickness is normal. IMPRESSION: 1. Acute comminuted and minimally displaced fracture involving left inferior pubic ramus. 2. No other acute pelvic fracture or dislocation. Prior internal fixation of right proximal femur. Bilateral hip joint osteoarthritis. No evidence of avascular necrosis of femoral head. 3. Mild soft tissue swelling adjacent to left inferior pubic ramus fracture site with intramuscular hematoma involving adjacent left obturator externus muscle. No discrete drainable fluid collection or large soft tissue mass. No abnormal soft tissue calcifications. No pelvic free fluid or free air. Dictated by: Sb Castro M.D. on 10/12/2024 at 14:24 ECG Data Attestation: I personally reviewed and interpreted this ECG as follows: Prior ECG tracings: not available for review Interpretation: Sinus rhythm rate 65 MN interval 200 QRS 84 QTC 4 MDM Narrative Medical decision making narrative: Patient 89-year-old female who lives alone but has a intermittent caretakers presents today as a ground level fall left hip pain. Found to have inferior rami fracture on CT. X-ray did did show possible rami fracture. Blood work has been reviewed CBC no significant leukocytosis WBC 10 no anemia CMP no significant electrolyte abnormality no RENA calcium is noted to be 10.8 Troponin negative Bilirubin liver enzymes within normal limits Imaging reviewed as above EKGs reviewed sinus rhythm Dr. Torre, updated on imaging recommends weight-bearing as tolerated can admit to the hospitalist if they need ortho consult she was happy to do so. Patient initially ordered morphine however she refused morphine. Attempted an ambulation trial unsuccessful. She then did agree to a [place] and again attempted ambulation trial unsuccessful. Dr. Borden accepts to observation I did call and speak with Greg patient's son updated him on plan of care. He agrees that she may need rehab in long-term care arrangements. Of note he and his has extremely poor cell phone service but gave appropriate numbers which have been updated in chart Discharge Plan Departure Patient Disposition: Admitted as Observation Clinical Impression: Closed fracture of left inferior pubic ramus Admit Date/Time: 10/12/24 16:58 Admit Provider: Henrry Borden
[2024-10-12] MEDS: HYDROCODONE/ACET 5/325 TABLET 1 TAB PO (16:09)
--- NOTE | 2024-10-12 18:11 | PC.ADMIT ---
[address] Admission Note: Patient arrived to room 229 at approximately 1740 via emergency dept stretcher. A&Ox4, hard of hearing. Caregiver Crystal at bedside. Pt denies pain, able to move in bed without assistance or pain. Declines taking personal clothing off for skin check until home pajamas are brought in by caregiver. Pt oriented to room, call light, routine for care, and bed. Call light within reach, bed alarm active, care ongoing. The patient,Christian Villagran,89 y/o, was given written information regarding hospital policies, unit procedures and contact persons. Patient's smoking status: Never smoker. Vital Signs - 8 hr 10/12/24 11:19 10/12/24 11:20 10/12/24 11:39 Temperature 98 F Pulse Rate 70 70 67 Respiratory Rate 18 Blood Pressure 192/77 H Pulse Oximetry 98 97 97 Oxygen Delivery Method Room Air Oxygen Flow Rate 10/12/24 11:40 10/12/24 11:40 10/12/24 11:45 Temperature Pulse Rate 66 66 Respiratory Rate Blood Pressure 182/78 H Pulse Oximetry 98 99 Oxygen Delivery Method Oxygen Flow Rate 10/12/24 11:45 10/12/24 12:00 10/12/24 12:00 Temperature Pulse Rate 67 Respiratory Rate 28 H Blood Pressure 171/77 H 160/74 H Pulse Oximetry 94 Oxygen Delivery Method Oxygen Flow Rate 10/12/24 12:30 10/12/24 12:36 10/12/24 12:36 Temperature Pulse Rate 63 65 Respiratory Rate 15 19 Blood Pressure 150/69 H Pulse Oximetry 98 97 Oxygen Delivery Method Oxygen Flow Rate 10/12/24 13:04 10/12/24 13:30 10/12/24 13:58 Temperature Pulse Rate 77 58 L 65 Respiratory Rate 22 19 18 Blood Pressure Pulse Oximetry 97 96 Oxygen Delivery Method Room Air Oxygen Flow Rate 10/12/24 13:58 10/12/24 14:00 10/12/24 14:00 Temperature Pulse Rate 65 Respiratory Rate Blood Pressure 175/69 H 140/70 Pulse Oximetry Oxygen Delivery Method Oxygen Flow Rate 10/12/24 14:30 10/12/24 14:30 10/12/24 15:00 Temperature Pulse Rate 67 64 Respiratory Rate 22 21 Blood Pressure 151/66 H Pulse Oximetry 92 92 Oxygen Delivery Method Oxygen Flow Rate 10/12/24 15:00 10/12/24 15:30 10/12/24 15:30 Temperature Pulse Rate 62 Respiratory Rate 20 Blood Pressure 146/65 H 161/67 H Pulse Oximetry 94 Oxygen Delivery Method Oxygen Flow Rate 10/12/24 16:00 10/12/24 16:00 10/12/24 16:29 Temperature Pulse Rate 59 L Respiratory Rate 17 Blood Pressure 177/72 H 168/77 H Pulse Oximetry 100 Oxygen Delivery Method Oxygen Flow Rate 10/12/24 16:29 10/12/24 16:30 10/12/24 17:45 Temperature Pulse Rate 67 69 Respiratory Rate 18 18 Blood Pressure Pulse Oximetry 98 98 98 Oxygen Delivery Method Room Air Oxygen Flow Rate 0 10/12/24 17:53 10/12/24 18:08 Temperature 98.0 F Pulse Rate 64 Respiratory Rate 16 Blood Pressure 157/66 H Pulse Oximetry 94 Oxygen Delivery Method Room Air Oxygen Flow Rate 0
--- NOTE | 2024-10-12 18:22 | P.HP_ITS ---
History of Present Illness History of Present Illness Date Patient Seen: 10/12/24 Time Patient Seen: 18:22 Chief complaint: GLF Narrative: 89 F with PMH of depression and HTN and prior femur/hip fracture who presents after a mechanical ground level fall. She fell onto her left side. Workup in the ER showed a mildly displaced left pubic ramus fracture and intramuscular hematoma. She was unable to tolerate ambulation after oral pain medications. Imaging also showed a left intramuscular hematoma. She has no complaint of pain at rest, only with movement. No recent dizziness, fever, chills, abdominal pain, nausea, vomiting, or dysuria. [facility] Social History household members: none Smoking Status: Never smoker alcohol intake: never Meds Home Medications and Allergies Home Medications Medication Instructions Recorded Confirmed Type olmesartan 40 mg tablet 40 mg PO DAILY 06/18/22 10/12/24 History sertraline 25 mg tablet 25 mg PO DAILY 06/18/22 10/12/24 History acetaminophen 325 mg tablet 650 mg (2 x 325 mg) PO Q6H PRN 06/22/22 10/12/24 Rx Fever/Mild Pain (1-3) #30 tabs bisacodyl 10 mg rectal suppository 10 mg SC DAILY PRN Constipation 06/22/22 10/12/24 Rx #12 ea polyethylene glycol 3350 17 gram 17 g PO DAILY PRN Constipation #14 06/22/22 10/12/24 Rx oral powder packet ea calcium 600 mg (as 1 tab PO DAILY 10/12/24 10/12/24 History carbonate)-vitamin D3 5 mcg (200 unit) tablet gabapentin 100 mg tablet 100 mg PO PRN PRN NERVE PAIN 10/12/24 10/12/24 History sennosides 8.6 mg tablet (senna) 8.6 mg PO BID PRN Constipation 10/12/24 10/12/24 History turmeric 1 cap PO DAILY 10/12/24 10/12/24 History Allergies Allergy/AdvReac Type Severity Reaction Status Date / Time dihydroergotamine Allergy Verified 06/18/22 12:41 Review of Systems Review of Systems Narrative: All other systems reviewed with the patient and are negative unless otherwise stated. Exam Vital Signs (past 8 hours): - 10/12/24 11:19 10/12/24 11:20 10/12/24 11:39 Temperature 98 F Pulse Rate 70 70 67 Respiratory Rate 18 Blood Pressure 192/77 H Pulse Oximetry 98 97 97 Oxygen Delivery Method Room Air Oxygen Flow Rate 10/12/24 11:40 10/12/24 11:40 10/12/24 11:45 Temperature Pulse Rate 66 66 Respiratory Rate Blood Pressure 182/78 H Pulse Oximetry 98 99 Oxygen Delivery Method Oxygen Flow Rate 10/12/24 11:45 10/12/24 12:00 10/12/24 12:00 Temperature Pulse Rate 67 Respiratory Rate 28 H Blood Pressure 171/77 H 160/74 H Pulse Oximetry 94 Oxygen Delivery Method Oxygen Flow Rate 10/12/24 12:30 10/12/24 12:36 10/12/24 12:36 Temperature Pulse Rate 63 65 Respiratory Rate 15 19 Blood Pressure 150/69 H Pulse Oximetry 98 97 Oxygen Delivery Method Oxygen Flow Rate 10/12/24 13:04 10/12/24 13:30 10/12/24 13:58 Temperature Pulse Rate 77 58 L 65 Respiratory Rate 22 19 18 Blood Pressure Pulse Oximetry 97 96 Oxygen Delivery Method Room Air Oxygen Flow Rate 10/12/24 13:58 10/12/24 14:00 10/12/24 14:00 Temperature Pulse Rate 65 Respiratory Rate Blood Pressure 175/69 H 140/70 Pulse Oximetry Oxygen Delivery Method Oxygen Flow Rate 10/12/24 14:30 10/12/24 14:30 10/12/24 15:00 Temperature Pulse Rate 67 64 Respiratory Rate 22 21 Blood Pressure 151/66 H Pulse Oximetry 92 92 Oxygen Delivery Method Oxygen Flow Rate 10/12/24 15:00 10/12/24 15:30 10/12/24 15:30 Temperature Pulse Rate 62 Respiratory Rate 20 Blood Pressure 146/65 H 161/67 H Pulse Oximetry 94 Oxygen Delivery Method Oxygen Flow Rate 10/12/24 16:00 10/12/24 16:00 10/12/24 16:29 Temperature Pulse Rate 59 L Respiratory Rate 17 Blood Pressure 177/72 H 168/77 H Pulse Oximetry 100 Oxygen Delivery Method Oxygen Flow Rate 10/12/24 16:29 10/12/24 16:30 10/12/24 17:45 Temperature Pulse Rate 67 69 Respiratory Rate 18 18 Blood Pressure Pulse Oximetry 98 98 98 Oxygen Delivery Method Room Air Oxygen Flow Rate 0 10/12/24 17:53 10/12/24 18:08 Temperature 98.0 F Pulse Rate 64 Respiratory Rate 16 Blood Pressure 157/66 H Pulse Oximetry 94 Oxygen Delivery Method Room Air Oxygen Flow Rate 0 Oxygen Delivery Method Room Air Oxygen Flow Rate 0 Narrative Exam Narrative: GEN: no acute distress, elderly woman who appears younger than stated age HEENT: moist mucous membranes, PERRL NECK: trachea midline, no JVD CV: regular rate and rhythm, no murmurs PULM: clear bilaterally ABD: soft, nontender, nondistended, no organomegaly EXT: no edema NEURO: awake, alert, oriented, no focal deficits Objective ECG Impression: Normal sinus rhythm Incomplete right bundle branch block Left anterior fascicular block, no acute ischemia Imaging CT scan - pelvis: Radiologist's impression: 1. Acute comminuted and minimally displaced fracture involving left inferior pubic ramus. 2. No other acute pelvic fracture or dislocation. Prior internal fixation of right proximal femur. Bilateral hip joint osteoarthritis. No evidence of avascular necrosis of femoral head. 3. Mild soft tissue swelling adjacent to left inferior pubic ramus fracture site with intramuscular hematoma involving adjacent left obturator externus muscle. No discrete drainable fluid collection or large soft tissue mass. No abnormal soft tissue calcifications. No pelvic free fluid or free air. Labs 10/12/24 11:53 10/12/24 11:53 Labs: Laboratory Results - last 24 hr 10/12/24 11:53 WBC 10.0 RBC 3.75 L Hgb 12.2 Hct 35.9 L MCV 95.7 MCH 32.4 MCHC 33.8 RDW 15.0 H Plt Count 215 Neut % (Auto) 80.7 H Lymph % (Auto) 13.2 L Hooker % (Auto) 5.2 Eos % (Auto) 0.6 L Baso % (Auto) 0.3 Neut # (Auto) 8100 H Lymph # (Auto) 1300 Hooker # (Auto) 500 Eos # (Auto) 100 Baso # (Auto) 0 PT 10.8 INR 1.0 Sodium 140 Potassium 4.1 Chloride 108 H Carbon Dioxide 23 BUN 25 H Creatinine 0.75 Estimated GFR > 60 BUN/Creatinine Ratio 33.3 H Glucose 99 Lactate 1.0 Calcium 10.8 H Total Bilirubin 0.7 AST 41 H ALT 26 Alkaline Phosphatase 69 Troponin I < 0.012 NT-Pro-B Natriuret Pep 174 Total Protein 7.3 Albumin 4.5 Globulin 2.8 Albumin/Globulin Ratio 1.6 Assessment & Plan Assessment & Plan narrative: 1. Left pubic ramus fracture. - WBAT, pain control, PT/OT ordered - continue tylenol, home gabapentin 100 mg BID, and add oxycodone with muscle relaxant as well. 2. Left obturator externus hematoma, acute, present on admission - trend h/h, goal Hg .>7 3. HTN - continue home ARB, replace olmesartan with losartan 4. Depression - continue home sertraline Code: Full, surrogate is patient's Son DVT: SCDs for now until h/h stable given hematoma. I have utilized all available immediate resources to obtain, update, or review the patient's current medications. Dispo: patient admitted under observation status. Unclear if will be able to discharge home or possible SNF, will have PT/OT evaluations. Additional history obtained via discussions with the ER provider. These discussions contributed to the creation of the above assessment and plan. I have reviewed patient's presenting documentation, labs, and imaging personally. Time-Based Coding :: [TOTAL MINUTES] spent with patient and on the chart (including review of chart, obtaining history, exam, reviewing outside data, placing orders, documenting exam and treatment plan, and counseling patient) on [DATE].
[2024-10-12] MEDS: SODIUM CHLORIDE 0.9% 1,000 ML 75 ML IV (20:20)
[2024-10-12] MEDS: GABAPENTIN 100 MG CAPSULE PO (20:20)
[2024-10-13] VITALS (8 sets, daily range): BP systolic 124–165; BP diastolic 58–78; PULSE 64–76; RESP 14–18; TEMP 36.2–36.9; O2SAT 95–99
[2024-10-13] MEDS: ACETAMINOPHEN 325 MG TABLET 650 MG PO ×2 (04:07→20:04)
[2024-10-13 05:08] LABS: Add Manual Diff / Slide Review NO; Basophils Absolute Auto 0 /uL (0-100); Basophils Percent Auto 0.5 % (0-2); Eosinophils Absolute Auto 100 /uL (0-450); Eosinophils Percent Auto 2.2 % (2-4); Hematocrit 34.3 % (36-46); Hemoglobin 11.6 g/dL (12.0-16.0); Lymphocytes Absolute Auto 1400 /uL (1100-4500); Lymphocytes Percent Auto 24.2 % (25-40); Mean Corpuscular HGB Conc 33.8 % (30-36); Mean Corpuscular Hemoglobin 32.6 PG (26-34); Mean Corpuscular Volume 96.3 fL (80-100); Monocytes Absolute Auto 500 /uL (0-900); Monocytes Percent Auto 8.3 % (3-14); Neutrophils Absolute Auto 3700 /uL (1500-7000); Neutrophils Percent Auto 64.8 % (50-75); Platelet Count 194 X10^3/uL (150-400); Red Blood Cell Count 3.56 X10^6/uL (4.0-5.2); Red Cell Distribution Width 15.1 % (11.6-14.8); White Blood Cell Count 5.7 X10^3/uL (4.5-11.0)
[2024-10-13 05:23] LABS: BUN Creatinine Ratio 32.9 (6-22); Blood Urea Nitrogen 26 mg/dL (7-17); Calcium 10.1 mg/dL (8.4-10.2); Carbon Dioxide 23 mmol/L (22-32); Chloride 108 mmol/L (98-107); Estimated Glomerular Filt Rate > 60 mL/min (>60); Glucose 114 mg/dL (80-110); HEMOLYSIS < 15 (0-50); Potassium 4.3 mmol/L (3.4-5.1); Sodium 139 mmol/L (137-145)
--- NOTE | 2024-10-13 07:12 | PC.NURSE ---
Pt rested comfortably in bed through night, c/o headache, resolved by Tylenol (see MAR). Able to stand and shuffle/pivot to commode w/fww, unable to weight-bear on LLE.
[2024-10-13] MEDS: SERTRALINE 50 MG TABLET 25 MG PO (08:42)
[2024-10-13] MEDS: GABAPENTIN 100 MG CAPSULE PO ×2 (08:42→20:04)
[2024-10-13] MEDS: LOSARTAN 50 MG TABLET 100 MG PO (08:42)
[2024-10-13] MEDS: SODIUM CHLORIDE 0.9% 1,000 ML 75 ML IV (08:44)
--- NOTE | 2024-10-13 11:20 | PT.IIE ---
Physical Therapy Inpatient Evaluation/Re-Eval M1 PT/OT-IP Prior Functional Status Start: 10/13/24 13:13 Freq: NEEDED Status: Active Protocol: Document 10/13/24 11:20 AB (Rec: 10/13/24 13:28 AB [id number]) Medical Review Prior Functional Status Medical History Reviewed Yes Communication able to make needs known; [place] Mobility and Gait pt stated that she was modified independent with all mobilities and ambulation using a 4WW but tends to furniture cruise; caregiver provided most of pt's PLOF and home set up: stated that she has to remind pt to use 4WW Social History Household Members none Living Arrangements House Number of Floors (Floors) One Floor Number of Stairs To Enter/Railing? ramp to enter Home Environment Standard Height Toilet,Walk in Shower,Tub/Shower Doors,Ramp Home Equipment Four Wheel Walker,Raised Toilet Seat w/Armrests,Shower Seat with Backrest,Hand Held Shower Additional Social History Comment pt has a caregiver that comes in ~ 2x/wk for ~ 6 hours to assist pt M2 PT-IP Current Condition Start: 10/13/24 13:13 Freq: NEEDED Status: Active Protocol: Document 10/13/24 11:20 AB (Rec: 10/13/24 13:28 [id number]) Physical Therapy Current Condition Current Condition Evaluation Date 10/13/24 Treatment Diagnosis s/p fall; L pubic ramus fx; difficulty in walking Onset Date 10/12/24 M3 PT-IP Subjective Start: 10/13/24 13:13 Freq: NEEDED Status: Active Protocol: Document 10/13/24 11:20 AB (Rec: 10/13/24 13:28 [id number]) Subjective Physical Therapy Visit Type Type Initial Evaluation Visit Start Time 11:20 Visit Stop Time 12:05 Number of RAD TECH Visits 0 Physical Therapy Visit Comments Patient Comments agreeable to do PT Therapy Pain Assessment Pain When Pain Assessed During Mobility Pain Present Pain Present Pain Reported Location Left hip Scale Used pain scale not stated Pain Behaviors Facial Grimacing,Guarding, Holding Area,Wincing Pain Management Techniques Distraction,Modification of Treatment,Re-positioning, Timing of Activity with Medications M4 PT-IP Mobility and Gait Start: 10/13/24 13:13 Freq: NEEDED Status: Active Protocol: Document 10/13/24 11:20 AB (Rec: 10/13/24 13:28 AB [id number]) PT-Bed Mobility Assessment Supine to Sit Supine to Sit Standby Assistance,Bedrails Sit to Supine Sit to Supine Standby Assistance,Bedrails PT-Transfer Assessment Sit to and From Stand Sit to and from Stand Moderate Assistance,1 Person Assistance,Use of Upper Extremities Equipment Transfer Assistive Device Gait Belt,Front Wheeled Walker Orthotic/Prosthetic Devices or Brace: No Transfers Transfer Destination Chair Transfer Technique Stand Step Pivot Transfer Ability Level of Assist Maximum Assistance,1 Person Assistance,Use of Upper Extremities Comments Mobility Comments pt sitting on the chair. caregiver in room. obtained PLOF and home set up from pt and caregiver. sit to stand from chair mod A and cues and ambulated ~ 2 ft using fWW max A and cues. pt needed to sit down and assisted to EOB. max A for controlled descent. pt completed bed mobility SBA using bed rail to assist. sit to stand from EOB mod A and cues and step transfer to chair using fWW max A and max cues. positioned pt on the chair. call light and table placed within reach. Gait Assessment Gait Gait Assistance Required: Maximum Assistance Distance (Feet) 2 Able to Maintain Weight Bearing Status Yes During Gait Assistive Devices Assistive Device Gait Belt,Front Wheeled Walker Orthotic/Prosthetic Devices or Brace: No Gait Deviations General Gait Pattern Antalgic,Decreased Stride Length,Decreased Feet Clearance,Step-to Gait Factors Limiting Gait Function Factors Limiting Gait Function Decreased Activity Tolerance, Decreased Strength,Difficulty Following Directions,Limited Range of Motion,Pain,Poor Balance,Poor Safety Awareness PT-Balance Assessment Sitting Balance and Reactions Static Sitting Balance Ability Good Dynamic Sitting Balance Ability Fair Standing Balance and Reactions Static Standing Balance Ability Poor Dynamic Standing Balance Ability Poor Device Used FWW M5 PT-IP Objective Assessments Start: 10/13/24 13:13 Freq: NEEDED Status: Active Protocol: Document 10/13/24 11:20 AB (Rec: 10/13/24 13:28 AB [id number]) Orientation Orientation/Cognition Level of Alertness Alert Orientation Name,Place,Situation Language Function Ability Hard of Hearing Safety Awareness Decreased Safety Awareness Memory Description Short Term Impaired Gross Range of Motion Lower Extremity ROM Assessment Within Functional Limits Strength Lower Extremity Strength Assessment Left Impaired Hip 3-/5 Knee 3+/5 Muscle Tone Muscle Tone WNL Yes M6 PT-IP Treatment Start: 10/13/24 13:13 Freq: NEEDED Status: Active Protocol: Document 10/13/24 11:20 AB (Rec: 10/13/24 13:28 AB [id number]) Physical Therapy Treatment Education Education Provided Safety M7 PT-IP Assessment and Plan Start: 10/13/24 13:13 Freq: NEEDED Status: Active Protocol: Document 10/13/24 11:20 AB (Rec: 10/13/24 13:28 AB [id number]) PT Summary Assessment and Plan Potential Rehabilitation Potential Fair Status of Condition at Evaluation Evolving Summary Impairments Pain,ROM,Strength,Balance, Coordination,Sensation,Tone, Cognition,Bed Mobility, Transfers,Gait,Activity Tolerance Assessment Summary pt is an 89 y/o F who is admitted L inferior pubic ramus fx after a fall. pt is wBAT on LLE. pt requiring mod A for sit to stand and max A for transfers and ambulation using FWW. pt only able to ambulate ~ 2 ft using fWW max A with c/o increase L buttock pain with weight bearing. pt will require SNF rehab to improve overall strength and function. Goals Bed Mobility Goal Independent Transfer Goal Standby Assistance,Front Wheeled Walker Gait Goal Standby Assistance,Front Wheel Walker Gait Distance 50 Other Goals improve transfers, ambulation using FWW/4WW ~ 100 ft SBA Days to Meet Goals 10 Frequency of Treatment Frequency Of Treatment Once a Day Treatment Plan Physical Therapy Treatment Plan Bed Mobility Training,Transfer Training,Gait Training, Therapeutic Exercise,Balance Retraining,Discharge Planning, Hot or Cold Pack,Neuromuscular Re-ed,Coordination Retraining ,Manual Therapy Precautions Other Precautions falls Weight Bearing Status Weight Bearing Status Weight Bear as Tolerated Allowed Weight Bearing Amount (enter % LLE WBAT or #) (%) Recommendations To Nursing Amount of Assist Needed 1 Person Assist Discharge Recommendations PT Discharge Recommendations SNF Rehab Transportation Needs at Discharge Private Vehicle - PT assist 1
--- NOTE | 2024-10-13 12:53 | CM.DANOTE ---
Addendum entered by RADHA Echavarria 10/13/24 16:12: DCP Updated: Per PT/OT evaluations, pt is being recommended for SNF Rehab before dc home. DCP spoke with pt's [id number], Michelle, who is agreeable with plans for SNF Rehab referrals at this time. DCP discussed process especially with pt insurance, pt [id number] still in agreement with referral process. Per [id number] and pt, preference is for a SNF in [facility] (most preference for [place] or even [place]), request for NO SNF in [place] or to coordinate with pt daughter, Racheal (not listed in chart). DCP forwarded Medicare certified facilities in [facility] for pt [id number] and son to review, will return with top preferences for referral. Plan: Referral to SNF Rehab, pending facility preferences. CM team to follow for SNF dc plans. JONES Simental Original Note: DCP Assessment Note: Pt is a 89yo female, resident of [place], is admitted s/p GLF. Pt lives in a house alone, she has a caregiver who currently sees her a few times a week but has now been increased to Wednesday-Wednesday, [phone]. Pt's POA is sonGreg who lives in [place], [place]. Pt's Primary Care Provider is Dr. Henrry Lizarraga and insurance is [employer] and Commercial Insurance. Reviewed chart and discussed with multidisciplinary team pt's medical status and initial discharge needs. DCP met w/patient at bedside; introduced self and role. Patient was found in bed, alert and oriented, cooperative with assessment. Pt confirmed living situation and good support in caregiver. Pt expressed preference in discharge home with increased caregiver hours (24/) and home health ([facility] preference) vs. going to a SNF Rehab for a few weeks that is near son ([facility]). Pt presents strong preference for NO SNF in [place], she had a previous experience where she attended Rehab in [place] and her daughter visited her a lot (caused some emotional distress, negative relationship). Pt has a hx of working with [facility]. Plan: Awaiting PT/OT evaluations and recommendation for evolving discharge plans. CM team will follow closely for coordination of discharge plans. JONES Simental Discharge Planning/Care Management CM Discharge Assessment Start: 10/13/24 12:48 Freq: Status: Active Protocol: Document 10/13/24 12:48 MW (Rec: 10/13/24 12:53 MW [id number]) Discharge Planning Assessment Assigned Energy Consultant RADHA Miller DPOA/Assigned Designee Name Dereck Garza ([place], [place]) Contact Information [phone] Advance Directives? No History Provided By Patient,Family Member,Medical Record Has Patient been admitted in last 30 No days? Prior Living Arrangements House Household Members none Type of transporation used prior to Drives own vehicle admit Independent with ADL's Yes Is patient alert and oriented? No: Some mild cognition issues , no formal diagnosis Needs Assistance With Bathing,Meal Prep,Toileting, Managing Medications,Home Chores / Shopping Caregiver for Another No DME Already Rented / Owned Elevated Toilet Seat,FWW / Walker Comment Preference for home with home health and private caregivers vs. SNF Rehab until stronger again. Barriers to Discharge No Discharge Plan Home with Home Health Transportation Arrangement Caregivers vs. facility Referrals Initiated [facility]it[facility] Whiteboard Updated in Patient Room with Yes name and ext. # of Energy Consultant Comment [phone] Review Status In Process Please Provide Date Initial DC 10/13/24 Assessment Was Performed Next Review Type Continued Stay Review
--- NOTE | 2024-10-13 15:41 | OT.IP.EVAL ---
Occupational Therapy Inpatient Evaluation/Re-Eval M1 PT/OT-IP Prior Functional Status Start: 10/13/24 13:13 Freq: NEEDED Status: Active Protocol: Document 10/13/24 15:23 [facility] (Rec: 10/13/24 15:41 [facility] [id number]) Medical Review Prior Functional Status Medical History Reviewed Yes Communication able to make needs known; LOWER ELWHA Mobility and Gait pt stated that she was modified independent with all mobilities and ambulation using a 4WW but tends to furniture cruise; caregiver provided most of pt's PLOF and home set up: stated that she has to remind pt to use 4WW Activities of Daily Living and IADL's Pt states has caregiver assist 6hr- 2x/week. Pt states able to do ADL on her own and caregiver assist with IADL needs. Social History Household Members none Living Arrangements House Number of Stairs To Enter/Railing? ramp to enter Home Environment Standard Height Toilet,Walk in Shower,Tub/Shower Doors,Ramp Home Equipment Four Wheel Walker,Raised Toilet Seat w/Armrests,Shower Seat with Backrest,Hand Held Shower M2 OT-IP Current Condition Start: 10/13/24 15:23 Freq: Status: Active Protocol: Document 10/13/24 15:23 [facility] (Rec: 10/13/24 15:41 [facility] [id number]) Occupational Therapy Current Condition Current Condition Evaluation Date 10/13/24 Treatment Diagnosis Left pubic ramus fx Diagnosis Onset Date 10/12/24 Weight Bearing Status Weight Bearing Status Weight Bear as Tolerated Allowed Weight Bearing Amount (enter % Per hospitalist pt to be WBAT. or #) (%) M3 OT- IP Subjective and Pain Start: 10/13/24 15:23 Freq: Status: Active Protocol: Document 10/13/24 15:23 [facility] (Rec: 10/13/24 15:41 [facility] [id number]) OT- Subjective Occupational Therapy Visit Type Type Initial Evaluation Visit Start Time 13:03 Visit Stop Time 13:58 Occupational Therapy Visit Comments Patient Comments Pt agreed to get up and wanting to use the toilet. Patient/Caregiver Goals To get better. 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 OT ADL-Grooming General Evaluation Grooming Ability Standby Assistance Comments OT Grooming Comments While seated. OT ADL-Oral Care General Eval Oral Care Ability Independent OT ADL-Dressing General Eval Lower Body Dressing Ability Maximum Assistance Areas Needing Assistance Socks OT ADL-Toileting General Evaluation Toileting Ability Minimal Assistance Areas Needing Assistance Manage Clothing Comments OT Toileting Comments Assist with gown management needs and LUCIANO while standing to wipe from the toilet. OT ADL-Bathing Comments OT Bathing Comments Pt will need assist. M5 OT- IP IADL's Start: 10/13/24 15:23 Freq: Status: Active Protocol: Document 10/13/24 15:23 [facility] (Rec: 10/13/24 15:41 [facility] [id number]) OT-Instrumental Activities of Daily Living Home Safety Awareness Awareness of Need for Assistance at Home Good Awareness Ability to Problem Solve Emergency Able to Problem Solve Situations Medication Management Medication Management Caregiver Provides Supervision Medication Management Comments Caregiver assist with set-up of meds. Money Management Money Management Caregiver Provides Assistance Money Management Comments Caregiver signs check due to decreased hand writing from CTS. Meal Preparation Meal Preparation Caregiver Provides Assist Water Chaser Water Chaser Caregiver Provides Assist Driving Driving Comments Pt states still able to drive short distances. M6 OT- IP Functional Cognition Start: 10/13/24 15:23 Freq: Status: Active Protocol: Document 10/13/24 15:23 [facility] (Rec: 10/13/24 15:41 [facility] [id number]) Cognitive Factors Limiting Selfcare Function Cognitive Ability Level of Alertness Alert Patient Orientation Name,Age,Birthday,Month,Date, Year,Day of Week,Place, Situation Attention Span Ability Capable of Focused Attention, Capable of Sustained Attention Ability to Follow Commands Able to Follow One Step Commands Memory Description Short Term Impaired Safety Awareness Underestimates Need for Assistance Cognitive Tests SLUMS Pt's primary language is E[place]. Pt admits that she is not thinking as clearly as she usually does. Pt states has to write everything down due to her poor STM. Pt scored 22/ 30 which implies mild neurocognitive deficits. Pt able to recall 10 animal in one minute, able to recall 3/5 objects after time passed, not able to recite 4 digit number backwards, and able to answer 2/4 questions right after paragraph read. Cognitive Comments Cognitive Assessment Comments Pt needing increased time to complete SLUMS. Pt needing MAX vc for safety with use of 4ww and forgetting to lock it when using it. Pt also insistent on sitting on the 4ww to roll closer to the toilet and then stand to transfer. OT- Vision and Hearing OT- Hearing Assessment OT- Hearing Assessment WFL OT- Vision Assessment Visual Acuity Glasses All The Time Visual Attentiveness WFL Occular Pursuits WFL M7 OT- IP Mobility and Balance Start: 10/13/24 15:23 Freq: Status: Active Protocol: Document 10/13/24 15:23 [facility] (Rec: 10/13/24 15:41 [facility] [id number]) OT- Bed Mobility Assessment Sit to Supine Sit to Supine Assist Moderate Assistance OT-Transfer Assessment Sit to and From Stand Sit to and from Stand Moderate Assistance Transfers Transfer Ability Moderate Assistance,Maximum Assistance Technique Transfer Destination Bed,Chair,Toilet Transfer Technique Stand Step Pivot Devices Transfer Assistive Devices Gait Belt,4 Wheeled Walker Comments Mobility Comments Able to observe how pt uses the 4ww as she is insistent that she can transfer and then roll in to the bathroom. Pt needing MAX AX 1 to hold the 4ww in place and assist with pt's balance while shuffling her left foot side to side to sit to the 4ww. Pt very unsteady and not safe on the 4ww and trying to stand without it locked. Suggested best to have wc in the house for transfers with assist. OT- Balance Assessment Sitting Balance and Reactions Static Sitting Balance Ability Good Dynamic Sitting Balance Ability Good Standing Balance and Reactions Static Standing Balance Ability Fair Dynamic Standing Balance Ability Poor M8 OT- IP Objective Assessments Start: 10/13/24 15:23 Freq: Status: Active Protocol: Document 10/13/24 15:23 [facility] (Rec: 10/13/24 15:41 [facility] [id number]) OT Gross Range of Motion Upper Extremity Range of Motion ROM Impairments Decreased at end ROM OT Strength Comments Strength Comments BUE 4/5 OT- Coordination Assessment Comments Coordination Comments Arthritic changes to hands. M9 OT- IP Assessment and Plan Start: 10/13/24 15:23 Freq: Status: Active Protocol: Document 10/13/24 15:23 [facility] (Rec: 10/13/24 15:41 [facility] [id number]) OT Summary Assessment and Plan Potential Rehabilitation Potential Good Analytic Complexity at Evaluation Moderate Summary OT Impairments Pain,Balance,Functional Cognition,Functional Mobility, Self-Feeding,Grooming,Dressing ,Toileting,Bathing,Toilet Transfers,Shower Transfers, Activity Tolerance Progress Towards Goals Progressing Toward Goals Assessment Summary Pt mod complexity and main barriers are pain, decreased safety awareness, and decreased activity tolerance. Pt needing MAX AX 1 for assist for transfers at this time and just able to move her left foot side to side. Pt will benefit from skilled rehab prior to going home. Goals Self-Feeding Goal Independent Grooming Goal Independent Dressing Goal Independent Toileting Goal Independent Bathing Goal Standby Assistance Toilet Transfer Goal Independent Shower Transfer Goal Standby Assistance Days to Meet Goals 20 Frequency of Treatment Other frequency 3-5x/week Treatment Plan OT Treatment Plan ADL Training,Functional Cognition Training,Functional Mobility,Patient/Family Education,Discharge Planning Discharge Recommendations OT Discharge Recommendations SNF Rehab Transportation Needs at Discharge Wheelchair/Cabulance
--- NOTE | 2024-10-13 16:42 | P.PN_ITS ---
Subjective Subjective Interval history: 89 F admitted for pubic ramus fracture. Still severe pain with walking. Otherwise pain is okay at rest. No other complaints. PT/OT recommendations for SNF. Exam Vital Signs (past 8 hours): - 10/13/24 12:00 10/13/24 12:00 10/13/24 16:34 Temperature 97.2 F L Pulse Rate 76 73 Respiratory Rate 14 15 Blood Pressure 154/67 H 131/60 Pulse Oximetry 97 97 96 Oxygen Delivery Method Room Air Oxygen Flow Rate 0 0 Oxygen Delivery Method Room Air Oxygen Flow Rate 0 Narrative Exam Narrative: GEN: no acute distress, elderly woman who appears younger than stated age HEENT: moist mucous membranes, PERRL NECK: trachea midline, no JVD CV: regular rate and rhythm, no murmurs PULM: clear bilaterally ABD: soft, nontender, nondistended, no organomegaly EXT: no edema NEURO: awake, alert, oriented, no focal deficits Objective Labs 10/13/24 04:12 10/13/24 04:12 Labs: Laboratory Results - last 24 hr 10/13/24 04:12 WBC 5.7 RBC 3.56 L Hgb 11.6 L Hct 34.3 L MCV 96.3 MCH 32.6 MCHC 33.8 RDW 15.1 H Plt Count 194 Neut % (Auto) 64.8 Lymph % (Auto) 24.2 L [place] % (Auto) 8.3 Eos % (Auto) 2.2 Baso % (Auto) 0.5 Neut # (Auto) 3700 Lymph # (Auto) 1400 [place] # (Auto) 500 Eos # (Auto) 100 Baso # (Auto) 0 Sodium 139 Potassium 4.3 Chloride 108 H Carbon Dioxide 23 BUN 26 H Creatinine 0.79 Estimated GFR > 60 BUN/Creatinine Ratio 32.9 H Glucose 114 H Calcium 10.1 Magnesium 2.0 PFSH Social History household members: none Smoking Status: Never smoker alcohol intake: never Assessment & Plan Assessment & Plan narrative: 1. Left pubic ramus fracture. - WBAT, pain control, PT/OT ordered - continue tylenol, home gabapentin 100 mg BID, and add norco with muscle relaxant as well. 2. Left obturator externus hematoma, acute, present on admission - trend h/h, goal Hg .>7 3. HTN - continue home ARB, replace olmesartan with losartan 4. Depression - continue home sertraline Code: Full, surrogate is patient's Son DVT: SCDs for now until h/h stable given hematoma. I have utilized all available immediate resources to obtain, update, or review the patient's current medications. Dispo: patient admitted under observation status. Likely discharge to SNF once bed is obtained. Additional history obtained via discussions with the child support case officer today. These discussions contributed to the creation of the above assessment and plan. I have reviewed patient's presenting documentation, labs, and imaging personally. Time-Based Coding :: [TOTAL MINUTES] spent with patient and on the chart (including review of chart, obtaining history, exam, reviewing outside data, placing orders, documenting exam and treatment plan, and counseling patient) on [DATE].
[2024-10-14] VITALS (7 sets, daily range): BP systolic 134–147; BP diastolic 54–67; PULSE 64–79; RESP 14–20; TEMP 36.4–36.9; O2SAT 96–100
[2024-10-14 05:24] LABS: Add Manual Diff / Slide Review NO; Basophils Absolute Auto 100 /uL (0-100); Basophils Percent Auto 1.8 % (0-2); Eosinophils Absolute Auto 200 /uL (0-450); Eosinophils Percent Auto 2.9 % (2-4); Hematocrit 31.9 % (36-46); Hemoglobin 10.8 g/dL (12.0-16.0); Lymphocytes Absolute Auto 1200 /uL (1100-4500); Lymphocytes Percent Auto 20.8 % (25-40); Mean Corpuscular HGB Conc 33.8 % (30-36); Mean Corpuscular Hemoglobin 32.6 PG (26-34); Mean Corpuscular Volume 96.4 fL (80-100); Monocytes Absolute Auto 400 /uL (0-900); Monocytes Percent Auto 6.8 % (3-14); Neutrophils Absolute Auto 3800 /uL (1500-7000); Neutrophils Percent Auto 67.7 % (50-75); Platelet Count 171 X10^3/uL (150-400); Red Cell Distribution Width 15.2 % (11.6-14.8); White Blood Cell Count 5.6 X10^3/uL (4.5-11.0)
[2024-10-14 05:35] LABS: BUN Creatinine Ratio 32.6 (6-22); Blood Urea Nitrogen 28 mg/dL (7-17); Calcium 9.8 mg/dL (8.4-10.2); Carbon Dioxide 20 mmol/L (22-32); Chloride 110 mmol/L (98-107); Estimated Glomerular Filt Rate > 60 mL/min (>60); Glucose 122 mg/dL (80-110); HEMOLYSIS < 15 (0-50); Magnesium 2.1 mg/dL (1.6-2.3); Potassium 4.4 mmol/L (3.4-5.1); Sodium 137 mmol/L (137-145)
[2024-10-14] MEDS: SERTRALINE 50 MG TABLET 25 MG PO (08:38)
[2024-10-14] MEDS: LOSARTAN 50 MG TABLET 100 MG PO (08:38)
[2024-10-14] MEDS: GABAPENTIN 100 MG CAPSULE PO ×2 (08:38→20:07)
--- NOTE | 2024-10-14 11:06 | PM.PN.IH.1 ---
Subjective Subjective Date Patient Seen: 10/14/24 Time Patient Seen: 08:20 Interval history: Narrative: 89 F with PMH of depression and HTN and prior femur/hip fracture who presents after a mechanical ground level fall. She fell onto her left side. Workup in the ER showed a mildly displaced left pubic ramus fracture and intramuscular hematoma. She was unable to tolerate ambulation after oral pain medications. Imaging also showed a left intramuscular hematoma. She has no complaint of pain at rest, only with movement. No recent dizziness, fever, chills, abdominal pain, nausea, vomiting, or dysuria. 10/13: 89 F admitted for pubic ramus fracture. Still severe pain with walking. Otherwise pain is okay at rest. No other complaints. PT/OT recommendations for SNF. 10/14: Patient states she is comfortable at rest but reports pain with walking short distances, and was unable to manage even short distances with physical therapy today. Exam Vital Signs (past 8 hours): - 10/14/24 05:00 10/14/24 05:00 10/14/24 07:00 Temperature Pulse Rate 68 Respiratory Rate 20 Blood Pressure 147/65 H Pulse Oximetry 96 96 Oxygen Delivery Method Room Air Room Air Oxygen Flow Rate 0 10/14/24 09:00 10/14/24 09:00 Temperature 97.5 F L Pulse Rate 69 Respiratory Rate 16 Blood Pressure 147/67 H Pulse Oximetry 98 98 Oxygen Delivery Method Room Air Oxygen Flow Rate 0 Oxygen Delivery Method Room Air Oxygen Flow Rate 0 Narrative Exam Narrative: GEN: no acute distress, elderly woman who appears younger than stated age HEENT: moist mucous membranes, PERRL NECK: trachea midline, no JVD CV: regular rate and rhythm, no murmurs PULM: clear bilaterally ABD: soft, nontender, nondistended, no organomegaly EXT: no edema NEURO: awake, alert, oriented, no focal deficits Objective ECG Impression: 10/13/2024: Normal sinus rhythm Incomplete right bundle branch block; Left anterior fascicular block Moderate voltage criteria for LVH, may be normal variant ( R in aVL , Mode product ) Imaging *: Radiologist's impression: 1. Hip xray 10/12/2024: Bilateral hip arthrosis. No definite acute displaced femoral neck fracture. No hip dislocation. Possible bony irregularity in the inferior left pubic ring. Consider CT to further evaluate given reported history. Right femur postsurgical changes, with fracture bridging. 2. Chest xray 10/12/2024: No acute cardiopulmonary abnormality is seen. 3. Pelvis CT 10/12/2024: 1. Acute comminuted and minimally displaced fracture involving left inferior pubic ramus. 2. No other acute pelvic fracture or dislocation. Prior internal fixation of right proximal femur. Bilateral hip joint osteoarthritis. No evidence of avascular necrosis of femoral head. 3. Mild soft tissue swelling adjacent to left inferior pubic ramus fracture site with intramuscular hematoma involving adjacent left obturator externus muscle. No discrete drainable fluid collection or large soft tissue mass. No abnormal soft tissue calcifications. No pelvic free fluid or free air. Labs 10/14/24 04:32 10/14/24 04:32 Labs: Laboratory Results - last 24 hr 10/14/24 04:32 WBC 5.6 RBC 3.30 L Hgb 10.8 L Hct 31.9 L MCV 96.4 MCH 32.6 MCHC 33.8 RDW 15.2 H Plt Count 171 Neut % (Auto) 67.7 Lymph % (Auto) 20.8 L [place] % (Auto) 6.8 Eos % (Auto) 2.9 Baso % (Auto) 1.8 Neut # (Auto) 3800 Lymph # (Auto) 1200 [place] # (Auto) 400 Eos # (Auto) 200 Baso # (Auto) 100 Sodium 137 Potassium 4.4 Chloride 110 H Carbon Dioxide 20 L BUN 28 H Creatinine 0.86 Estimated GFR > 60 BUN/Creatinine Ratio 32.6 H Glucose 122 H Calcium 9.8 Magnesium 2.1 PFSH Social History household members: none Smoking Status: Never smoker alcohol intake: never Assessment & Plan Assessment & Plan narrative: 1. Left pubic ramus fracture. - WBAT, pain control, PT/OT ordered - continue tylenol, home gabapentin 100 mg BID, not using hydrocodone. 2. Left obturator externus hematoma, acute, present on admission - stable h/h, goal Hg .>7 3. HTN - continue home ARB, replace olmesartan with losartan hospital formulary 4. Depression - continue home sertraline Code: Full, surrogate is patient's Son DVT: SCDs for now until h/h stable given hematoma. Dispo: patient admitted under observation status. Likely discharge to SNF once bed is obtained. Additional history obtained via discussions with the oil field caser today. These discussions contributed to the creation of the above assessment and plan. I have reviewed patient's presenting documentation, labs, and imaging personally. PROFEE Heating And Cooling Technician Document charge(s): No Charge Codes Subsequent inpatient/observation care: [id number]
--- NOTE | 2024-10-14 12:12 | CM.DPC ---
DCP SNF Planning: Per MD and RN, pt medically stable to d/c once SNF secured and auth obtained. Per family, these are preferred SNFs and SW attempted to reach out to them today: 1.? [facility] ([place]) [phone] * they only take their current residents in skilled nursing care for their [facility]. They are not an option at this time. 2. [facility] [phone] * phone only rang and rang with no option to leave voicemail.? Will keep trying and also try to find an alternate phone number. 3. [facility] [place] [phone] *left msg on their admissions cell phone and faxed referral, will have to wait to confirm they have openings and contracted with [facility] 4. [facility] ([place]) [phone] * they currently have a waitlist of 23 people and cannot review any new referrals at this time. SW inquired with family about either sending additional referrals to local [facility] SNFs as backup or a list of additional SNFs out of [facility] that can be called today. Waiting to hear back from family regarding additional referral preferences. PASRR still needed for SNF. RADHA Doe
--- NOTE | 2024-10-14 14:55 | PT.IPTN ---
Physical Therapy Treatment Note M2 PT-IP Current Condition Start: 10/13/24 13:13 Freq: NEEDED Status: Active Protocol: Document 10/13/24 11:20 AB (Rec: 10/13/24 13:28 AB [id number]) Physical Therapy Current Condition Current Condition Evaluation Date 10/13/24 Treatment Diagnosis s/p fall; L pubic ramus fx; difficulty in walking Onset Date 10/12/24 M3 PT-IP Subjective Start: 10/13/24 13:13 Freq: NEEDED Status: Active Protocol: Document 10/14/24 14:55 AB (Rec: 10/14/24 15:57 AB [id number]) Subjective Physical Therapy Visit Type Type Treatment Note Visit Start Time 14:55 Visit Stop Time 15:30 Number of [employer] Visits 0 Physical Therapy Visit Comments Patient Comments agreeable to do PT Therapy Pain Assessment Pain When Pain Assessed During Mobility Pain Present Pain Present Pain Reported Location Left hip Scale Used pain scale not stated Pain Behaviors Guarding,[place] Pain Management Techniques Distraction,Modification of Treatment,Re-positioning, Timing of Activity with Medications M4 PT-IP Mobility and Gait Start: 10/13/24 13:13 Freq: NEEDED Status: Active Protocol: Document 10/14/24 14:55 AB (Rec: 10/14/24 15:57 AB [id number]) PT-Bed Mobility Assessment Supine to Sit Supine to Sit Standby Assistance Sit to Supine Sit to Supine Standby Assistance PT-Transfer Assessment Sit to and From Stand Sit to and from Stand Minimal Assistance,1 Person Assistance,Use of Upper Extremities Equipment Transfer Assistive Device Gait Belt,Front Wheeled Walker Orthotic/Prosthetic Devices or Brace: No Transfers Transfer Destination Chair Transfer Technique ambulated Transfer Ability Level of Assist Moderate Assistance,Maximum Assistance,1 Person Assistance ,Use of Upper Extremities Comments Mobility Comments pt in bed and agreed to do PT. supine to sit SBA. sit to stand min A and ambulated ~ 5 ft using fWW mod to max A and max cues. pt requested to sit due to increase L hip pain in walking. positioned chair close to pt and pt sat down. pt presents with antalgic gait and pt stated that she is not able to put too much weight on LLE due to pain. pt rested and requested to go back to bed. sit to stand from chair min A and ambulated back to bed using FWW mod to max A and max cues. cued for steadiness and quads activation. sit to supine SBA . positioned pt in bed. call light and table placed within reach. Gait Assessment Gait Gait Assistance Required: Moderate Assistance,Maximum Assistance,1 Person Assist Distance (Feet) 5 Able to Maintain Weight Bearing Status Yes During Gait Assistive Devices Assistive Device Gait Belt,Front Wheeled Walker Orthotic/Prosthetic Devices or Brace: No Gait Deviations General Gait Pattern Antalgic,Decreased Stride Length,Decreased Feet Clearance,Step-to Gait Factors Limiting Gait Function Factors Limiting Gait Function Decreased Activity Tolerance, Decreased Strength,Limited Range of Motion,Pain,Poor Balance,Poor Safety Awareness M5 PT-IP Objective Assessments Start: 10/13/24 13:13 Freq: NEEDED Status: Active Protocol: Document 10/13/24 11:20 AB (Rec: 10/13/24 13:28 AB [id number]) Orientation Orientation/Cognition Level of Alertness Alert Orientation Name,Place,Situation Language Function Ability Hard of Hearing Safety Awareness Decreased Safety Awareness Memory Description Short Term Impaired Gross Range of Motion Lower Extremity ROM Assessment Within Functional Limits Strength Lower Extremity Strength Assessment Left Impaired Hip 3-/5 Knee 3+/5 Muscle Tone Muscle Tone WNL Yes M6 PT-IP Treatment Start: 10/13/24 13:13 Freq: NEEDED Status: Active Protocol: Document 10/14/24 14:55 AB (Rec: 10/14/24 15:57 AB [id number]) Physical Therapy Treatment Education Education Provided Safety M7 PT-IP Assessment and Plan Start: 10/13/24 13:13 Freq: NEEDED Status: Active Protocol: Document 10/14/24 14:55 AB (Rec: 10/14/24 15:57 AB [id number]) PT Summary Assessment and Plan Potential Rehabilitation Potential Fair Summary Impairments Pain,ROM,Strength,Balance, Coordination,Sensation,Tone, Cognition,Bed Mobility, Transfers,Gait,Activity Tolerance Progress Towards Goals Slow Progress due to Pain,Slow Progress due to Activity Tolerance Assessment Summary pt improving slowly with mobility but continues to not tolerate much ambulation due to c/o increase L hip/buttock pain. pt requiring mod to max A with ambulation using fWW and was only able to walk ~ 5 ft today. pt will require SNF rehab to improve overall strength and mobility. Goals Bed Mobility Goal Independent Transfer Goal Standby Assistance,Front Wheeled Walker Gait Goal Standby Assistance,Front Wheel Walker Gait Distance 50 Other Goals improve transfers, ambulation using FWW/4WW ~ 100 ft SBA Days to Meet Goals 10 Frequency of Treatment Frequency Of Treatment Once a Day Treatment Plan Physical Therapy Treatment Plan Bed Mobility Training,Transfer Training,Gait Training, Therapeutic Exercise,Balance Retraining,Discharge Planning, Hot or Cold Pack,Neuromuscular Re-ed,Coordination Retraining ,Manual Therapy Precautions Other Precautions falls Weight Bearing Status Weight Bearing Status Weight Bear as Tolerated Allowed Weight Bearing Amount (enter % LLE WBAT or #) (%) Recommendations To Nursing Amount of Assist Needed 1 Person Assist Discharge Recommendations PT Discharge Recommendations SNF Rehab Transportation Needs at Discharge Private Vehicle - PT assist 1
[2024-10-14] MEDS: ACETAMINOPHEN 325 MG TABLET 650 MG PO (20:08)
[2024-10-14] MEDS: HYDROCODONE/ACET 5/325 TABLET 1 TAB PO (21:49)
[2024-10-15 05:29] LABS: Add Manual Diff / Slide Review NO; Basophils Absolute Auto 0 /uL (0-100); Basophils Percent Auto 0.5 % (0-2); Eosinophils Absolute Auto 200 /uL (0-450); Hemoglobin 10.8 g/dL (12.0-16.0); Lymphocytes Absolute Auto 1600 /uL (1100-4500); Lymphocytes Percent Auto 28.7 % (25-40); Mean Corpuscular HGB Conc 33.8 % (30-36); Mean Corpuscular Hemoglobin 32.5 PG (26-34); Mean Corpuscular Volume 96.1 fL (80-100); Monocytes Absolute Auto 600 /uL (0-900); Monocytes Percent Auto 10.2 % (3-14); Neutrophils Absolute Auto 3100 /uL (1500-7000); Neutrophils Percent Auto 57.6 % (50-75); Platelet Count 173 X10^3/uL (150-400); Red Blood Cell Count 3.33 X10^6/uL (4.0-5.2); Red Cell Distribution Width 15.1 % (11.6-14.8); White Blood Cell Count 5.4 X10^3/uL (4.5-11.0)
[2024-10-15 05:57] LABS: BUN Creatinine Ratio 32.5 (6-22); Blood Urea Nitrogen 27 mg/dL (7-17); Carbon Dioxide 21 mmol/L (22-32); Chloride 109 mmol/L (98-107); Estimated Glomerular Filt Rate > 60 mL/min (>60); Glucose 110 mg/dL (80-110); HEMOLYSIS < 15 (0-50); Sodium 137 mmol/L (137-145)
[2024-10-15 09:00] VITALS: BP 113/60; PULSE 86; RESP 19; TEMP 36.7; O2SAT 96
[2024-10-15 09:40] VITALS: BP 113/60; PULSE 86
[2024-10-15] MEDS: GABAPENTIN 100 MG CAPSULE PO ×2 (09:40→20:29)
[2024-10-15] MEDS: LOSARTAN 50 MG TABLET 100 MG PO (09:40)
[2024-10-15] MEDS: SERTRALINE 50 MG TABLET 25 MG PO (09:40)
--- NOTE | 2024-10-15 10:53 | P.PN_ITS ---
Subjective Subjective Date Patient Seen: 10/15/24 Time Patient Seen: 07:43 Interval history: Narrative: 89 F with PMH of depression and HTN and prior femur/hip fracture who presents after a mechanical ground level fall. She fell onto her left side. Workup in the ER showed a mildly displaced left pubic ramus fracture and intramuscular hematoma. She was unable to tolerate ambulation after oral pain medications. Imaging also showed a left intramuscular hematoma. She has no complaint of pain at rest, only with movement. No recent dizziness, fever, chills, abdominal pain, nausea, vomiting, or dysuria. 10/13: 89 F admitted for pubic ramus fracture. Still severe pain with walking. Otherwise pain is okay at rest. No other complaints. PT/OT recommendations for SNF. 10/14: Patient states she is comfortable at rest but reports pain with walking short distances, and was unable to manage even short distances with physical therapy today. 10/15: She continues to have limiting pain in the left hip with walking. Exam Vital Signs (past 8 hours): - 10/15/24 09:00 10/15/24 09:00 10/15/24 09:00 Temperature 98.0 F Pulse Rate 86 Respiratory Rate 19 Blood Pressure 113/60 Pulse Oximetry 96 96 Oxygen Delivery Method Room Air Room Air Oxygen Flow Rate 0 0 10/15/24 09:40 Temperature Pulse Rate 86 Respiratory Rate Blood Pressure 113/60 Pulse Oximetry Oxygen Delivery Method Oxygen Flow Rate Oxygen Delivery Method Room Air Oxygen Flow Rate 0 Narrative Exam Narrative: GEN: no acute distress, elderly woman who appears younger than stated age HEENT: moist mucous membranes, PERRL NECK: trachea midline, no JVD CV: regular rate and rhythm, no murmurs PULM: clear bilaterally ABD: soft, nontender, nondistended, no organomegaly EXT: no edema NEURO: awake, alert, oriented, no focal deficits Objective ECG Impression: 10/13/2024: Normal sinus rhythm Incomplete right bundle branch block; Left anterior fascicular block Moderate voltage criteria for LVH, may be normal variant ( R in aVL , Mode product ) Imaging *: Radiologist's impression: 1. Hip xray 10/12/2024: Bilateral hip arthrosis. No definite acute displaced femoral neck fracture. No hip dislocation. Possible bony irregularity in the inferior left pubic ring. Consider CT to further evaluate given reported history. Right femur postsurgical changes, with fracture bridging. 2. Chest xray 10/12/2024: No acute cardiopulmonary abnormality is seen. 3. Pelvis CT 10/12/2024: 1. Acute comminuted and minimally displaced fracture involving left inferior pubic ramus. 2. No other acute pelvic fracture or dislocation. Prior internal fixation of right proximal femur. Bilateral hip joint osteoarthritis. No evidence of avascular necrosis of femoral head. 3. Mild soft tissue swelling adjacent to left inferior pubic ramus fracture site with intramuscular hematoma involving adjacent left obturator externus muscle. No discrete drainable fluid collection or large soft tissue mass. No abnormal soft tissue calcifications. No pelvic free fluid or free air. Labs 10/15/24 05:01 10/15/24 05:01 Labs: Laboratory Results - last 24 hr 10/15/24 05:01 WBC 5.4 RBC 3.33 L Hgb 10.8 L Hct 32.0 L MCV 96.1 MCH 32.5 MCHC 33.8 RDW 15.1 H Plt Count 173 Neut % (Auto) 57.6 Lymph % (Auto) 28.7 [place] % (Auto) 10.2 Eos % (Auto) 3.0 Baso % (Auto) 0.5 Neut # (Auto) 3100 Lymph # (Auto) 1600 [place] # (Auto) 600 Eos # (Auto) 200 Baso # (Auto) 0 Sodium 137 Potassium 4.0 Chloride 109 H Carbon Dioxide 21 L BUN 27 H Creatinine 0.83 Estimated GFR > 60 BUN/Creatinine Ratio 32.5 H Glucose 110 Calcium 10.0 Magnesium 2.0 PFSH Social History household members: none Smoking Status: Never smoker alcohol intake: never Assessment & Plan Assessment & Plan narrative: 1. Left pubic ramus fracture. - WBAT, pain control, PT following - continue tylenol, home gabapentin 100 mg BID, not using hydrocodone. - likely SNF given ongoing inability to safely ambulate 2. Left obturator externus hematoma, acute, present on admission - stable h/h, goal Hg .>7 3. HTN - continue home ARB, replace olmesartan with losartan hospital formulary 4. Depression - continue home sertraline Code: Full, surrogate is patient's Son DVT: SCDs for now until h/h stable given hematoma. Dispo: patient admitted under observation status. Likely discharge to SNF once bed is obtained. 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
--- NOTE | 2024-10-15 11:54 | CM.DPC ---
DCP SNF Planning: Per MD, pt is medically stable to d/c to SNF once one secured and auth obtained. SW made additional local SNF referrals this morning to: [facility], [facility], [facility], [facility], [facility] (full on female beds). Return call from [facility] stating they can accept the pt and start [employer] auth today Sun 4/6. SW met bedside with pt and explained role and updated on above and pt agreeable with d/c to [facility] if no other SNFs found in [facility]. SW updated pt's son and Dtr inlaw and they confirm they just spoke to pt and she is agreeable with [facility] and they are appreciative of SW assist with securing SNF contracted with [employer]. SNEHA done and needs MD signature for hospital exempted discharge for Zoloft. JIM updated Tere at [facility] and she will submit for [employer] auth now Sun 4/. RADHA Doe
--- NOTE | 2024-10-15 12:20 | PT.IPTN ---
Physical Therapy Treatment Note M2 PT-IP Current Condition Start: 10/13/24 13:13 Freq: NEEDED Status: Active Protocol: Document 10/13/24 11:20 AB (Rec: 10/13/24 13:28 AB [id number]) Physical Therapy Current Condition Current Condition Evaluation Date 10/13/24 Treatment Diagnosis s/p fall; L pubic ramus fx; difficulty in walking Onset Date 10/12/24 M3 PT-IP Subjective Start: 10/13/24 13:13 Freq: NEEDED Status: Active Protocol: Document 10/15/24 11:55 KS (Rec: 10/15/24 12:52 KS [id number]) Subjective Physical Therapy Visit Type Type Treatment Note Visit Start Time 11:55 Visit Stop Time 12:20 Number of RADIAL ROUTER OPERATOR Visits 1 Physical Therapy Visit Comments Patient Comments agreeable to do PT Therapy Pain Assessment Pain When Pain Assessed During Mobility Pain Present Pain Present Pain Reported Location Left hip Scale Used pain scale not stated Pain Behaviors Guarding,Wincing Pain Management Techniques Distraction,Modification of Treatment,Re-positioning, Timing of Activity with Medications M4 PT-IP Mobility and Gait Start: 10/13/24 13:13 Freq: NEEDED Status: Active Protocol: Document 10/15/24 11:55 KS (Rec: 10/15/24 12:52 KS [id number]) PT-Transfer Assessment Sit to and From Stand Sit to and from Stand Minimal Assistance,1 Person Assistance,Use of Upper Extremities Equipment Transfer Assistive Device Gait Belt,Front Wheeled Walker Orthotic/Prosthetic Devices or Brace: No Transfers Transfer Destination Chair Transfer Technique ambulated Transfer Ability Level of Assist Moderate Assistance,1 Person Assistance,Use of Upper Extremities Comments Mobility Comments Pt in chair upon arrival. Min A for sit<>stand w/ FWW. Pt able to ambulate 5 ft forward and then backwards w/ FWW and Mod A. She fatigues quickly needing increased assistance and c/o increased pain w/ weight bearing. Feels less pain when ambulating backwards however needs Mod A for balance and cues for safety and FWW mgmt when backing up to chair. Reviewed ther ex and pt left in chair w/ all needs in reach. Gait Assessment Gait Gait Assistance Required: Moderate Assistance Distance (Feet) 10 Able to Maintain Weight Bearing Status Yes During Gait Assistive Devices Assistive Device Gait Belt,Front Wheeled Walker Orthotic/Prosthetic Devices or Brace: No Gait Deviations General Gait Pattern Antalgic,Decreased Stride Length,Decreased Feet Clearance,Step-to Gait Factors Limiting Gait Function Factors Limiting Gait Function Decreased Activity Tolerance, Decreased Strength,Limited Range of Motion,Pain,Poor Balance,Poor Safety Awareness Comments Gait Comments see mobility PT-Balance Assessment Sitting Balance and Reactions Static Sitting Balance Ability Good Dynamic Sitting Balance Ability Good Standing Balance and Reactions Static Standing Balance Ability Fair Dynamic Standing Balance Ability Poor Device Used FWW M5 PT-IP Objective Assessments Start: 10/13/24 13:13 Freq: NEEDED Status: Active Protocol: Document 10/13/24 11:20 AB (Rec: 10/13/24 13:28 AB [id number]) Orientation Orientation/Cognition Level of Alertness Alert Orientation Name,Place,Situation Language Function Ability Hard of Hearing Safety Awareness Decreased Safety Awareness Memory Description Short Term Impaired Gross Range of Motion Lower Extremity ROM Assessment Within Functional Limits Strength Lower Extremity Strength Assessment Left Impaired Hip 3-/5 Knee 3+/5 Muscle Tone Muscle Tone WNL Yes M6 PT-IP Treatment Start: 10/13/24 13:13 Freq: NEEDED Status: Active Protocol: Document 10/15/24 11:55 KS (Rec: 10/15/24 12:52 KS [id number]) Physical Therapy Treatment Exercises Exercises Ankle Pumps,Gluteal Sets,Quad Sets Education Education Provided Safety M7 PT-IP Assessment and Plan Start: 10/13/24 13:13 Freq: NEEDED Status: Active Protocol: Document 10/15/24 11:55 KS (Rec: 10/15/24 12:52 KS [id number]) PT Summary Assessment and Plan Potential Rehabilitation Potential Fair Summary Impairments Pain,ROM,Strength,Balance, Coordination,Sensation,Tone, Cognition,Bed Mobility, Transfers,Gait,Activity Tolerance Progress Towards Goals Slow Progress due to Pain,Slow Progress due to Activity Tolerance Assessment Summary Pt making slow progress however remains unsteady on her feet and unable to toelrate more than a few feet of ambulation due to pain and weakness. She is a high risk for falls and needs Mod A for transfers w/ FWW. Pt will require SNF rehab to improve overall strength and mobility. Goals Bed Mobility Goal Independent Transfer Goal Standby Assistance,Front Wheeled Walker Gait Goal Standby Assistance,Front Wheel Walker Gait Distance 50 Other Goals improve transfers, ambulation using FWW/4WW ~ 100 ft SBA Days to Meet Goals 10 Frequency of Treatment Frequency Of Treatment Once a Day Treatment Plan Physical Therapy Treatment Plan Bed Mobility Training,Transfer Training,Gait Training, Therapeutic Exercise,Balance Retraining,Discharge Planning, Hot or Cold Pack,Neuromuscular Re-ed,Coordination Retraining ,Manual Therapy Precautions Other Precautions falls Weight Bearing Status Weight Bearing Status Weight Bear as Tolerated Allowed Weight Bearing Amount (enter % LLE WBAT or #) (%) Recommendations To Nursing Amount of Assist Needed 1 Person Assist Discharge Recommendations PT Discharge Recommendations SNF Rehab Transportation Needs at Discharge Private Vehicle - PT assist 1
[2024-10-15 13:00] VITALS: BP 136/70; PULSE 86; RESP 14; TEMP 36.8; O2SAT 96
[2024-10-15 17:00] VITALS: O2SAT 96
--- NOTE | 2024-10-15 18:29 | PC.NURSE ---
Day shift: Pt A&Ox4 but forgetful. Calls appropriately. Able to ambulate in room with 1PA FWW. Denies pain at this time. Bed alarm active. Declining last set of vital signs. Care ongoing.
[2024-10-15 20:00] VITALS: BP 116/55; PULSE 70; RESP 19; TEMP 36.4; O2SAT 97
[2024-10-15] MEDS: ACETAMINOPHEN 325 MG TABLET 650 MG PO (20:30)
[2024-10-15] MEDS: HYDROCODONE/ACET 5/325 TABLET 1 TAB PO (22:52)
[2024-10-16 08:00] VITALS: BP 143/56; PULSE 66; RESP 18; TEMP 36.6; O2SAT 97
[2024-10-16 08:45] VITALS: O2SAT 99
[2024-10-16] MEDS: GABAPENTIN 100 MG CAPSULE PO ×2 (09:44→20:35)
[2024-10-16] MEDS: DOCUSATE 100 MG CAPSULE PO (09:44)
[2024-10-16] MEDS: SERTRALINE 50 MG TABLET 25 MG PO (09:44)
[2024-10-16 09:45] VITALS: BP 116/39; PULSE 66
--- NOTE | 2024-10-16 11:07 | CM.DPC ---
Addendum entered by RADHA Doe 10/16/24 16:20: ADD: Per [facility], they obtained [employer] auth and can accept pt tomrorow 10/17. Admissions spoke to pt's son and updated on acceptance Tu and updated him that they cannot provide transport and son checking with [facility] for transportation between [id number] tomorrow Tu. BF Original Note: DCP SNF Cont: SW faxed updated clinicals to [facility] towards insurance auth and auth still pending as of this morning. signed PASRR for exempted hospital discharge for depression. Plan: [facility] once [employer] auth obtained and possible transport via [facility]. RADHA Doe
[2024-10-16 16:00] VITALS: BP 127/59; PULSE 66; RESP 16; TEMP 36.6; O2SAT 97
--- NOTE | 2024-10-16 16:07 | OT.IP.TRT ---
Occupational Therapy Treatment Note M2 OT-IP Current Condition Start: 10/13/24 15:23 Freq: Status: Active Protocol: Document 10/13/24 15:23 [facility] (Rec: 10/13/24 15:41 [facility] [id number]) Occupational Therapy Current Condition Current Condition Evaluation Date 10/13/24 Treatment Diagnosis Left pubic ramus fx Diagnosis Onset Date 10/12/24 Weight Bearing Status Weight Bearing Status Weight Bear as Tolerated Allowed Weight Bearing Amount (enter % Per hospitalist pt to be WBAT. or #) (%) M3 OT- IP Subjective and Pain Start: 10/13/24 15:23 Freq: Status: Active Protocol: Document 10/16/24 16:08 [facility] (Rec: 10/16/24 16:20 [facility] Desktop) OT- Subjective Occupational Therapy Visit Type Type Treatment Note Visit Start Time 15:50 Visit Stop Time 16:07 Notes co-treat with P.T. OT Pain Assessment Pain When Pain Assessed At Rest Pain Present Pain Present Denied Pain M4 OT- IP ADL's Start: 10/13/24 15:23 Freq: Status: Active Protocol: Document 10/16/24 16:08 [facility] (Rec: 10/16/24 16:20 [facility] Desktop) OT [id number] Comments OT Self-Feeding Comments not meal time OT ADL-Grooming General Evaluation Grooming Ability Independent Comments OT Grooming Comments washing hands OT ADL-Oral Care General Eval Oral Care Ability Standby Assistance Areas of Assistance Brushing Teeth Comments Oral Care Comments standing at sink OT ADL-Dressing Comments OT Dressing Comments not performed OT ADL-Toileting Comments OT Toileting Comments pt declined need OT ADL-Bathing Comments OT Bathing Comments not performed M5 OT- IP IADL's Start: 10/13/24 15:23 Freq: Status: Active Protocol: Document 10/13/24 15:23 [facility] (Rec: 10/13/24 15:41 [facility] [id number]) OT-Instrumental Activities of Daily Living Home Safety Awareness Awareness of Need for Assistance at Home Good Awareness Ability to Problem Solve Emergency Able to Problem Solve Situations Medication Management Medication Management Caregiver Provides Supervision Medication Management Comments Caregiver assist with set-up of meds. Money Management Money Management Caregiver Provides Assistance Money Management Comments Caregiver signs check due to decreased hand writing from CTS. Meal Preparation Meal Preparation Caregiver Provides Assist Shift Foreman Shift Foreman Caregiver Provides Assist Driving Driving Comments Pt states still able to drive short distances. M6 OT- IP Functional Cognition Start: 10/13/24 15:23 Freq: Status: Active Protocol: Document 10/13/24 15:23 [facility] (Rec: 10/13/24 15:41 [facility] [id number]) Cognitive Factors Limiting Selfcare Function Cognitive Ability Level of Alertness Alert Patient Orientation Name,Age,Birthday,Month,Date, Year,Day of Week,Place, Situation Attention Span Ability Capable of Focused Attention, Capable of Sustained Attention Ability to Follow Commands Able to Follow One Step Commands Memory Description Short Term Impaired Safety Awareness Underestimates Need for Assistance Cognitive Tests SLUMS Pt's primary language is [place] Citizen. Pt admits that she is not thinking as clearly as she usually does. Pt states has to write everything down due to her poor STM. Pt scored 22/ 30 which implies mild neurocognitive deficits. Pt able to recall 10 animal in one minute, able to recall 3/5 objects after time passed, not able to recite 4 digit number backwards, and able to answer 2/4 questions right after paragraph read. Cognitive Comments Cognitive Assessment Comments Pt needing increased time to complete SLUMS. Pt needing MAX vc for safety with useof 4ww and forgetting to lock it when using it. Pt also insistent on sitting on the 4ww to roll closer to the toilet and then stand to transfer. OT- Vision and Hearing OT- Hearing Assessment OT- Hearing Assessment WFL OT- Vision Assessment Visual Acuity Glasses All The Time Visual Attentiveness WFL Occular Pursuits WFL M7 OT- IP Mobility and Balance Start: 10/13/24 15:23 Freq: Status: Active Protocol: Document 10/16/24 16:08 [facility] (Rec: 10/16/24 16:20 [facility] Desktop) OT-Transfer Assessment Sit to and From Stand Sit to and from Stand Contact Guard Assistance Transfers Transfer Ability Minimal Assistance Technique Transfer Destination Chair Transfer Technique Stand Step Pivot Devices Transfer Assistive Devices Gait Belt,Front Wheeled Walker Comments Mobility Comments Pt ambulated from chair to sink for ADLs standing then took a few steps away from the chair before returning to the chair with min a and extra time. Pt with pain when weight shifting and putting weight through the LLE. OT- Gait Assessment Gait Gait Assistance Required: Minimum Assistance Assistive Devices Assistive Device Gait Belt,Front Wheeled Walker Comments Gait Ability Comments walker changed from standard height to pediatric with better use of the walker but pt states pain to the R hand when pushing down through the walker. OT- Balance Assessment Sitting Balance and Reactions Static Sitting Balance Ability Good Dynamic Sitting Balance Ability Good Standing Balance and Reactions Static Standing Balance Ability Fair Dynamic Standing Balance Ability Fair M8 OT- IP Objective Assessments Start: 10/13/24 15:23 Freq: Status: Active Protocol: Document 10/13/24 15:23 [facility] (Rec: 10/13/24 15:41 [facility] [id number]) OT Gross Range of Motion Upper Extremity Range of Motion ROM Impairments Decreased at end ROM OT Strength Comments Strength Comments BUE 10/14 OT- Coordination Assessment Comments Coordination Comments Arthritic changes to hands. M9 OT- IP Assessment and Plan Start: 10/13/24 15:23 Freq: Status: Active Protocol: Document 10/16/24 16:08 [facility] (Rec: 10/16/24 16:20 [facility] Desktop) OT Summary Assessment and Plan Potential Rehabilitation Potential Good Analytic Complexity at Evaluation Moderate Summary OT Impairments Pain,Balance,Functional Cognition,Functional Mobility, Self-Feeding,Grooming,Dressing ,Toileting,Bathing,Toilet Transfers,Shower Transfers, Activity Tolerance Progress Towards Goals Progressing Toward Goals Assessment Summary Pt mod complexity and main barriers are pain, decreased safety awareness, and decreased activity tolerance. Pt is improving now needing min a for mobility but is severely limited by pain with mobility. Pt is planned for d/ c to SNF tomorrow (10/17/24) per SW. Goals Self-Feeding Goal Independent Grooming Goal Independent Dressing Goal Independent Toileting Goal Independent Bathing Goal Standby Assistance Toilet Transfer Goal Independent Shower Transfer Goal Standby Assistance Days to Meet Goals 20 Frequency of Treatment Frequency Of Treatment Once a Day Other frequency 3-5x/week Treatment Plan OT Treatment Plan ADL Training,Functional Cognition Training,Functional Mobility,Patient/Family Education,Discharge Planning Discharge Recommendations OT Discharge Recommendations SNF Rehab Transportation Needs at Discharge Wheelchair/Cabulance
--- NOTE | 2024-10-16 16:17 | PT.IPTN ---
Physical Therapy Treatment Note M2 PT-IP Current Condition Start: 10/13/24 13:13 Freq: NEEDED Status: Active Protocol: Document 10/13/24 11:20 AB (Rec: 10/13/24 13:28 AB [id number]) Physical Therapy Current Condition Current Condition Evaluation Date 10/13/24 Treatment Diagnosis s/p fall; L pubic ramus fx; difficulty in walking Onset Date 10/12/24 M3 PT-IP Subjective Start: 10/13/24 13:13 Freq: NEEDED Status: Active Protocol: Document 10/16/24 15:50 MB (Rec: 10/16/24 16:17 MB Desktop) Subjective Physical Therapy Visit Type Type Treatment Note Visit Start Time 15:50 Visit Stop Time 16:07 Number of STOCK CHASER Visits 0 Physical Therapy Visit Comments Patient Comments Pt states it is not a good time, she is upset from being confused and not discharging today and it sounds that her son was upset on the phone. Caregiver in room and is encouraging to pt. Therapy Pain Assessment Pain When Pain Assessed During Mobility Pain Present Pain Present Pain Reported Location Left hip Scale Used Not rated M4 PT-IP Mobility and Gait Start: 10/13/24 13:13 Freq: NEEDED Status: Active Protocol: Document 10/16/24 15:50 MB (Rec: 10/16/24 16:17 MB Desktop) PT-Transfer Assessment Sit to and From Stand Sit to and from Stand Contact Guard Assistance,1 Person Assistance,Use of Upper Extremities Equipment Transfer Assistive Device Gait Belt,Front Wheeled Walker Orthotic/Prosthetic Devices or Brace: No Transfers Transfer Destination Chair Transfer Technique Ambulation Transfer Ability Level of Assist Contact Guard Assistance,1 Person Assistance,Use of Upper Extremities Comments Mobility Comments Cues to push up from the chair and to step back and to reach back for it to sit Gait Assessment Gait Gait Assistance Required: Minimum Assistance,1 Person Assist Distance (Feet) 10 Able to Maintain Weight Bearing Status Yes During Gait Assistive Devices Assistive Device Gait Belt,Front Wheeled Walker Orthotic/Prosthetic Devices or Brace: No Gait Deviations General Gait Pattern Antalgic,Decreased Stride Length,Decreased Feet Clearance,Step-to Gait Factors Limiting Gait Function Factors Limiting Gait Function Decreased Activity Tolerance, Decreased Strength,Limited Range of Motion,Pain,Poor Balance,Poor Safety Awareness Comments Gait Comments 10'x2, some backwards stepping , changed out for pedatric walker to see if she can step closer to walker and pt does report arms are fatigued. Pt stands at sink for many minutes with OT (at least 5') and is more antalgic with gait afterwards PT-Balance Assessment Sitting Balance and Reactions Static Sitting Balance Ability Good Dynamic Sitting Balance Ability Good Standing Balance and Reactions Static Standing Balance Ability Fair Dynamic Standing Balance Ability Fair Device Used RW M5 PT-IP Objective Assessments Start: 10/13/24 13:13 Freq: NEEDED Status: Active Protocol: Document 10/13/24 11:20 AB (Rec: 10/13/24 13:28 AB [id number]) Orientation Orientation/Cognition Level of Alertness Alert Orientation Name,Place,Situation Language Function Ability Hard of Hearing Safety Awareness Decreased Safety Awareness Memory Description Short Term Impaired Gross Range of Motion Lower Extremity ROM Assessment Within Functional Limits Strength Lower Extremity Strength Assessment Left Impaired Hip 3-/5 Knee 3+/5 Muscle Tone Muscle Tone WNL Yes M6 PT-IP Treatment Start: 10/13/24 13:13 Freq: NEEDED Status: Active Protocol: Document 10/15/24 11:55 KS (Rec: 10/15/24 12:52 KS [id number]) Physical Therapy Treatment Exercises Exercises Ankle Pumps,Gluteal Sets,Quad Sets Education Education Provided Safety M7 PT-IP Assessment and Plan Start: 10/13/24 13:13 Freq: NEEDED Status: Active Protocol: Document 10/16/24 15:50 MB (Rec: 10/16/24 16:17 MB Desktop) PT Summary Assessment and Plan Potential Rehabilitation Potential Fair Status of Condition at Evaluation Evolving Summary Impairments Pain,ROM,Strength,Balance, Coordination,Cognition,Bed Mobility,Transfers,Gait, Activity Tolerance Progress Towards Goals Slow Progress due to Pain Assessment Summary Slow progression with transfers and gait today. Pt with some anxiety/upset about not d/cing today. Encouragement provided today. Ongoing antalgic gait. Goals Bed Mobility Goal Independent Transfer Goal Standby Assistance,Front Wheeled Walker Gait Goal Standby Assistance,Front Wheel Walker Gait Distance 50 Other Goals improve transfers, ambulation using FWW/4WW ~ 100 ft SBA Days to Meet Goals 10 Frequency of Treatment Frequency Of Treatment Once a Day Treatment Plan Physical Therapy Treatment Plan Bed Mobility Training,Transfer Training,Gait Training, Therapeutic Exercise,Balance Retraining,Discharge Planning, Hot or Cold Pack,Neuromuscular Re-ed,Coordination Retraining ,Manual Therapy Precautions Other Precautions falls Weight Bearing Status Weight Bearing Status Weight Bear as Tolerated Allowed Weight Bearing Amount (enter % LLE WBAT or #) (%) Recommendations To Nursing Amount of Assist Needed 1 Person Assist Discharge Recommendations PT Discharge Recommendations SNF Rehab Transportation Needs at Discharge Private Vehicle - PT assist 1
--- NOTE | 2024-10-16 16:19 | P.PN_ITS ---
Subjective Subjective Date Patient Seen: 10/16/24 Time Patient Seen: 16:20 Interval history: Chief complaint: Pelvic pain from pubic ramus fracture: History of present illness: 89 F with PMH of depression and HTN and prior femur/hip fracture who presents after a mechanical ground level fall. She fell onto her left side. Workup in the ER showed a mildly displaced left pubic ramus fracture and intramuscular hematoma. She was unable to tolerate ambulation after oral pain medications. Imaging also showed a left intramuscular hematoma. She has no complaint of pain at rest, only with movement. No recent dizziness, fever, chills, abdominal pain, nausea, vomiting, or dysuria. 4: 89 F admitted for pubic ramus fracture. Still severe pain with walking. Otherwise pain is okay at rest. No other complaints. PT/OT recommendations for SNF. 45: Patient states she is comfortable at rest but reports pain with walking short distances, and was unable to manage even short distances with physical therapy today. 4/6: She continues to have limiting pain in the left hip with walking. 7: Is able to get up and down and walk but is still quite painful Physical exam: No acute distress No respiratory distress No focal neurologic findings Assessment & Plan 1. Left pubic ramus fracture. - WBAT, pain control, PT following - continue tylenol, home gabapentin 100 mg BID, not using hydrocodone. - likely SNF given ongoing inability to safely ambulate 2. Left obturator externus hematoma, acute, present on admission - stable h/h, goal Hg .>7 3. HTN - continue home ARB, replace olmesartan with losartan hospital formulary 4. Depression - continue home sertraline Code: Full, surrogate is patient's Son DVT: SCDs for now until h/h stable given hematoma. Dispo: patient admitted under observation status. Likely discharge to SNF once bed is obtained. I spent 25 minutes in the evaluation of this patient 50% of that time was [id number] Exam Vital Signs (past 8 hours): - 10/16/24 08:45 10/16/24 09:45 Pulse Rate 66 Blood Pressure 116/39 L Pulse Oximetry 99 Oxygen Delivery Method Room Air Oxygen Delivery Method Room Air Oxygen Flow Rate 0 Objective Labs 10/15/24 05:01 10/15/24 05:01 [facility] Social History household members: none Smoking Status: Never smoker alcohol intake: never Assessment & Plan Time-Based Coding :: [TOTAL MINUTES] spent with patient and on the chart (including review of chart, obtaining history, exam, reviewing outside data, placing orders, documenting exam and treatment plan, and counseling patient) on [DATE].
[2024-10-16 19:00] VITALS: BP 128/53; PULSE 76; RESP 18; TEMP 36.4; O2SAT 96
[2024-10-16 19:29] VITALS: O2SAT 97
[2024-10-16] MEDS: HYDROCODONE/ACET 5/325 TABLET 1 TAB PO (20:36)
[2024-10-17] MEDS: HYDROCODONE/ACET 5/325 TABLET 1 TAB PO (04:05)
[2024-10-17 07:00] VITALS: BP 136/58; PULSE 67; RESP 17; TEMP 36.6; O2SAT 99
--- NOTE | 2024-10-17 08:38 | CM.DPC ---
DCP Cont. Reviewed EMR and team rounds for status updates. Pt has been medically cleared for [facility]. Her son will pick her up at 10:30am. PASSAR and d/c clinicals faxed. No further CM d/c needs indicated at this time.
[2024-10-17] MEDS: GABAPENTIN 100 MG CAPSULE PO (08:46)
[2024-10-17] MEDS: SERTRALINE 50 MG TABLET 25 MG PO (08:46)
[2024-10-17 08:47] VITALS: BP 136/58
[2024-10-17] MEDS: DOCUSATE 100 MG CAPSULE PO (08:47)
[2024-10-17] MEDS: LOSARTAN 50 MG TABLET 100 MG PO (08:47)
--- NOTE | 2024-10-17 11:06 | PM.DS.1 ---
History of Present Illness History of Present Illness Chief complaint: GLF Discharge Providers Provider Date of admission: 10/12/24 16:58 Discharge Date: 10/17/24 Primary care physician: Henrry Lizarraga MD Consults: 10/12/24 17:45 Consult to Occupational Therapy Evaluate & Treat Comment: Physician Instructions: Evaluate and treat Consult to Physical Therapy Evaluate & Treat Comment: Physician Instructions: Evaluate and Treat Discharge provider: Melvin Irene MD Summary Hospital Course Hospital Course: Chief complaint: Pelvic pain from pubic ramus fracture: History of present illness: 89 F with PMH of depression and HTN and prior femur/hip fracture who presents after a mechanical ground level fall. She fell onto her left side. Workup in the ER showed a mildly displaced left pubic ramus fracture and intramuscular hematoma. She was unable to tolerate ambulation after oral pain medications. Imaging also showed a left intramuscular hematoma. She has no complaint of pain at rest, only with movement. No recent dizziness, fever, chills, abdominal pain, nausea, vomiting, or dysuria. 4/4: 89 F admitted for pubic ramus fracture. Still severe pain with walking. Otherwise pain is okay at rest. No other complaints. PT/OT recommendations for SNF. 4/5: Patient states she is comfortable at rest but reports pain with walking short distances, and was unable to manage even short distances with physical therapy today. 4/6: She continues to have limiting pain in the left hip with walking. 4/7: Is able to get up and down and walk but is still quite painful Physical exam: No acute distress No respiratory distress No focal neurologic findings Exam Vital Signs (past 8 hours): - 10/17/24 07:00 10/17/24 08:47 Temperature 97.8 F Pulse Rate 67 Respiratory Rate 17 Blood Pressure 136/58 L 136/58 L Pulse Oximetry 99 Oxygen Flow Rate 0 Oxygen Delivery Method Room Air Oxygen Flow Rate 0 Objective Labs 10/15/24 05:01 10/15/24 05:01 ON LICENSE OF [facility] Social History household members: none Smoking Status: Never smoker alcohol intake: never Discharge Assessment & Plan Assessment and Plan Plan of Treatment: [address] [address] Progress Note Patient: Christian Villagran MR#: [id number] : 1935 Acct:[id number] Age/Sex: 89 / F Admit Date: 10/12/24 Provider: Melvin Irene MD Subjective Subjective Date Patient Seen: 10/16/24 Time Patient Seen: 16:20 Interval history: Chief complaint: Pelvic pain from pubic ramus fracture: History of present illness: 89 F with PMH of depression and HTN and prior femur/hip fracture who presents after a mechanical ground level fall. She fell onto her left side. Workup in the ER showed a mildly displaced left pubic ramus fracture and intramuscular hematoma. She was unable to tolerate ambulation after oral pain medications. Imaging also showed a left intramuscular hematoma. She has no complaint of pain at rest, only with movement. No recent dizziness, fever, chills, abdominal pain, nausea, vomiting, or dysuria. 4/4: 89 F admitted for pubic ramus fracture. Still severe pain with walking. Otherwise pain is okay at rest. No other complaints. PT/OT recommendations for SNF. 4/5: Patient states she is comfortable at rest but reports pain with walking short distances, and was unable to manage even short distances with physical therapy today. 4/6: She continues to have limiting pain in the left hip with walking. 4/7: Is able to get up and down and walk but is still quite painful Physical exam: No acute distress No respiratory distress No focal neurologic findings Assessment & Plan 1. Left pubic ramus fracture. - WBAT, pain control, PT following - continue tylenol, home gabapentin 100 mg BID, not using hydrocodone. - likely SNF given ongoing inability to safely ambulate 2. Left obturator externus hematoma, acute, present on admission - stable h/h, goal Hg .>7 3. HTN - continue home ARB, replace olmesartan with losartan hospital formulary 4. Depression - continue home sertraline Code: Full, surrogate is patient's Son Greater than 35 minutes was required for discharging this patient Discharge Plan Discharge Plan Patient Disposition: Home Discharge orders & Medications Prescriptions: Continued sennosides [senna] 8.6 mg tablet 8.6 mg PO BID PRN (Reason: Constipation) calcium carbonate-vitamin D3 600 mg-5 mcg (200 unit) Tablet 1 tab PO DAILY Rx Instructions: 600MG / 20MG gabapentin 100 mg Tablet 100 mg PO PRN PRN (Reason: NERVE PAIN) turmeric 1,000 MG 1 cap PO DAILY sertraline 25 mg tablet 25 mg PO DAILY Patient Comments: Take 1 tablet by mouth once a day olmesartan 40 mg tablet 40 mg PO DAILY acetaminophen 325 mg Tablet 650 mg PO Q6H PRN (Reason: Fever/Mild Pain (1-3)) Qty: 30 0RF polyethylene glycol 3350 17 gram Powder In Packet 17 g PO DAILY PRN (Reason: Constipation) Qty: 14 0RF bisacodyl 10 mg Suppository 10 mg [place] DAILY PRN (Reason: Constipation) Qty: 12 0RF Follow up/Referrals: Henrry Lizarraga MD [Primary Care Provider] - Visit Report/Discharge Packet Stand Alone Forms: Patient Portal/API, Stroke Signs & Symptoms Discharge Data Primary Care Provider: Henrry Lizarraga Attending Provider: Henrry Borden Admit Date/Time: 10/12/24 16:58
--- NOTE | 2024-10-17 11:27 | PC.NURSE ---
Pt has showered and dressed and is ready for discharge. IV has been removed. Son is here to lemon picker Pt and drive-her to [facility]. Belongings are packe up and went with Pt and Son. Called report to Tad at [facility]-no further questions. Pt out via w/c by RN to [facility] with Son and all belongings.
== END 2024-10-17 11:29 ==
LOC: ED 14:32 → AC 16:59 → ICU 17:04 → AC 10-14 11:37
PROVIDERS: Admitting Provider Internal Medicine; Emergency Provider Emergency Medicine; PCP Family Medicine; Referring Provider Emergency Medicine; Visit Provider Internal Medicine
DX: S32.592A Other specified fracture of left pubis, initial encounter for closed fracture (principal); W18.30XA Fall on same level, unspecified, initial encounter; Y92.009 Unspecified place in unspecified non-institutional (private) residence as the place of occurrence of the external cause; I10 Essential (primary) hypertension; F32.A Depression, unspecified
CPT/HCPCS: 36415; 71045; 72192; 73502; 80048; 80053; 83605; 83735; 83880; 84484; 85025; 85610; 93005; 96360; 96361; 97110; 97116; 97163; 97166; 97530; 97535; 99284; G0378